=== PATIENT | male | born 1970 | race Caucasian/White ===

== ENCOUNTER 2016-09-12 20:25 | Observation (INO) | payer OTHER, SELFPAY ==
[2016-09-12] MEDS ORDERED: BABY ASPIRIN 81 MG CHEW PO ONE (20:43)
[2016-09-12] MEDS ORDERED: MORPHINE SULFATE 4 MG INJ IV ONE (20:43)
[2016-09-12] MEDS ORDERED: Zofran 4 MG/2 ML VIAL IV ONE (20:43)
[2016-09-12] MEDS ORDERED: Zofran 4 MG/2 ML VIAL ONE (20:48)
[2016-09-12] MEDS ORDERED: BABY ASPIRIN 81 MG CHEW ONE (20:49)
[2016-09-12] MEDS ORDERED: MORPHINE SULFATE 4 MG INJ ONE (20:49)
--- NOTE | 2016-09-12 20:51 | ERPHSYRPT ---
- History of Present Illness Time Seen by Provider: 09/12/16 20:39 Historian: patient Exam Limitations: no limitations Patient Subjective Stated Complaint: states that he was sitting at the elementary school show x 1 hour ago et began to have left-sided CP that radiated into the neck and upper arm - onset nausea and diaphoresis as well Triage Nursing Assessment: ambulatory to treatment area - steady gait - moves all extremities with equal strength. alert/oriented - anxious affect. skin pwd - no rash/injury. 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 He arrives with complaint of fluttering in the left anterior chest associated with throbbing pain in his left neck and upper left back symptoms since one hour the case occurred while the patient was watching a his children's school show. Patient states he had nausea she had diaphoresis states he had some shortness of breath. 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 they were 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, patient's chart shows a history of CABG as a child he states that he had open heart surgery for valve replacement, patient with a history of narcolepsy, Past surgical history includes heart valve replacement 10 years old questionable CABG, cholecystectomy, hernia repair, orthopedic surgery, right shoulder surgery Timing/Duration: today (one hour ago) Activities at Onset: other (watching a school show) Quality: throbbing Location: other (fluttering left upper chest throbbing left neck and back) Chest Pain Radiation: jaw, neck, back Severity of Pain-Max: moderate Severity of Pain-Current: moderate Modifying Factors: Improves With: nothing Aspirin Treatment Today: 81 mg x 1, provided by ED Allergies/Adverse Reactions: gabapentin [From Neurontin] Allergy (Severe, Verified 09/12/16 20:31) headaches escitalopram oxalate [From Lexapro] Allergy (Verified 09/12/16 20:31) Home Medications: Atorvastatin Calcium [Lipitor 20MG Tablet] 20 mg PO DAILY 03/06/12 [History] Metformin HCl 500 mg [Glucophage 500 MG] 500 mg PO BID 03/06/12 [History] Carvedilol 12.5 mg [Coreg 12.5 mg] 12.5 mg PO BID 10/25/12 [History] Omeprazole 20 MG [Prilosec 20 mg] 40 mg PO BID 10/25/12 [History] Testosterone Cypionate [Depo-Testosterone] 200 mg IM UD 10/25/12 [History] Albuterol 2.5 mg/3 ml Neb [Proventil 2.5 mg/3 ml Neb] 2.5 mg IH Q6H [History] Albuterol Sulfate [Proventil Hfa] 6.7 gm IH Q4H 09/10/15 [History] Armodafinil [Nuvigil] 250 mg PO DAILY 09/10/15 [History] Fluticasone/Vilanterol [Breo Ellipta 100-25 Mcg INH] 1 each IH DAILY 09/10/15 [ History] Isosorbide Mononitrate 60 mg [Imdur 60MG] 60 mg PO DAILY 09/10/15 [History] Ranolazine 500 MG [Ranexa 500 MG] 1,000 mg PO BID 09/10/15 [History] Ropinirole HCl [Requip] 0.25 mg PO BID 09/10/15 [History] Albuterol 2.5 mg/3 ml Neb [Proventil 2.5 mg/3 ml Neb] 2.5 mg IH UD [History] Albuterol Sulfate [Proventil Hfa] 6 gm IH UD 12/28/15 [History] Nitroglycerin 4.1 gm [facility] 12/28/15 [History] Apixaban [Eliquis] 10 mg PO DAILY 09/12/16 [History] Hx Tetanus, Diphtheria Vaccination/Date Given: Yes Hx Influenza Vaccination/Date Given: Yes Hx Pneumococcal Vaccination/Date Given: No Immunizations Up to Date: Yes - Review of Systems Constitutional: No Fever, No Chills Eyes: No Symptoms, No Discharge, No Eye Pain, No Eye Redness, No Itchy, No Photophobia, No Tearing, No Vision Changes, No Double Vision, No Foreign Body Sensation Ears, Nose, & Throat: No Ear Pain, No Ear Discharge, No Hearing Changes, No Tinnitus, No Nose Pain, No Nose Congestion, No Nose Discharge, No Sinus Drainage , No Epistaxis, No Mouth Pain, No Mouth Swelling, No Loose Teeth, No Throat Pain , No Throat Swelling, No Hoarse, No Painful Swallowing, No Snoring Respiratory: Dyspnea, No No Symptoms, No Cough, No Cyanosis, No Dyspnea on Exertion (MANCIA), No Wheezing Cardiac: Chest Pain (fluttering sensation in chest associated with throbbing pain in neck and left jaw and upper back), Palpitations, No Syncope, No Orthopnea Abdominal/Gastrointestinal: Nausea, No Abdominal Pain, No Vomiting, No Diarrhea , No Constipation, No Hematemesis, No Hematochezia, No Melena, No Dysphagia Genitourinary Symptoms: No Dysuria Musculoskeletal: No Back Pain, No Neck Pain Skin: No Rash Neurological: No Dizziness, No Focal Weakness, No Sensory Changes Psychological: No Symptoms Endocrine: No Symptoms All Other Systems: Reviewed and Negative - Past Medical History Pertinent Past Medical History: Yes Neurological History: TIA ENT History: No Pertinent History Cardiac History: Arrhythmia, Congenital Heart Disease, High Cholesterol, Myocardial Infarction ([place]), Other Respiratory History: No Pertinent History Endocrine Medical History: Diabetes Type II Musculoskeletal History: No Pertinent History GI Medical History: GERD History: No Pertinent History Psycho-Social History: No Pertinent History Male Reproductive Disorders: Other Other Medical History: 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, 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, history of afib, NARCOLEPSY - Past Surgical History Past Surgical History: Yes Neuro Surgical History: No Pertinent History Cardiac: CABG, Valve Replacement, Other Respiratory: Chest Surgery Gastrointestinal: Cholecystectomy, Hernia Repair Genitourinary: No Pertinent History Musculoskeletal: Orthopedic Surgery Male Surgical History: No Pertinent History Other Surgical History: CABG at age 10 for valve replacement and repair of holes in heart, right shoulder, great toenails removed 08/13/15 - Social History Smoking Status: Former smoker How long have you smoked: 15 Exposure to second hand smoke: No Drug Use: none Patient Lives Alone: No - Nursing Vital Signs Temperature: 98.3 F Temperature Source: Oral Pulse Rate: 68 Respiratory Rate: 16 Pain Intensity: 7 - Physical Exam General Appearance: mild distress Eye Exam: PERRL/EOMI, eyes nml inspection Ears, Nose, Throat Exam: normal ENT inspection, moist mucous membranes Neck Exam: normal inspection, non-tender, supple, full range of motion Respiratory Exam: normal breath sounds, lungs clear, No respiratory distress Cardiovascular Exam: regular rate/rhythm, normal heart sounds Gastrointestinal/Abdomen Exam: soft, No tenderness, No mass Back Exam: normal inspection, No CVA tenderness, No vertebral tenderness Extremity Exam: normal inspection, normal range of motion Neurologic Exam: alert, oriented x 3, cooperative, normal mood/affect, sensation nml, No motor deficits Skin Exam: normal color, warm, dry SpO2 Interpretation: normal (98%) SpO2: 98 Oxygen Delivery: Room Air - Course Nursing assessment & vital signs reviewed: Yes EKG Interpreted by Me: RATE (67 bpm), Sinus Rhythm, NORMAL AXIS, Right Bundle Branch Block, Other (EKG sinus rhythm with right bundle branch block 67 bpm normal axis QRS duration 156 ms, no acute ST or T wave changes no compared to April 21, 2016) - Radiology Exams Chest X-ray Interpretation: Interpreted by me, Reviewed by me, No Pneumonia, No Pneumothorax, Other (no acute disease process noted) Ordered Tests: Active Orders 24 hr Category Date Time Status ACCUCHECK [Accucheck] STAT Care 09/12/16 20:38 Active Instructional Technology Teacher STAT Care 09/12/16 20:43 Active EKG-ER Only STAT Care 09/12/16 20:43 Active IV Insertion STAT Care 09/12/16 20:43 Active Pulse Oximetry (ED) STAT Care 09/12/16 20:43 Active CHEST 1 VIEW (PORTABLE) Stat Exams 09/12/16 20:44 Taken CBC W DIFF Stat Lab 09/12/16 21:04 Completed CMP Stat Lab 09/12/16 21:04 Completed D-DIMER QUANTITATION Stat Lab 09/12/16 21:04 Completed PROTIME WITH INR Stat Lab 09/12/16 21:04 Completed PTT Stat Lab 09/12/16 21:04 Completed TROPONIN Q3H Lab 09/12/16 21:04 Completed TROPONIN Q3H Lab 09/12/16 23:45 Ordered TROPONIN Q3H Lab 09/13/16 02:45 Ordered TROPONIN Q3H Lab 09/13/16 05:45 Ordered TROPONIN Q3H Lab 09/13/16 08:45 Ordered Transfer Order Routine Transfer 09/12/16 22:35 Ordered Medication Summary Discontinued Medications Generic Name Dose Route Start Last Admin Trade Name Lio PRN Reason Stop Dose Admin Aspirin 81 mg 09/12/16 20:43 09/12/16 20:53 Baby Aspirin 81 Mg Chew PO 09/12/16 20:44 81 mg STAT ONE Administration Aspirin Confirm 09/12/16 20:49 Baby Aspirin 81 Mg Chew Administered 09/12/16 20:50 Dose 81 mg .ROUTE .STK-MED ONE Morphine Sulfate 4 mg 09/12/16 20:43 09/12/16 20:53 Morphine Sulfate 4 Mg Inj IV 09/12/16 20:44 4 mg STAT ONE Administration Morphine Sulfate Confirm 09/12/16 20:49 Morphine Sulfate 4 Mg Inj Administered 09/12/16 20:50 Dose 4 mg .ROUTE .STK-MED ONE Ondansetron HCl 4 mg 09/12/16 20:43 09/12/16 20:53 Zofran 4 Mg/2 Ml Vial IV 09/12/16 20:44 4 mg STAT ONE Administration Ondansetron HCl Confirm 09/12/16 20:48 Zofran 4 Mg/2 Ml Vial Administered 09/12/16 20:49 Dose 4 mg .ROUTE .STK-MED ONE Lab/Rad Data: Laboratory Result Diagrams 09/12/16 21:04 09/12/16 21:04 Laboratory Results 09/12/16 09/12/16 09/12/16 Range/Units 21:04 21:04 21:04 WBC (4.0-10.5) K/mm3 RBC (4.1-5.6) M/mm3 Hgb (12.5-18.0) gm/dl Hct (42-50) % MCV (78-100) fl MCH (26-32) pg MCHC (32-36) g/dl RDW (11.5-14.0) % Plt Count (150-450) K/mm3 MPV (6-9.5) fl Gran % (36.0-66.0) % Lymphocytes % (24.0-44.0) % Monocytes % (0.0-12.0) % Eosinophils % (0.00-5.0) % Basophils % (0.0-0.4) % Basophils # (0-0.4) INR 1.11 (0.8-3.0) PTT 30.7 (24.1-36.1) SECONDS D-Dimer < 0.200 (0.00-0.49) mg/L Sodium 142 (136-145) mEq/L Potassium 3.4 L (3.5-5.1) mEq/L Chloride 104 (98-107) mEq/L Carbon Dioxide 29.1 (21-32) mEq/L Anion Gap 12.1 (5-15) MEQ/L BUN 8 L (9-20) mg/dL Creatinine 0.79 (0.55-1.30) mg/dl Estimated GFR > 60 ML/MIN Glucose 127 H (70-110) MG/DL Calcium 9.1 (8.5-10.1) mg/dL Total Bilirubin 0.3 (0.2-1.0) mg/dL AST 16 (15-37) U/L ALT 34 (12-78) U/L Alkaline Phosphatase 71 (46-116) U/L Troponin I < 0.017 (0.000-0.056) ng/ml Serum Total Protein 6.8 (6.4-8.2) gm/dL Albumin 3.7 (3.4-5.0) g/dL 09/12/16 Range/Units 21:04 WBC 6.2 (4.0-10.5) K/mm3 RBC 4.62 (4.1-5.6) M/mm3 Hgb 13.6 (12.5-18.0) gm/dl Hct 40.4 L (42-50) % MCV 87.4 (78-100) fl MCH 29.4 (26-32) pg MCHC 33.7 (32-36) g/dl RDW 12.6 (11.5-14.0) % Plt Count 157 (150-450) K/mm3 MPV 10.6 H (6-9.5) fl Gran % 59.0 (36.0-66.0) % Lymphocytes % 30.1 (24.0-44.0) % Monocytes % 8.6 (0.0-12.0) % Eosinophils % 2.1 (0.00-5.0) % Basophils % 0.2 (0.0-0.4) % Basophils # 0.01 (0-0.4) INR (0.8-3.0) PTT (24.1-36.1) SECONDS D-Dimer (0.00-0.49) mg/L Sodium (136-145) mEq/L Potassium (3.5-5.1) mEq/L Chloride (98-107) mEq/L Carbon Dioxide (21-32) mEq/L Anion Gap (5-15) MEQ/L BUN (9-20) mg/dL Creatinine (0.55-1.30) mg/dl Estimated GFR ML/MIN Glucose (70-110) MG/DL Calcium (8.5-10.1) mg/dL Total Bilirubin (0.2-1.0) mg/dL AST (15-37) U/L ALT (12-78) U/L Alkaline Phosphatase (46-116) U/L Troponin I (0.000-0.056) ng/ml Serum Total Protein (6.4-8.2) gm/dL Albumin (3.4-5.0) g/dL - Progress Progress: improved Air Movement: fair Progress Note: 09/12/16 22:26 46-year-old white male with history of TIA, arrhythmia, congenital heart disease , hyperlipidemia, [place], diabetes, GERD, valvular replacement. Arrives with complaint of palpitations in his left upper anterior chest with pain in his neck and jaw symptoms since just prior to arrival. Patient is on Xaralto 10 mg twice a day he was given aspirin 81 mg orally. EKG is obtained no acute changes patient does have a right bundle-branch block > THIS IS CHRONIC patient states he still has somesharp pains in his left upper anterior chest and a cough now CASE IS DISCUSSED WITH dR. ADDISON GRADUATE STUDIES DEAN FOR dR. Kay will place patient on observation for serial enzymes. chest x-ray no acute changes labs are essentially normal. Will place patient on observation, telemetry with serial cardiac enzymes. - Departure Time of Disposition: 22:34 Departure Disposition: Observation (Dr. Kay) Clinical Impression: Chest pain Qualifiers: Chest pain type: unspecified Qualified Code(s): R07.9 - Chest pain, unspecified Condition: Fair Critical Care Time: No Referrals: YUMIKO KAY MD [Primary Care Provider] -
[2016-09-12 21:08] LABS: BASOPHIL % 0.2 % (0.0-0.4); Eosinophil % 2.1 % (0.00-5.0); Lymphocytes % 30.1 % (24.0-44.0); Mean Cell Volume 87.4 fl (78-100); Mean Corpuscular Hemoglobin 29.4 pg (26-32); Mean Platelet Volume 10.6 fl (6-9.5); Monocytes % 8.6 % (0.0-12.0); Platelet Count 157 K/mm3 (150-450); Red Blood Count 4.62 M/mm3 (4.1-5.6); Red Cell Distribution Width 12.6 % (11.5-14.0); White Blood Count 6.2 K/mm3 (4.0-10.5)
[2016-09-12 21:20] LABS: INR 1.11 (0.8-3.0); PROTIME 12.4 SECONDS (8.83-12.87)
[2016-09-12 21:22] LABS: PTT 30.7 SECONDS (24.1-36.1)
[2016-09-12 21:35] LABS: ALBUMIN 3.7 g/dL (3.4-5.0); ALKALINE PHOSPHATASE 71 U/L (46-116); ANION GAP 12.1 MEQ/L (5-15); BILIRUBIN,TOTAL 0.3 mg/dL (0.2-1.0); BLOOD UREA NITROGEN 8 mg/dL (9-20); CHLORIDE 104 mEq/L (98-107); Carbon Dioxide 29.1 mEq/L (21-32); Glucose 127 MG/DL (70-110); Potassium 3.4 mEq/L (3.5-5.1); SGOT/AST 16 U/L (15-37); SGPT/ALT 34 U/L (12-78); SODIUM 142 mEq/L (136-145); Total Protein 6.8 gm/dL (6.4-8.2)
[2016-09-12] MEDS ORDERED: Zofran 4 MG/2 ML VIAL IV PRN (22:55)
[2016-09-12] MEDS ORDERED: NovoLOG Insulin SQ PRN (22:55)
[2016-09-12] MEDS ORDERED: MORPHINE SULFATE 4 MG INJ IV PRN (22:55)
[2016-09-13] MEDS ORDERED: TYLENOL 325 MG PO PRN (04:15)
[2016-09-13 05:41] LABS: BASOPHIL % 0.2 % (0.0-0.4); Eosinophil % 1.9 % (0.00-5.0); Granulocytes % 60.5 % (36.0-66.0); Lymphocytes % 30.1 % (24.0-44.0); Mean Cell Volume 88.2 fl (78-100); Mean Corpuscular Hemoglobin 29.5 pg (26-32); Mean Platelet Volume 10.8 fl (6-9.5); Monocytes % 7.3 % (0.0-12.0); Platelet Count 157 K/mm3 (150-450); Red Cell Distribution Width 12.7 % (11.5-14.0); White Blood Count 6.5 K/mm3 (4.0-10.5)
[2016-09-13 06:00] LABS: ALBUMIN 3.4 g/dL (3.4-5.0); ALKALINE PHOSPHATASE 56 U/L (46-116); ANION GAP 13.3 MEQ/L (5-15); BILIRUBIN,TOTAL 0.3 mg/dL (0.2-1.0); BLOOD UREA NITROGEN 9 mg/dL (9-20); CHLORIDE 103 mEq/L (98-107); Carbon Dioxide 28.1 mEq/L (21-32); Glucose 152 MG/DL (70-110); Potassium 3.3 mEq/L (3.5-5.1); SGOT/AST 18 U/L (15-37); SGPT/ALT 33 U/L (12-78); SODIUM 141 mEq/L (136-145)
--- NOTE | 2016-09-13 08:41 | XRAY ---
Indication: Chest pain. Comparison: April 21, 2016. Portable chest remains clear again with borderline cardiomegaly and previous cardiothoracic surgery. Bony thorax intact. No new/acute findings.
--- NOTE | 2016-09-13 09:22 | PCM.SSS ---
History of Present Illness - Chief Complaint Chief Complaint: chest pain History of Present Illness: is a 46 year old male with a history of congenital heart disease who presented with chest pain last night, he also complained of palpitations. He reports symptoms began at rest, no diaphoresis, no nausea or dyspnea. He follows with Dr Hilliard and has had many admissions for chest pain, had a heart cath with no intervention 2 years ago per patient in [place]. - Review of Systems Constitutional: No Fever, No Chills Respiratory: No Cough, No Short Of Breath Cardiac: Chest Pain, Palpitations, No Edema, No Syncope Abdominal/Gastrointestinal: No Abdominal Pain, No Nausea, No Vomiting, No Diarrhea Genitourinary Symptoms: No Dysuria Skin: No Rash Neurological: No Dizziness, No Focal Weakness, No Sensory Changes All Other Systems: Reviewed and Negative Medications & Allergies Home Medications: Home Medication List Atorvastatin Calcium [Lipitor 20MG Tablet] 20 mg PO DAILY 03/06/12 [History Confirmed 09/12/16] Metformin HCl 500 mg [Glucophage 500 MG] 500 mg PO BID 03/06/12 [History Confirmed 09/12/16] Carvedilol 12.5 mg [Coreg 12.5 mg] 12.5 mg PO BID 10/25/12 [History Confirmed 09/12/16] Omeprazole 20 MG [Prilosec 20 mg] 20 mg PO BID 10/25/12 [History Confirmed 09/12] Testosterone Cypionate [Depo-Testosterone] 200 mg IM UD 10/25/12 [History Confirmed 09/12/16] Pregabalin 50 mg [Lyrica 50MG] 100 mg PO TID #90 03/24/14 [Rx Confirmed 09/12/16] Albuterol 2.5 mg/3 ml Neb [Proventil 2.5 mg/3 ml Neb] 2.5 mg IH Q6H [History Confirmed 09/12/16] Albuterol Sulfate [Proventil Hfa] 6.7 gm IH Q4H 09/10/15 [History Confirmed 06/30] Armodafinil [Nuvigil] 200 mg PO BID 09/10/15 [History Confirmed 09/12/16] Fluticasone/Vilanterol [Breo Ellipta 100-25 Mcg INH] 1 each IH DAILY 09/10/15 [ History Confirmed 09/12/16] Ropinirole HCl [Requip] 0.25 mg PO BID 09/10/15 [History Confirmed 09/12/16] Nitroglycerin 4.1 gm TL UD 12/28/15 [History Confirmed 09/12/16] Apixaban [Eliquis] 10 mg PO DAILY 09/12/16 [History Confirmed 09/12/16] Isosorbide Mononitrate 30 mg [Imdur 30 MG] 30 mg PO DAILY 09/12/16 [ History Confirmed 09/12/16] Losartan Potassium 50 mg [Cozaar 50 MG] 50 mg PO DAILY 09/12/16 [History Confirmed 09/12/16] Allergies/Adverse Reactions: Allergies Allergy/AdvReac Type Severity Reaction Status Date / Time gabapentin [From Neurontin] Allergy Severe headaches Verified 09/12/16 20:31 escitalopram oxalate Allergy Verified 09/12/16 20:31 [From Lexapro] - Past Medical History Past Medical History: Yes Neurological History: TIA ENT History: No Pertinent History Cardiac History: Arrhythmia, Congenital Heart Disease, High Cholesterol, Myocardial Infarction ([place]), Other Respiratory History: No Pertinent History Endocrine Medical History: Diabetes Type II Musculoskelatal History: No Pertinent History GI Medical History: GERD History: No Pertinent History Pyscho-Social History: No Pertinent History Male Reproductive Disorders: Other Comment: 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, 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, history of afib, NARCOLEPSY - Past Surgical History Past Surgical History: Yes Neuro Surgical History: No Pertinent History Cardiac History: CABG, Valve Replacement, Other Respiratory Surgery: Chest Surgery GI Surgical History: Cholecystectomy, Hernia Repair Genitourinary Surgical Hx: No Pertinent History Musculskeletal Surgical Hx: Orthopedic Surgery Male Surgical History: No Pertinent History Other Surgical History: CABG at age 10 for valve replacement and repair of holes in heart, right shoulder, great toenails removed 08/13/15 - Social History Smoking Status: Former smoker How long have you smoked: 15 Exposure to second hand smoke: No Alcohol: None Drug Use: none - Physical Exam Vital Signs: Vital Signs - 24 hr Temp Pulse Pulse Resp BP Pulse Ox 09/13/16 08:00 98 F 58 L 20 108/66 95 09/13/16 04:00 98.2 F 61 16 95/56 96 09/12/16 23:08 98.2 F 67 18 149/87 96 09/12/16 22:38 98.3 F 68 16 98 09/12/16 22:14 70 09/12/16 20:46 96 09/12/16 20:31 98.3 F 68 70 16 146/88 98 General Appearance: no apparent distress, alert Neurologic Exam: alert, oriented x 3, cooperative, normal mood/affect, nml cerebellar function, nml station & gait, sensation nml, No motor deficits Respiratory Exam: normal breath sounds, lungs clear, No respiratory distress Cardiovascular Exam: regular rate/rhythm, normal heart sounds, normal peripheral pulses Gastrointestinal/Abdomen Exam: soft, normal bowel sounds, No tenderness, No mass Extremity Exam: normal inspection, normal range of motion, pelvis stable Skin Exam: normal color, warm, dry, No rash Results - Labs Lab/Micro Results: Accuchecks Accucheck Value: 137 Lab Results-Last 24 Hours 09/13/16 09/13/16 09/13/16 Range/Units 02:47 05:25 05:25 WBC 6.5 (4.0-10.5) K/mm3 RBC 4.40 (4.1-5.6) M/mm3 Hgb 13.0 (12.5-18.0) gm/dl Hct 38.8 L (42-50) % MCV 88.2 (78-100) fl MCH 29.5 (26-32) pg MCHC 33.5 (32-36) g/dl RDW 12.7 (11.5-14.0) % Plt Count 157 (150-450) K/mm3 MPV 10.8 H (6-9.5) fl Gran % 60.5 (36.0-66.0) % Lymphocytes % 30.1 (24.0-44.0) % Monocytes % 7.3 (0.0-12.0) % Eosinophils % 1.9 (0.00-5.0) % Basophils % 0.2 (0.0-0.4) % Basophils # 0.01 (0-0.4) Sodium (136-145) mEq/L Potassium (3.5-5.1) mEq/L Chloride (98-107) mEq/L Carbon Dioxide (21-32) mEq/L Anion Gap (5-15) MEQ/L BUN (9-20) mg/dL Creatinine (0.55-1.30) mg/dl Estimated GFR ML/MIN Glucose (70-110) MG/DL Calcium (8.5-10.1) mg/dL Total Bilirubin (0.2-1.0) mg/dL AST (15-37) U/L ALT (12-78) U/L Alkaline Phosphatase (46-116) U/L Troponin I < 0.017 < 0.017 (0.000-0.056) ng/ml Serum Total Protein (6.4-8.2) gm/dL Albumin (3.4-5.0) g/dL 09/13/16 Range/Units 05:25 WBC (4.0-10.5) K/mm3 RBC (4.1-5.6) M/mm3 Hgb (12.5-18.0) gm/dl Hct (42-50) % MCV (78-100) fl MCH (26-32) pg MCHC (32-36) g/dl RDW (11.5-14.0) % Plt Count (150-450) K/mm3 MPV (6-9.5) fl Gran % (36.0-66.0) % Lymphocytes % (24.0-44.0) % Monocytes % (0.0-12.0) % Eosinophils % (0.00-5.0) % Basophils % (0.0-0.4) % Basophils # (0-0.4) Sodium 141 (136-145) mEq/L Potassium 3.3 L (3.5-5.1) mEq/L Chloride 103 (98-107) mEq/L Carbon Dioxide 28.1 (21-32) mEq/L Anion Gap 13.3 (5-15) MEQ/L BUN 9 (9-20) mg/dL Creatinine 1.08 (0.55-1.30) mg/dl Estimated GFR > 60 ML/MIN Glucose 152 H (70-110) MG/DL Calcium 8.8 (8.5-10.1) mg/dL Total Bilirubin 0.3 (0.2-1.0) mg/dL AST 18 (15-37) U/L ALT 33 (12-78) U/L Alkaline Phosphatase 56 (46-116) U/L Troponin I (0.000-0.056) ng/ml Serum Total Protein 6.0 L (6.4-8.2) gm/dL Albumin 3.4 (3.4-5.0) g/dL Accuchecks Accucheck Value: 137 Assessment/Plan (1) Chest pain Current Visit: Yes Status: Acute Qualifiers: Chest pain type: unspecified Qualified Code(s): R07.9 - Chest pain, unspecified Assessment & Plan: GA ruled out, will refer back to cardiology. has had extensive workup with no obvious etiology. continue current medications. patient would like a second opinion with Dr Leslie in [place] Code(s): R07.9 - CHEST PAIN, UNSPECIFIED (2) Palpitations Current Visit: Yes Status: Acute Code(s): R00.2 - PALPITATIONS Hospital Summary - Vitals & Intake/Output Vital Signs: Vital Signs Temperature 98 F 09/13/16 08:00 Pulse Rate 58 L 09/13/16 08:00 Respiratory Rate 20 09/13/16 08:00 Blood Pressure 108/66 09/13/16 08:00 O2 Sat by Pulse Oximetry 95 09/13/16 08:00 Intake & Output: Intake & Output 09/10/16 09/11/16 09/12/16 09/13/16 11:59 11:59 11:59 11:59 Intake Total 820 Balance 820 Weight 74.208 kg - Lab Result Diagrams: 09/13/16 05:25 09/13/16 05:25 Lab Results-Last 24 Hrs: Accuchecks Accucheck Value: 137 Lab Results-Last 24 Hours 09/13/16 09/13/16 09/13/16 Range/Units 02:47 05:25 05:25 WBC 6.5 (4.0-10.5) K/mm3 RBC 4.40 (4.1-5.6) M/mm3 Hgb 13.0 (12.5-18.0) gm/dl Hct 38.8 L (42-50) % MCV 88.2 (78-100) fl MCH 29.5 (26-32) pg MCHC 33.5 (32-36) g/dl RDW 12.7 (11.5-14.0) % Plt Count 157 (150-450) K/mm3 MPV 10.8 H (6-9.5) fl Gran % 60.5 (36.0-66.0) % Lymphocytes % 30.1 (24.0-44.0) % Monocytes % 7.3 (0.0-12.0) % Eosinophils % 1.9 (0.00-5.0) % Basophils % 0.2 (0.0-0.4) % Basophils # 0.01 (0-0.4) Sodium (136-145) mEq/L Potassium (3.5-5.1) mEq/L Chloride (98-107) mEq/L Carbon Dioxide (21-32) mEq/L Anion Gap (5-15) MEQ/L BUN (9-20) mg/dL Creatinine (0.55-1.30) mg/dl Estimated GFR ML/MIN Glucose (70-110) MG/DL Calcium (8.5-10.1) mg/dL Total Bilirubin (0.2-1.0) mg/dL AST (15-37) U/L ALT (12-78) U/L Alkaline Phosphatase (46-116) U/L Troponin I < 0.017 < 0.017 (0.000-0.056) ng/ml Serum Total Protein (6.4-8.2) gm/dL Albumin (3.4-5.0) g/dL 09/13/16 Range/Units 05:25 WBC (4.0-10.5) K/mm3 RBC (4.1-5.6) M/mm3 Hgb (12.5-18.0) gm/dl Hct (42-50) % MCV (78-100) fl MCH (26-32) pg MCHC (32-36) g/dl RDW (11.5-14.0) % Plt Count (150-450) K/mm3 MPV (6-9.5) fl Gran % (36.0-66.0) % Lymphocytes % (24.0-44.0) % Monocytes % (0.0-12.0) % Eosinophils % (0.00-5.0) % Basophils % (0.0-0.4) % Basophils # (0-0.4) Sodium 141 (136-145) mEq/L Potassium 3.3 L (3.5-5.1) mEq/L Chloride 103 (98-107) mEq/L Carbon Dioxide 28.1 (21-32) mEq/L Anion Gap 13.3 (5-15) MEQ/L BUN 9 (9-20) mg/dL Creatinine 1.08 (0.55-1.30) mg/dl Estimated GFR > 60 ML/MIN Glucose 152 H (70-110) MG/DL Calcium 8.8 (8.5-10.1) mg/dL Total Bilirubin 0.3 (0.2-1.0) mg/dL AST 18 (15-37) U/L ALT 33 (12-78) U/L Alkaline Phosphatase 56 (46-116) U/L Troponin I (0.000-0.056) ng/ml Serum Total Protein 6.0 L (6.4-8.2) gm/dL Albumin 3.4 (3.4-5.0) g/dL Micro Results-Entire Visit: Accuchecks Accucheck Value: 137 - Discharge Disposition: Home, Self-Care Condition: Good Prescriptions: Continue Atorvastatin Calcium [Lipitor 20MG Tablet] 20 mg PO DAILY Metformin HCl 500 mg [Glucophage 500 MG] 500 mg PO BID Carvedilol 12.5 mg [Coreg 12.5 mg] 12.5 mg PO BID Testosterone Cypionate [Depo-Testosterone] 200 mg IM UD Omeprazole 20 MG [Prilosec 20 mg] 20 mg PO BID Pregabalin 50 mg [Lyrica 50MG] 100 mg PO TID #90 Fluticasone/Vilanterol [Breo Ellipta 100-25 Mcg INH] 1 each IH DAILY Albuterol Sulfate [Proventil Hfa] 6.7 gm IH Q4H Armodafinil [Nuvigil] 200 mg PO BID Ropinirole HCl [Requip] 0.25 mg PO BID Albuterol 2.5 mg/3 ml Neb [Proventil 2.5 mg/3 ml Neb] 2.5 mg IH Q6H Nitroglycerin 4.1 gm TL UD Apixaban [Eliquis] 10 mg PO DAILY Losartan Potassium 50 mg [Cozaar 50 MG] 50 mg PO DAILY Isosorbide Mononitrate 30 mg [Imdur 30 MG] 30 mg PO DAILY Follow up with: ZAK HILLIARD [COURTESY STAFF] - 1 Week
[2016-09-13] MEDS ORDERED: NITROGLYCERIN 4.1 GM TL SCH (09:45)
[2016-09-13] MEDS ORDERED: Nitrostat 0.4 MG Tablet SL PRN (09:57)
[2016-09-13] MEDS ORDERED: ARMODAFINIL 200 MG PO SCH (10:00)
[2016-09-13] MEDS ORDERED: LYRICA 100MG PO SCH (10:00)
[2016-09-13] MEDS ORDERED: Requip 0.5 MG PO SCH (10:00)
[2016-09-13] MEDS ORDERED: Lyrica 50MG PO SCH (10:00)
[2016-09-13] MEDS ORDERED: ELIQUIS PO SCH (10:00)
[2016-09-13] MEDS ORDERED: Protonix 40MG Tablet PO SCH (10:00)
[2016-09-13] MEDS ORDERED: Glucophage 500 MG PO SCH (10:00)
[2016-09-13] MEDS ORDERED: Imdur 30 MG PO SCH (10:00)
[2016-09-13] MEDS ORDERED: NON-FORMULARY ITEM (Omeprazole 20 Mg [Prilosec 20 Mg] 20 MG) PO SCH (10:00)
[2016-09-13] MEDS ORDERED: NON-FORMULARY ITEM (Atorvastatin Calcium 20 MG) PO SCH (10:00)
[2016-09-13] MEDS ORDERED: Cozaar 50 MG PO SCH (10:00)
[2016-09-13] MEDS ORDERED: COREG 12.5 MG PO SCH (10:00)
[2016-09-13] MEDS ORDERED: NON-FORMULARY ITEM (Ropinirole Hcl [Requip] 0.25 MG) PO SCH (10:00)
[2016-09-13] MEDS ORDERED: PROVENTIL COMMON CANISTER IH SCH (10:15)
[2016-09-13] MEDS ORDERED: Advair Hfa 115/21 Common canister IH SCH (10:15)
[2016-09-13] MEDS ORDERED: Ventolin Hfa MDI IH SCH (10:15)
[2016-09-13] MEDS ORDERED: PROVENTIL 2.5 MG/3 ML NEB IH SCH (10:30)
[2016-09-13 11:27] VITALS: BP 130/65; PULSE 69; O2SAT 96
[2016-09-13] MEDS ORDERED: ZOCOR 20MG PO SCH (22:00)
[2016-09-14] MEDS ORDERED: NON-FORMULARY ITEM (Fluticasone/Vilanterol [Breo Ellipta 100-25 Mcg Inh] 1 EACH) IH SCH (10:00)
[2016-09-18] MEDS ORDERED: DEPO-TESTOSTERONE IM SCH (09:45)
== END 2016-09-13 11:00 | disposition home or self-care (01) ==
LOC: ED 20:25 → MED SURG 22:51
PROVIDERS: ADMIT Family Medicine; ATTEND Family Medicine
DX: R07.9 Chest pain, unspecified (principal); R00.2 Palpitations; E11.9 Type 2 diabetes mellitus without complications; Z79.4 Long term (current) use of insulin; E78.5 Hyperlipidemia, unspecified; K21.9 Gastro-esophageal reflux disease without esophagitis; I48.91 Unspecified atrial fibrillation
CPT/HCPCS: 36000; 36415; 71010; 80053; 82962; 84484; 85025; 85379; 85610; 85730; 93005; 93041; 93268; 96374; 96375; 99285; G0378; J2270; J2405; A9270-GY

== ENCOUNTER 2016-09-21 15:54 | Emergency (ER) | payer OTHER, SELFPAY ==
[2012-03-07 14:17] VITALS: BP 118/65
== END 2016-09-21 17:03 | disposition left against medical advice (07) ==
LOC: ED 15:54
DX: Z53.9 Procedure and treatment not carried out, unspecified reason (principal)

== ENCOUNTER 2016-12-07 21:19 | Emergency (ER) | payer OTHER, SELFPAY ==
[2016-12-07] MEDS ORDERED: ROCEPHIN 1 Gm-D5w 50 ml Bag** 1 G/50 ML IVPB IV STA (22:05)
[2016-12-07] MEDS ORDERED: Sodium Chloride 0.9% 1000 ML 1,000 ML ONE (22:12)
[2016-12-07] MEDS ORDERED: ROCEPHIN 1 Gm-D5w 50 ml Bag** 1 G/50 ML IVPB IV ONE (22:12)
--- NOTE | 2016-12-07 22:13 | ERPHSYRPT ---
- History of Present Illness Time Seen by Provider: 12/07/16 21:55 Source: patient Exam Limitations: clinical condition Patient Subjective Stated Complaint: right sided jaw pain and swelling started this morning when he woke up. Triage Nursing Assessment: Pt stated that he woke up a 0600 today with his right jaw hurting. Pt stated that he took his false teeth out because he thought that was why it was hurting. Pt stated as the day went on his right side of his jaw started swelling and getting hard and hurting worse. Pt stated that it hurt to chew anything. Pt denied any shortness of breath. Pt stated that this has never happened before. Pt stated that he has no teeth left. Pt stated that they are all false teeth. Physician History: PATIENT WITH HISTORY OF TIA, CONGENITAL HEART DISEASE, ATRIAL FIBRILLATION, AND TYPE 2 DIABETES, COMPLAINS OF RIGHT LOWER JAW PAIN ASSOCIATED WITH SWELLING. DENIES FEVER, DIFFICULTY BREATHING OR SWALLOWINGT. ADMITS TO WEARING DENTURES. ALSO COMPLAINS OF RASH OVER BOTH THIGHS. Timing/Duration: gradual onset Severity: mild Prearrival Treatment: no prearrival treatment, prescription meds Associated Symptoms: facial pain/swelling, jaw pain Allergies/Adverse Reactions: gabapentin [From Neurontin] Allergy (Severe, Verified 09/12/16 20:31) headaches escitalopram oxalate [From Lexapro] Allergy (Verified 09/12/16 20:31) Home Medications: Atorvastatin Calcium [Lipitor 20MG Tablet] 20 mg PO DAILY 03/06/12 [History] Metformin HCl 500 mg [Glucophage 500 MG] 500 mg PO BID 03/06/12 [History] Carvedilol 12.5 mg [Coreg 12.5 mg] 12.5 mg PO BID 10/25/12 [History] Omeprazole 20 MG [Prilosec 20 mg] 20 mg PO BID 10/25/12 [History] Testosterone Cypionate [Depo-Testosterone] 200 mg IM UD 10/25/12 [History] Albuterol 2.5 mg/3 ml Neb [Proventil 2.5 mg/3 ml Neb] 2.5 mg IH Q6H [History] Albuterol Sulfate [Proventil Hfa] 6.7 gm IH Q4H 09/10/15 [History] Armodafinil [Nuvigil] 200 mg PO BID 09/10/15 [History] Fluticasone/Vilanterol [Breo Ellipta 100-25 Mcg INH] 1 each IH DAILY 09/10/15 [ History] Ropinirole HCl [Requip] 0.25 mg PO BID 09/10/15 [History] Nitroglycerin 4.1 gm TL UD 12/28/15 [History] Apixaban [Eliquis] 10 mg PO DAILY 09/12/16 [History] Isosorbide Mononitrate 30 mg [Imdur 30 MG] 30 mg PO DAILY 09/12/16 [History ] Losartan Potassium 50 mg [Cozaar 50 MG] 50 mg PO DAILY 09/12/16 [History] Hx Tetanus, Diphtheria Vaccination/Date Given: No ([facility]) Hx Influenza Vaccination/Date Given: Yes Hx Pneumococcal Vaccination/Date Given: Yes (2 years ago) Immunizations Up to Date: Yes - Review of Systems Constitutional: No Fever, No Chills Eyes: No Symptoms Ears, Nose, & Throat: Mouth Swelling Respiratory: No Symptoms, No Cough, No Dyspnea Cardiac: No Chest Pain, No Edema, No Syncope Abdominal/Gastrointestinal: No Symptoms, No Abdominal Pain, No Nausea, No Vomiting, No Diarrhea Genitourinary Symptoms: No Dysuria Musculoskeletal: No Symptoms, No Back Pain, No Neck Pain Skin: No Symptoms, No Rash Neurological: No Symptoms, No Dizziness, No Focal Weakness, No Sensory Changes Psychological: No Symptoms Endocrine: No Symptoms All Other Systems: Reviewed and Negative - Past Medical History Pertinent Past Medical History: Yes Neurological History: No Pertinent History ENT History: No Pertinent History Cardiac History: Congenital Heart Disease Respiratory History: COPD Endocrine Medical History: Diabetes Type I Musculoskeletal History: No Pertinent History GI Medical History: No Pertinent History History: No Pertinent History Psycho-Social History: Depression Male Reproductive Disorders: No Pertinent History Other Medical History: 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, 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, history of afib, NARCOLEPSY - Past Surgical History Past Surgical History: Yes (heart surgery) Neuro Surgical History: No Pertinent History Cardiac: Cardiac Catheterization Respiratory: No Pertinent History Gastrointestinal: Cholecystectomy, Hernia Repair Genitourinary: No Pertinent History Musculoskeletal: No Pertinent History Male Surgical History: No Pertinent History Other Surgical History: CABG at age 10 for valve replacement and repair of holes in heart, right shoulder, great toenails removed 08/13/15 - Social History Smoking Status: Never smoker How long have you smoked: 15 Exposure to second hand smoke: Yes Drug Use: none Patient Lives Alone: No - Nursing Vital Signs Nursing Vital Signs: Initial Vital Signs Temperature 98.6 F 12/07/16 21:41 Pulse Rate 64 12/07/16 21:41 Respiratory Rate 16 12/07/16 21:41 Blood Pressure 165/92 12/07/16 21:41 O2 Sat by Pulse Oximetry 96 12/07/16 21:41 Pain Scale Pain Intensity 6 - Physical Exam General Appearance: no apparent distress, alert Nasal Exam: normal inspection Throat Exam: dental tenderness (EDENTULOUS, THERE IS A 8MM LACERATION OVER GINGIVA ADJACENT TO RIGHT LOWER BICUSPID AND LATERAL INCISOR WITH SURROUNDING SWELLING AND TENDERNESS) Neck Exam: normal inspection Cardiovascular/Respiratory Exam: chest non-tender Neurologic Exam: alert, oriented x 3 Skin Exam: other (THERE IS BILAT PROXIMAL THIGH SCALY ERTHEMATOUS LESIONS 4CM X 5CM AND 3CM X 2CM LESIONS WITH RAISED BORDERS AND CLEAR CENTER) SpO2 Interpretation: normal SpO2: 96 Oxygen Delivery: Room Air Ordered Tests: Active Orders 24 hr Category Date Time Status IV Insertion STAT Care 12/07/16 22:04 Ordered Medication Summary Generic Name Dose Route Start Last Admin Trade Name Freq PRN Reason Stop Dose Admin Ceftriaxone Sodium/Dextrose 1 g in 50 mls @ 100 mls/hr 12/07/16 22:05 Rocephin 1 Gm-D5w 50 Ml Bag IV 12/07/16 22:34 STAT STA Sodium Chloride 1,000 mls @ 100 mls/hr 12/07/16 22:15 Sodium Chloride 0.9% 1000 Ml IV 01/06/17 22:14 .Q10H ERNESTINA - Progress Progress Note: 12/07/16 22:22 PATIENT GIVEN IV ROCEPHIN 1GM IVPB Counseled pt/family regarding: diagnosis, need for follow-up - Departure Time of Disposition: 22:50 Departure Disposition: Home Clinical Impression: GINGIVAL CELLULITIS, TINEA CORPORIS Condition: Stable Critical Care Time: No Additional Instructions: AUGMENTIN 875MG TWICE DAILY FOR 10 DAYS. AVOID WEARING LOWER DENTURES UNTIL EVALUATED BY DENTIST. APPLY LOTRIMIN CREAM OVER RASH TWICE DAILY FOR 2 WEEKS. CLEANSE RASH WITH SOAP AND WATER PRIOR TO CREAM APPLICATION. CONSULT YOUR FAMILY PHYSICIAN FOR EVALUATION IN 1 WEEK. Prescriptions: Amox Tr/Potass Clav. 875 mg [Augmentin 875-125 Tablet] 875 mg PO BID #20 tablet Clotrimazole Cream 30 gm [Lotrimin Cream 30 gm] 30 gm TP BID #1 cream
[2016-12-07] MEDS ORDERED: Sodium Chloride 0.9% 1000 ML 1,000 ML IV SCH (22:15)
[2016-12-07 22:29] VITALS: PULSE 60
[2016-12-07 22:58] VITALS: BP 148/70; O2SAT 98
== END 2016-12-07 22:58 | disposition home or self-care (01) ==
LOC: ED 21:19
DX: L03.818 Cellulitis of other sites (principal); B35.4 Tinea corporis; R68.84 Jaw pain; M25.48 Effusion, other site
CPT/HCPCS: 36000; 96360; 96365; 99284; J0696

== ENCOUNTER 2017-02-19 23:02 | Emergency (ER) | payer OTHER, SELFPAY ==
[2017-02-19] MEDS ORDERED: BABY ASPIRIN 81 MG CHEW PO ONE (23:10)
[2017-02-19] MEDS ORDERED: Nitrostat 0.4 MG (ED) SL ONE (23:10)
[2017-02-19] MEDS ORDERED: Sodium Chloride 0.9% 1000 ML 1,000 ML IV SCH (23:15)
[2017-02-19] MEDS ORDERED: Phenergan 25 MG INJ IV ONE (23:24)
--- NOTE | 2017-02-19 23:24 | ERPHSYRPT ---
- History of Present Illness Time Seen by Provider: 02/19/17 23:02 Historian: patient Exam Limitations: no limitations Patient Subjective Stated Complaint: Chest pain x 45-60 min left side of chest radiating into back and left neck. Describes as ache, constant. Used NTG x 6 RADIATOR CLEANER without relief. Pain 8/10. States nausea. States pain is somewhat worse with cough. Dry cough noted during triage. Reports recently on antibiotics for bronchitis Triage Nursing Assessment: Pt alert, oriented, answers all questions appropriately. Skin pink, warm, dry. Resps non-labored. Ambulatory to tx room, steady gait noted. EKG performed during triage. Sinus rhythm noted on monitor. Physician History: FOR THE PAST HOUR PT HAS HAD INTERMITTENT ACHY LEFT ANTERIOR CHEST PAIN RADIATING TO THE BACK, LEFT SHOULDER AND LEFT JAW LASTING UP TO 20 MINUTES PER EPISODE WITH NAUSEA AND TINGLING/BURNING OF THE SOLES OF HIS FEET. PT ALSO C/O A COUGH FOR THE PAST WEEK INITIALLY PRODUCTIVE OF GREEN PHLEGM FOR WHICH PT HAS BEEN TAKING AN ANTIBIOTIC TWICE DAILY FOR THE PAST WEEK. PT DENIES VOMITING, SHORTNESS OF AIR ,ABDOMINAL PAIN, FEVER. Aspirin Treatment Today: 81 mg x 4, provided by ED Allergies/Adverse Reactions: gabapentin [From Neurontin] Allergy (Severe, Verified 02/19/17 23:19) headaches escitalopram oxalate [From Lexapro] Allergy (Verified 02/19/17 23:19) Home Medications: Atorvastatin Calcium [Lipitor 20MG Tablet] 40 mg PO DAILY 03/06/12 [History] Metformin HCl 500 mg [Glucophage 500 MG] 500 mg PO BID 03/06/12 [History] Carvedilol 12.5 mg [Coreg 12.5 mg] 12.5 mg PO BID 10/25/12 [History] Omeprazole 20 MG [Prilosec 20 mg] 20 mg PO BID 10/25/12 [History] Testosterone Cypionate [Depo-Testosterone] 200 mg IM UD 10/25/12 [History] Albuterol 2.5 mg/3 ml Neb [Proventil 2.5 mg/3 ml Neb] 2.5 mg IH Q6H [History] Albuterol Sulfate [Proventil Hfa] 6.7 gm IH Q4H 09/10/15 [History] Armodafinil [Nuvigil] 200 mg PO BID 09/10/15 [History] Fluticasone/Vilanterol [Breo Ellipta 100-25 Mcg INH] 1 each IH DAILY 09/10/15 [ History] Ropinirole HCl [Requip] 0.25 mg PO BID 09/10/15 [History] Nitroglycerin 4.1 gm TL UD 12/28/15 [History] Apixaban [Eliquis] 10 mg PO DAILY 09/12/16 [History] Isosorbide Mononitrate 30 mg [Imdur 30 MG] 30 mg PO DAILY 09/12/16 [History ] Losartan Potassium 50 mg [Cozaar 50 MG] 50 mg PO DAILY 09/12/16 [History] Hx Tetanus, Diphtheria Vaccination/Date Given: No ([facility]) Hx Influenza Vaccination/Date Given: Yes Hx Pneumococcal Vaccination/Date Given: Yes (2 years ago) Immunizations Up to Date: Yes - Review of Systems Constitutional: No Fever Ears, Nose, & Throat: Other (LEFT JAW PAIN) Respiratory: No Dyspnea Cardiac: Chest Pain Abdominal/Gastrointestinal: Nausea, No Abdominal Pain, No Vomiting Musculoskeletal: Back Pain, Joint Pain (LEFT SHOULDER PAIN) Skin: No Rash Endocrine: No Excessive Sweating All Other Systems: Reviewed and Negative - Past Medical History Pertinent Past Medical History: Yes Neurological History: No Pertinent History ENT History: No Pertinent History Cardiac History: Congenital Heart Disease Respiratory History: COPD Endocrine Medical History: Diabetes Type I Musculoskeletal History: No Pertinent History GI Medical History: No Pertinent History History: No Pertinent History Psycho-Social History: Depression Male Reproductive Disorders: No Pertinent History Other Medical History: 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, 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, history of afib, NARCOLEPSY - Past Surgical History Past Surgical History: Yes (heart surgery) Neuro Surgical History: No Pertinent History Cardiac: Cardiac Catheterization Respiratory: No Pertinent History Gastrointestinal: Cholecystectomy, Hernia Repair Genitourinary: No Pertinent History Musculoskeletal: No Pertinent History Male Surgical History: No Pertinent History Other Surgical History: CABG at age 10 for valve replacement and repair of holes in heart, right shoulder, great toenails removed 08/13/15 - Social History Smoking Status: Former smoker How long have you smoked: 15 Exposure to second hand smoke: No Drug Use: none Patient Lives Alone: No - Nursing Vital Signs Nursing Vital Signs: Initial Vital Signs Temperature 99.0 F 02/19/17 23:04 Pulse Rate 70 02/19/17 23:04 Respiratory Rate 20 02/19/17 23:04 Blood Pressure 156/93 02/19/17 23:04 O2 Sat by Pulse Oximetry 97 02/19/17 23:04 Pain Scale Pain Intensity 8 - Physical Exam General Appearance: alert Eye Exam: PERRL/EOMI Ears, Nose, Throat Exam: pharynx normal, moist mucous membranes Neck Exam: normal inspection Respiratory Exam: lungs clear Cardiovascular Exam: normal heart sounds Gastrointestinal/Abdomen Exam: soft, normal bowel sounds Back Exam: normal range of motion Extremity Exam: normal inspection, No pedal edema Neurologic Exam: alert, cooperative Skin Exam: warm, dry SpO2 Interpretation: normal SpO2: 97 Oxygen Delivery: Room Air - Course Nursing assessment & vital signs reviewed: Yes EKG Interpreted by Me: RATE (64), Sinus Rhythm, NORMAL AXIS, LAFB, NORMAL INTERVALS, Right Bundle Branch Block - Radiology Exams Chest X-ray Interpretation: Interpreted by me (CM) Ordered Tests: Active Orders 24 hr Category Date Time Status Audio Visual Engineer STAT Care 02/19/17 23:22 Active EKG-ER Only STAT Care 02/19/17 23:10 Active EKG-ER Only STAT Care 02/20/17 01:39 Active IV Insertion STAT Care 02/19/17 23:10 Active Oxygen-ED Only NASAL CANNULA 2 lpm Care 02/19/17 23:10 Active Pulse Oximetry (ED) STAT Care 02/19/17 23:10 Active CHEST 1 VIEW (PORTABLE) Stat Exams 02/19/17 23:11 Taken AMYLASE Stat Lab 02/19/17 23:15 Completed CBC W DIFF Stat Lab 02/19/17 23:15 Completed CMP Stat Lab 02/19/17 23:15 Completed LIPASE Stat Lab 02/19/17 23:15 Completed MAGNESIUM Stat Lab 02/19/17 23:15 Completed NT PRO BNP Stat Lab 02/19/17 23:15 Completed PROTIME WITH INR Stat Lab 02/19/17 23:15 Completed PTT Stat Lab 02/19/17 23:15 Completed TROPONIN Q3H Lab 02/19/17 23:15 Completed TROPONIN Q3H Lab 02/20/17 02:11 Completed UA W/RFX UR CULTURE Stat Lab 02/19/17 23:10 Ordered Urine Triage Profile Stat Lab 02/19/17 23:10 Ordered Medication Summary Generic Name Dose Route Start Last Admin Trade Name Lio PRN Reason Stop Dose Admin Sodium Chloride 1,000 mls @ 100 mls/hr 02/19/17 23:15 02/19/17 23:49 Sodium Chloride 0.9% 1000 Ml IV 03/21/17 23:14 100 mls/hr .Q10H ERNESTINA Administration Magnesium Oxide 400 mg 02/20/17 10:00 Mag-Ox 400 PO 03/22/17 09:59 BID ERNESTINA Discontinued Medications Generic Name Dose Route Start Last Admin Trade Name Lio PRN Reason Stop Dose Admin Aspirin 324 mg 02/19/17 23:10 02/19/17 23:48 Baby Aspirin 81 Mg Chew PO 02/19/17 23:11 324 mg STAT ONE Administration Aspirin Confirm 02/19/17 23:47 Baby Aspirin 81 Mg Chew Administered 02/19/17 23:48 Dose 324 mg .ROUTE .STK-MED ONE Hydromorphone HCl 1 mg 02/20/17 00:01 02/20/17 00:11 Hydromorphone 1 Mg/Ml Ampule IV 02/20/17 00:02 1 mg STAT ONE Administration Hydromorphone HCl Confirm 02/20/17 00:08 Hydromorphone 1 Mg/Ml Ampule Administered 02/20/17 00:09 Dose 1 mg .ROUTE .STK-MED ONE Nitroglycerin 0.4 mg 02/19/17 23:10 02/19/17 23:49 Nitrostat 0.4 Mg (Ed) SL 02/19/17 23:11 0.4 mg STAT ONE Administration Promethazine HCl 12.5 mg 02/19/17 23:24 02/19/17 23:48 Phenergan 25 Mg Inj IV 02/19/17 23:25 12.5 mg STAT ONE Administration Promethazine HCl Confirm 02/19/17 23:42 Phenergan 25 Mg Inj Administered 02/19/17 23:43 Dose 25 mg .ROUTE .STK-MED ONE Lab/Rad Data: Laboratory Result Diagrams 02/19/17 23:15 02/19/17 23:15 Laboratory Results 02/20/17 02/19/17 02/19/17 Range/Units 02:11 23:15 23:15 WBC (4.0-10.5) K/mm3 RBC (4.1-5.6) M/mm3 Hgb (12.5-18.0) gm/dl Hct (42-50) % MCV (78-100) fl MCH (26-32) pg MCHC (32-36) g/dl RDW (11.5-14.0) % Plt Count (150-450) K/mm3 MPV (6-9.5) fl Gran % (36.0-66.0) % Lymphocytes % (24.0-44.0) % Monocytes % (0.0-12.0) % Eosinophils % (0.00-5.0) % Basophils % (0.0-0.4) % Basophils # (0-0.4) INR 1.26 (0.8-3.0) APTT 33.1 (24.1-36.1) SECONDS Sodium (136-145) mEq/L Potassium (3.5-5.1) mEq/L Chloride (98-107) mEq/L Carbon Dioxide (21-32) mEq/L Anion Gap (5-15) MEQ/L BUN (9-20) mg/dL Creatinine (0.55-1.30) mg/dl Estimated GFR ML/MIN Glucose (70-110) MG/DL Calcium (8.5-10.1) mg/dL Magnesium (1.8-2.4) mg/dL Total Bilirubin (0.2-1.0) mg/dL AST (15-37) U/L ALT (12-78) U/L Alkaline Phosphatase (46-116) U/L Troponin I < 0.017 < 0.017 (0.000-0.056) ng/ml NT-Pro-B Natriuret Pep (0-125) pg/ml Serum Total Protein (6.4-8.2) gm/dL Albumin (3.4-5.0) g/dL Amylase (25-115) U/L Lipase (73-393) U/L 02/19/17 02/19/17 Range/Units 23:15 23:15 WBC 7.1 (4.0-10.5) K/mm3 RBC 4.78 (4.1-5.6) M/mm3 Hgb 13.9 (12.5-18.0) gm/dl Hct 40.9 L (42-50) % MCV 85.6 (78-100) fl MCH 29.1 (26-32) pg MCHC 34.0 (32-36) g/dl RDW 13.4 (11.5-14.0) % Plt Count 180 (150-450) K/mm3 MPV 10.7 H (6-9.5) fl Gran % 57.1 (36.0-66.0) % Lymphocytes % 33.9 (24.0-44.0) % Monocytes % 6.4 (0.0-12.0) % Eosinophils % 2.3 (0.00-5.0) % Basophils % 0.3 (0.0-0.4) % Basophils # 0.02 (0-0.4) INR (0.8-3.0) APTT (24.1-36.1) SECONDS Sodium 141 (136-145) mEq/L Potassium 3.6 (3.5-5.1) mEq/L Chloride 103 (98-107) mEq/L Carbon Dioxide 27.7 (21-32) mEq/L Anion Gap 13.9 (5-15) MEQ/L BUN 15 (9-20) mg/dL Creatinine 1.18 (0.55-1.30) mg/dl Estimated GFR > 60 ML/MIN Glucose 139 H (70-110) MG/DL Calcium 8.9 (8.5-10.1) mg/dL Magnesium 1.7 L (1.8-2.4) mg/dL Total Bilirubin 0.40 (0.2-1.0) mg/dL AST 12 L (15-37) U/L ALT 34 (12-78) U/L Alkaline Phosphatase 101 (46-116) U/L Troponin I (0.000-0.056) ng/ml NT-Pro-B Natriuret Pep 157 H (0-125) pg/ml Serum Total Protein 7.1 (6.4-8.2) gm/dL Albumin 4.1 (3.4-5.0) g/dL Amylase 26 (25-115) U/L Lipase 260 (73-393) U/L - Departure Time of Disposition: 02:58 Departure Disposition: Home Clinical Impression: CHEST PAIN, MILD HYPOMAGNESEMIA, COPD, DM, DEPRESSION Condition: Stable Critical Care Time: No Referrals: YUMIKO KAY MD [Primary Care Provider] - Instructions: Chest Pain Additional Instructions: FOLLOW UP WITH PRIVATE DOCTOR TOMORROW.
[2017-02-19 23:35] LABS: BASOPHIL % 0.3 % (0.0-0.4); Eosinophil % 2.3 % (0.00-5.0); Granulocytes % 57.1 % (36.0-66.0); Lymphocytes % 33.9 % (24.0-44.0); Mean Cell Volume 85.6 fl (78-100); Mean Corpuscular Hemoglobin 29.1 pg (26-32); Mean Platelet Volume 10.7 fl (6-9.5); Monocytes % 6.4 % (0.0-12.0); Platelet Count 180 K/mm3 (150-450); Red Blood Count 4.78 M/mm3 (4.1-5.6); Red Cell Distribution Width 13.4 % (11.5-14.0); White Blood Count 7.1 K/mm3 (4.0-10.5)
[2017-02-19] MEDS ORDERED: Phenergan 25 MG INJ ONE (23:42)
[2017-02-19] MEDS ORDERED: Sodium Chloride 0.9% 1000 ML 1,000 ML ONE (23:43)
[2017-02-19 23:45] LABS: INR 1.26 (0.8-3.0)
[2017-02-19] MEDS ORDERED: BABY ASPIRIN 81 MG CHEW ONE (23:47)
[2017-02-19 23:48] LABS: PTT 33.1 SECONDS (24.1-36.1)
[2017-02-20] LABS: ALBUMIN 4.1 g/dL (3.4-5.0); ALKALINE PHOSPHATASE 101 U/L (46-116); ANION GAP 13.9 MEQ/L (5-15); BLOOD UREA NITROGEN 15 mg/dL (9-20); CHLORIDE 103 mEq/L (98-107); Carbon Dioxide 27.7 mEq/L (21-32); Glucose 139 MG/DL (70-110); LIPASE 260 U/L (73-393); MAGNESIUM 1.7 mg/dL (1.8-2.4); Potassium 3.6 mEq/L (3.5-5.1); SGOT/AST 12 U/L (15-37); SGPT/ALT 34 U/L (12-78); SODIUM 141 mEq/L (136-145); Total Protein 7.1 gm/dL (6.4-8.2)
[2017-02-20] MEDS ORDERED: Hydromorphone 1 mg/ml Ampule IV ONE (00:01)
[2017-02-20] MEDS ORDERED: Hydromorphone 1 mg/ml Ampule ONE (00:08)
[2017-02-20] MEDS ORDERED: MAG-OX 400 ONE (02:57)
[2017-02-20 03:06] VITALS: BP 109/62; PULSE 82; O2SAT 96
[2017-02-20] MEDS ORDERED: Nitrostat 0.4 MG (ED) SL ONE (04:54)
--- NOTE | 2017-02-20 09:04 | XRAY ---
Indication: Chest pain. Comparison: September 12, 2016. Portable chest unchanged again demonstrating borderline cardiomegaly without focal infiltrate, consolidation, or large effusion. Bony thorax intact again with sternotomy wires. No new/acute findings.
[2017-02-20] MEDS ORDERED: MAG-OX 400 PO SCH (10:00)
== END 2017-02-20 03:08 | disposition home or self-care (01) ==
LOC: ED 23:02
DX: R07.89 Other chest pain (principal); E83.42 Hypomagnesemia; J44.9 Chronic obstructive pulmonary disease, unspecified; E11.9 Type 2 diabetes mellitus without complications; F32.9 Major depressive disorder, single episode, unspecified; R05 Cough; R11.0 Nausea
CPT/HCPCS: 36000; 36415; 71010; 80053; 82150; 83690; 83735; 83880; 84484; 85025; 85610; 85730; 93005; 93041; 96360; 96361; 96374; 96375; 99285; J1170; J2550; A9270-GY

== ENCOUNTER 2017-03-02 16:41 | Observation (INO) | payer OTHER, SELFPAY ==
[2017-03-02] MEDS ORDERED: PROVENTIL 2.5 MG/3 ML NEB IH ONE ×2 (17:02→17:15)
[2017-03-02 17:28] LABS: BASOPHIL % 0.1 % (0.0-0.4); Granulocytes % 79.3 % (36.0-66.0); Lymphocytes % 15.4 % (24.0-44.0); Mean Cell Volume 85.9 fl (78-100); Mean Corpuscular Hemoglobin 29.2 pg (26-32); Mean Platelet Volume 10.4 fl (6-9.5); Monocytes % 5.2 % (0.0-12.0); Platelet Count 191 K/mm3 (150-450); Red Blood Count 4.96 M/mm3 (4.1-5.6); Red Cell Distribution Width 13.5 % (11.5-14.0); White Blood Count 8.1 K/mm3 (4.0-10.5)
[2017-03-02 17:32] LABS: VBG CARBOXYHEMOGLOBIN 2.1 % T HGB (0.0-6.9); VBG HCO3- 25.2 meq/L (22-28); VBG HEMOGLOBIN 15.2; VBG O2 SATURATION 96.6 (95-100); VBG POTASSIUM 3.8 (3.5-5.1); VBG pH 7.43 (7.32-7.42)
--- NOTE | 2017-03-02 17:37 | ERPHSYRPT ---
- History of Present Illness Time Seen by Provider: 03/02/17 16:59 Source: patient Patient Subjective Stated Complaint: bronchitis for three weeks. also dx with pleurisy. is now getting iv antibiotics at the infusion center for bronchitis. Triage Nursing Assessment: walked to room per self. skin w/d, color normal. frequent dry cough. diminished breath sounds on left posterior. Physician History: CC: cough hx: 46 y/o patient of Dr Hughes and Angela Hernandez. He has hx of COPD. He has hx of heart disease. He has 3 weeks of cough. He is on eliquis. He is on home nebs. He is getting rocephin infusions thru infusion center. He thinks he is on steroids but unsure. He has aching in chest with coughing. Maybe some fever last night. HE feels cough is worse so came to ER. Timing/Duration: week(s) (3) Severity of Dyspnea-Max: moderate Severity of Dyspnea-Current: moderate Allergies/Adverse Reactions: gabapentin [From Neurontin] Allergy (Severe, Verified 03/02/17 16:58) headaches escitalopram oxalate [From Lexapro] Allergy (Verified 03/02/17 16:58) Home Medications: Atorvastatin Calcium [Lipitor 20MG Tablet] 40 mg PO DAILY 03/06/12 [History] Metformin HCl 500 mg [Glucophage 500 MG] 500 mg PO BID 03/06/12 [History] Carvedilol 12.5 mg [Coreg 12.5 mg] 12.5 mg PO BID 10/25/12 [History] Omeprazole 20 MG [Prilosec 20 mg] 20 mg PO BID 10/25/12 [History] Testosterone Cypionate [Depo-Testosterone] 200 mg IM UD 10/25/12 [History] Albuterol 2.5 mg/3 ml Neb [Proventil 2.5 mg/3 ml Neb] 2.5 mg IH Q6H [History] Albuterol Sulfate [Proventil Hfa] 6.7 gm IH Q4H 09/10/15 [History] Armodafinil [Nuvigil] 200 mg PO BID 09/10/15 [History] Fluticasone/Vilanterol [Breo Ellipta 100-25 Mcg INH] 1 each IH DAILY 09/10/15 [ History] Ropinirole HCl [Requip] 0.25 mg PO BID 09/10/15 [History] Nitroglycerin 4.1 gm TL UD 12/28/15 [History] Apixaban [Eliquis] 10 mg PO DAILY 09/12/16 [History] Isosorbide Mononitrate 30 mg [Imdur 30 MG] 30 mg PO DAILY 09/12/16 [History ] Losartan Potassium 50 mg [Cozaar 50 MG] 50 mg PO DAILY 09/12/16 [History] Hx Tetanus, Diphtheria Vaccination/Date Given: No ([place]) Hx Influenza Vaccination/Date Given: Yes Hx Pneumococcal Vaccination/Date Given: Yes (2 years ago) - Review of Systems Constitutional: Fever, Chills, Fatigue, Malaise Eyes: No Symptoms Ears, Nose, & Throat: No Symptoms Respiratory: Cough, Dyspnea Cardiac: Chest Pain (aching with cough) Abdominal/Gastrointestinal: No Abdominal Pain, No Nausea, No Vomiting Skin: No Rash All Other Systems: Reviewed and Negative - Past Medical History Pertinent Past Medical History: Yes Neurological History: No Pertinent History ENT History: No Pertinent History Cardiac History: Congenital Heart Disease Respiratory History: COPD, Pneumonia Endocrine Medical History: Diabetes Type I Musculoskeletal History: No Pertinent History GI Medical History: No Pertinent History History: No Pertinent History Psycho-Social History: Depression Male Reproductive Disorders: No Pertinent History Other Medical History: 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, 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, history of afib, NARCOLEPSY - Past Surgical History Past Surgical History: Yes (heart surgery) Neuro Surgical History: No Pertinent History Cardiac: Cardiac Catheterization Respiratory: No Pertinent History Gastrointestinal: Cholecystectomy, Hernia Repair Genitourinary: No Pertinent History Musculoskeletal: No Pertinent History Male Surgical History: No Pertinent History Other Surgical History: CABG at age 10 for valve replacement and repair of holes in heart, right shoulder, great toenails removed 08/13/15 - Social History Smoking Status: Former smoker How long have you smoked: 15 Exposure to second hand smoke: No Drug Use: none Patient Lives Alone: No - Nursing Vital Signs Nursing Vital Signs: Initial Vital Signs Temperature 98.6 F 03/02/17 16:49 Pulse Rate 75 03/02/17 16:49 Respiratory Rate 20 03/02/17 16:49 Blood Pressure 129/74 03/02/17 16:49 O2 Sat by Pulse Oximetry 98 03/02/17 16:49 Pain Scale Pain Intensity 10 - Physical Exam General Appearance: alert, other (lots of coughing) Eye Exam: PERRL/EOMI Neck Exam: normal inspection, non-tender, supple Respiratory Exam: wheezing (with coughing) Cardiovascular/Chest Exam: regular rate/rhythm Abdominal/Gastrointestinal Exam: soft, No tenderness, No distention Extremity Exam: non-tender, normal range of motion, no calf tenderness, No pedal edema Neurologic Exam: alert, oriented x 3, cooperative, sensation nml, No motor deficits Skin Exam: warm, dry, No rash SpO2 Interpretation: normal SpO2: 98 Oxygen Delivery: Room Air - Course Nursing assessment & vital signs reviewed: Yes EKG Interpreted by Me: RATE (65), Sinus Rhythm, NORMAL AXIS, Right Bundle Branch Block - Radiology Exams cxr X-ray Interpretation: Reviewed by me, Negative, No Pneumonia Ordered Tests: Active Orders 24 hr Category Date Time Status EKG-ER Only STAT Care 03/02/17 17:02 Active Pulse Oximetry (ED) STAT Care 03/02/17 17:02 Active CHEST 2 VIEWS (PA AND LAT) Stat Exams 03/02/17 17:03 Taken BLOOD CULTURE Stat Lab 03/02/17 17:24 Ordered CBC W DIFF Stat Lab 03/02/17 14:20 Completed CMP Stat Lab 03/02/17 14:20 Completed Lactic Acid Stat Lab 03/02/17 14:20 Results VENOUS BLOOD GAS Stat Lab 03/02/17 14:20 Completed Respiratory Nebulizer STAT RT 03/02/17 17:03 Completed Respiratory Nebulizer STAT RT 03/02/17 17:52 Completed Medication Summary Discontinued Medications Generic Name Dose Route Start Last Admin Trade Name Freq PRN Reason Stop Dose Admin Albuterol Sulfate 2.5 mg 03/02/17 17:02 03/02/17 17:19 Proventil 2.5 Mg/3 Ml Neb IH 03/02/17 17:03 2.5 mg STAT ONE Administration Albuterol Sulfate Confirm 03/02/17 17:15 Proventil 2.5 Mg/3 Ml Neb Administered 03/02/17 17:16 Dose 2.5 mg IH .STK-MED ONE Albuterol/Ipratropium 3 ml 03/02/17 17:51 03/02/17 18:06 Duoneb 0.5-3 Mg/3 Ml Neb IH 03/02/17 17:52 3 ml STAT ONE Administration Albuterol/Ipratropium Confirm 03/02/17 17:55 Duoneb 0.5-3 Mg/3 Ml Neb Administered 03/02/17 17:56 Dose 3 ml IH .STK-MED ONE Doxycycline Hyclate 100 mg 03/02/17 18:08 Vibramycin 100 Mg PO 03/02/17 18:09 STAT ONE Methylprednisolone Sodium Succinate 80 mg 03/02/17 18:08 Solu-Medrol 125 Mg IV 03/02/17 18:09 STAT ONE Lab/Rad Data: Laboratory Result Diagrams 03/02/17 14:20 03/02/17 14:20 Laboratory Results 03/02/17 03/02/17 03/02/17 Range/Units 14:20 14:20 14:20 WBC (4.0-10.5) K/mm3 RBC (4.1-5.6) M/mm3 Hgb (12.5-18.0) gm/dl Hct (42-50) % MCV (78-100) fl MCH (26-32) pg MCHC (32-36) g/dl RDW (11.5-14.0) % Plt Count (150-450) K/mm3 MPV (6-9.5) fl Gran % (36.0-66.0) % Lymphocytes % (24.0-44.0) % Monocytes % (0.0-12.0) % Eosinophils % (0.00-5.0) % Basophils % (0.0-0.4) % Basophils # (0-0.4) VBG pH 7.43 H (7.32-7.42) VBG pCO2 at Pat Temp 38 L (42-55) mm/Hg VBG pO2 at Pat Temp 69 H (25-40) mm/Hg VBG HCO3 25.2 (22-28) meq/L VBG O2 Sat (Dick) 96.6 (95-100) VBG Base Excess 1.0 (-2.0-2.0) VBG Hemoglobin 15.2 VBG Carboxyhemoglobin 2.1 (0.0-6.9) % T HGB POC Potassium 3.8 (3.5-5.1) Sodium 138 (136-145) mEq/L Potassium 3.7 (3.5-5.1) mEq/L Chloride 101 (98-107) mEq/L Carbon Dioxide 24.7 (21-32) mEq/L Anion Gap 15.8 H (5-15) MEQ/L BUN 17 (9-20) mg/dL Creatinine 0.91 (0.55-1.30) mg/dl Estimated GFR > 60 ML/MIN Glucose 200 H (70-110) MG/DL Lactic Acid 3.0 H (0.4-2.0) Calcium 9.0 (8.5-10.1) mg/dL Total Bilirubin 0.60 (0.2-1.0) mg/dL AST 12 L (15-37) U/L ALT 38 (12-78) U/L Alkaline Phosphatase 80 (46-116) U/L Serum Total Protein 7.1 (6.4-8.2) gm/dL Albumin 4.2 (3.4-5.0) g/dL 03/02/17 Range/Units 14:20 WBC 8.1 (4.0-10.5) K/mm3 RBC 4.96 (4.1-5.6) M/mm3 Hgb 14.5 (12.5-18.0) gm/dl Hct 42.6 (42-50) % MCV 85.9 (78-100) fl MCH 29.2 (26-32) pg MCHC 34.0 (32-36) g/dl RDW 13.5 (11.5-14.0) % Plt Count 191 (150-450) K/mm3 MPV 10.4 H (6-9.5) fl Gran % 79.3 H (36.0-66.0) % Lymphocytes % 15.4 L (24.0-44.0) % Monocytes % 5.2 (0.0-12.0) % Eosinophils % 0.0 (0.00-5.0) % Basophils % 0.1 (0.0-0.4) % Basophils # 0.01 (0-0.4) VBG pH (7.32-7.42) VBG pCO2 at Pat Temp (42-55) mm/Hg VBG pO2 at Pat Temp (25-40) mm/Hg VBG HCO3 (22-28) meq/L VBG O2 Sat (Dick) (95-100) VBG Base Excess (-2.0-2.0) VBG Hemoglobin VBG Carboxyhemoglobin (0.0-6.9) % T HGB POC Potassium (3.5-5.1) Sodium (136-145) mEq/L Potassium (3.5-5.1) mEq/L Chloride (98-107) mEq/L Carbon Dioxide (21-32) mEq/L Anion Gap (5-15) MEQ/L BUN (9-20) mg/dL Creatinine (0.55-1.30) mg/dl Estimated GFR ML/MIN Glucose (70-110) MG/DL Lactic Acid (0.4-2.0) Calcium (8.5-10.1) mg/dL Total Bilirubin (0.2-1.0) mg/dL AST (15-37) U/L ALT (12-78) U/L Alkaline Phosphatase (46-116) U/L Serum Total Protein (6.4-8.2) gm/dL Albumin (3.4-5.0) g/dL - Progress Progress Note: 03/02/17 18:09 Pt still coughing. Wheezing better with nebs. Family feels he has worsened despite home OP therapy. Called Dr Jos Montague and will place in obs. Will see patient in: hospital (observation) Counseled pt/family regarding: lab results, diagnosis, need for follow-up, rad results - Departure Time of Disposition: 18:10 Departure Disposition: Observation Clinical Impression: COPD exacerbation Condition: Fair Critical Care Time: No Referrals: YUMIKO HUGHES MD [Primary Care Provider] - Instructions: Chronic Obstructive Pulmonary Disease
[2017-03-02 17:48] LABS: ALBUMIN 4.2 g/dL (3.4-5.0); ALKALINE PHOSPHATASE 80 U/L (46-116); ANION GAP 15.8 MEQ/L (5-15); BLOOD UREA NITROGEN 17 mg/dL (9-20); CHLORIDE 101 mEq/L (98-107); Carbon Dioxide 24.7 mEq/L (21-32); Glucose 200 MG/DL (70-110); Potassium 3.7 mEq/L (3.5-5.1); SGOT/AST 12 U/L (15-37); SGPT/ALT 38 U/L (12-78); SODIUM 138 mEq/L (136-145); Total Protein 7.1 gm/dL (6.4-8.2)
[2017-03-02] MEDS ORDERED: DUONEB 0.5-3 MG/3 ml Neb IH ONE ×2 (17:51→17:55)
[2017-03-02] MEDS ORDERED: solu-MEDROL 125 MG IV ONE (18:08)
[2017-03-02] MEDS ORDERED: Vibramycin 100 MG PO ONE (18:08)
[2017-03-02] MEDS ORDERED: TYLENOL 325 MG PO PRN (18:47)
[2017-03-02] MEDS ORDERED: NovoLOG Insulin SQ PRN (18:47)
[2017-03-02] MEDS: Vibramycin 100 MG PO SCH (19:03)
[2017-03-02] MEDS: solu-MEDROL 125 MG IV SCH (19:04)
[2017-03-02] MEDS: DUONEB 0.5-3 MG/3 ml Neb IH SCH ×2 (19:22→23:09)
[2017-03-02 20:34] LABS: Lactic Acid 3.2 (0.4-2.0)
[2017-03-02] MEDS: Requip 0.5 MG PO SCH (22:33)
[2017-03-02] MEDS: Protonix 40MG Tablet PO SCH (22:34)
[2017-03-02] MEDS: Glucophage 500 MG PO SCH (22:34)
[2017-03-02] MEDS: LYRICA 100MG PO SCH (22:34)
[2017-03-02] MEDS: COREG 12.5 MG PO SCH (22:34)
[2017-03-03] MEDS: solu-MEDROL 125 MG IV SCH ×2 (00:44→06:42)
[2017-03-03] MEDS: DUONEB 0.5-3 MG/3 ml Neb IH SCH ×3 (05:44→10:55)
[2017-03-03 07:51] VITALS: BP 119/65
[2017-03-03] MEDS: Glucophage 500 MG PO SCH (07:55)
--- NOTE | 2017-03-03 08:08 | XRAY ---
Indication: Persistent cough 3 weeks. COPD. Comparison: February 19, 2017. PA/lateral chest remains clear. Heart is not enlarged. Vascularity normal. No new/acute findings.
[2017-03-03] MEDS: LYRICA 100MG PO SCH (09:14)
[2017-03-03] MEDS: Protonix 40MG Tablet PO SCH (09:14)
[2017-03-03] MEDS: COREG 12.5 MG PO SCH (09:14)
[2017-03-03] MEDS: Vibramycin 100 MG PO SCH (09:15)
[2017-03-03] MEDS: Requip 0.5 MG PO SCH (09:15)
[2017-03-03] MEDS ORDERED: ROCEPHIN 1 Gm-D5w 50 ml Bag** 1 G/50 ML IVPB IV SCH (10:00)
--- NOTE | 2017-03-03 10:42 | PCM.HP ---
History of Present Illness - Chief Complaint Chief Complaint: Shortness of Breath Date: 03/03/17 History of Present Illness: is a 46 year old male. Who has been having difficulty with cough and congestion and shortness of breath throughout February. He was seen in [facility] then with Dr. Hughes and then with pulmonology Dr. Hernandez who has seen him most recently and has him on daily solumedrol and Rocephin injections. Yesterday he was coughing so much he could not catch his breath and was unable to talk between coughing spells and feeling more short of breath and was brought to ED. He had unremarkable work up but with the failed outpatient treatments was given a dose of doxycycline steroids and nebs and admitted. OVernight he states his cough has significantly improved and is only mild currently and no significant shortness of breath. No chest pain. Eating well. He is able to ambulate without sob. He is asking if he can go home because he is feeling much better now. - Review of Systems Constitutional: No Fever, No Chills Eyes: No Symptoms Ears, Nose, & Throat: No Symptoms Respiratory: Cough, Short Of Breath Cardiac: No Chest Pain, No Edema, No Syncope Abdominal/Gastrointestinal: No Abdominal Pain, No Nausea, No Vomiting, No Diarrhea Genitourinary Symptoms: No Dysuria Musculoskeletal: No Back Pain, No Neck Pain Skin: No Rash Neurological: No Dizziness, No Focal Weakness, No Sensory Changes Psychological: No Symptoms Endocrine: No Symptoms Hematologic/Lymphatic: No Symptoms Immunological/Allergic: No Symptoms Medications & Allergies Home Medications: Home Medication List Atorvastatin Calcium [Lipitor 20MG Tablet] 40 mg PO DAILY 03/06/12 [History Confirmed 03/02/17] Metformin HCl 500 mg [Glucophage 500 MG] 500 mg PO BID 03/06/12 [History Confirmed 03/02/17] Carvedilol 12.5 mg [Coreg 12.5 mg] 12.5 mg PO BID 10/25/12 [History Confirmed 03/02/17] Omeprazole 20 MG [Prilosec 20 mg] 20 mg PO BID 10/25/12 [History Confirmed 03/02] Testosterone Cypionate [Depo-Testosterone] 200 mg IM UD 10/25/12 [History Confirmed 03/02/17] Pregabalin 50 mg [Lyrica 50MG] 100 mg PO TID #90 03/24/14 [Rx Confirmed ] Albuterol 2.5 mg/3 ml Neb [Proventil 2.5 mg/3 ml Neb] 2.5 mg IH Q6H [History Confirmed 03/02/17] Albuterol Sulfate [Proventil Hfa] 6.7 gm IH Q4H 09/10/15 [History Confirmed ] Armodafinil [Nuvigil] 200 mg PO BID 09/10/15 [History Confirmed 03/02/17] Fluticasone/Vilanterol [Breo Ellipta 100-25 Mcg INH] 1 each IH DAILY 09/10/15 [ History Confirmed 03/02/17] Ropinirole HCl [Requip] 0.25 mg PO BID 09/10/15 [History Confirmed 03/02/17] Nitroglycerin 4.1 gm TL UD 12/28/15 [History Confirmed 03/02/17] Isosorbide Mononitrate 30 mg [Imdur 30 MG] 30 mg PO DAILY 09/12/16 [ History Confirmed 03/02/17] Losartan Potassium 50 mg [Cozaar 50 MG] 50 mg PO DAILY 09/12/16 [History Confirmed 03/02/17] Clotrimazole Cream 30 gm [Lotrimin Cream 30 gm] 30 gm TP BID #1 cream [Rx Confirmed 03/02/17] Apixaban [Eliquis] 5 mg PO BID #0 03/03/17 [Rx Confirmed 03/02/17] Ceftriaxone 1 GM/50 ML PREMIX* [ROCEPHIN 1 Gm-D5w 50 ml Bag] 1 g IV Q24H10 ivpb 03/03/17 [Rx] Allergies/Adverse Reactions: Allergies Allergy/AdvReac Type Severity Reaction Status Date / Time gabapentin [From Neurontin] Allergy Severe headaches Verified 03/02/17 16:58 escitalopram oxalate Allergy Verified 03/02/17 16:58 [From Lexapro] - Past Medical History Past Medical History: Yes Neurological History: No Pertinent History ENT History: No Pertinent History Cardiac History: Congenital Heart Disease Respiratory History: COPD, Pneumonia Endocrine Medical History: Diabetes Type II Musculoskelatal History: No Pertinent History GI Medical History: No Pertinent History History: No Pertinent History Pyscho-Social History: Depression Male Reproductive Disorders: No Pertinent History Comment: 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, 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, history of afib, NARCOLEPSY - Past Surgical History Past Surgical History: Yes (heart surgery) Neuro Surgical History: No Pertinent History Cardiac History: Cardiac Catheterization Respiratory Surgery: No Pertinent History GI Surgical History: Cholecystectomy, Hernia Repair Genitourinary Surgical Hx: No Pertinent History Musculskeletal Surgical Hx: No Pertinent History Male Surgical History: No Pertinent History Other Surgical History: open heart at age 10 for valve replacement and repair of holes in heart, right shoulder, great toenails removed 08/13/15 - Social History Smoking Status: Former smoker How long have you smoked: 15 Exposure to second hand smoke: No Alcohol: None Drug Use: none - Physical Exam Vital Signs: Vital Signs - 24 hr Temp Pulse Resp BP Pulse Ox 03/03/17 08:00 16 03/03/17 07:50 97.6 F 68 16 119/65 96 03/03/17 07:25 74 18 98 03/03/17 04:00 97.8 F 74 18 125/70 92 L 03/03/17 00:00 18 03/02/17 23:33 97.4 F 63 17 120/67 98 03/02/17 20:46 98.4 F 69 19 135/79 94 L 03/02/17 20:00 19 03/02/17 18:47 66 18 97 03/02/17 18:10 98 03/02/17 18:06 78 18 98 03/02/17 17:20 69 18 98 03/02/17 17:06 98 03/02/17 16:49 98.6 F 75 20 129/74 98 General Appearance: no apparent distress, alert Neurologic Exam: alert, oriented x 3, cooperative, normal mood/affect, nml cerebellar function, nml station & gait, sensation nml, No motor deficits Eye Exam: PERRL/EOMI, eyes nml inspection Ears, Nose, Throat Exam: normal ENT inspection, TMs normal, pharynx normal, moist mucous membranes Neck Exam: normal inspection, non-tender, supple, full range of motion Respiratory Exam: normal breath sounds, lungs clear, No respiratory distress Cardiovascular Exam: normal peripheral pulses, murmur Gastrointestinal/Abdomen Exam: soft, normal bowel sounds, No tenderness, No mass Back Exam: normal inspection, normal range of motion, No CVA tenderness, No vertebral tenderness Extremity Exam: normal inspection, normal range of motion, pelvis stable Skin Exam: normal color, warm, dry, No rash Lymphatic Exam: No adenopathy Results - Labs Lab/Micro Results: Accuchecks Date 03/03/17 Date 03/02/17 Time 07:30 Time 21:00 Accucheck Value: 217 Accucheck Value: 133 Lab Results-Last 24 Hours 03/02/17 Range/Units 20:25 Lactic Acid 3.2 H (0.4-2.0) Accuchecks Date 03/03/17 Date 03/02/17 Time 07:30 Time 21:00 Accucheck Value: 217 Accucheck Value: 133 - Other Procedures and Tests Respiratory Therapy 03/02/17 23:00 Respiratory Nebulizer Q4H Assessment/Plan (1) COPD exacerbation Status: Acute Assessment & Plan: much improved today lungs sound great today will continue with 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 Code(s): J44.1 - CHRONIC OBSTRUCTIVE PULMONARY DISEASE W (ACUTE) EXACERBATION (2) Congenital heart anomaly Status: Chronic (3) Paroxysmal atrial fibrillation Status: Acute Code(s): I48.0 - PAROXYSMAL ATRIAL FIBRILLATION
--- NOTE | 2017-03-03 10:45 | PCM.DCORD ---
- Discharge Discharge Date: 03/03/17 Disposition: Home, Self-Care Condition: Fair Prescriptions: New Ceftriaxone 1 GM/50 ML PREMIX* [ROCEPHIN 1 Gm-D5w 50 ml Bag] 1 g IV Q24H10 ivpb Continue Atorvastatin Calcium [Lipitor 20MG Tablet] 40 mg PO DAILY Metformin HCl 500 mg [Glucophage 500 MG] 500 mg PO BID Carvedilol 12.5 mg [Coreg 12.5 mg] 12.5 mg PO BID Testosterone Cypionate [Depo-Testosterone] 200 mg IM UD Omeprazole 20 MG [Prilosec 20 mg] 20 mg PO BID Pregabalin 50 mg [Lyrica 50MG] 100 mg PO TID #90 Fluticasone/Vilanterol [Breo Ellipta 100-25 Mcg INH] 1 each IH DAILY Albuterol Sulfate [Proventil Hfa] 6.7 gm IH Q4H Armodafinil [Nuvigil] 200 mg PO BID Ropinirole HCl [Requip] 0.25 mg PO BID Albuterol 2.5 mg/3 ml Neb [Proventil 2.5 mg/3 ml Neb] 2.5 mg IH Q6H Nitroglycerin 4.1 gm TL UD Losartan Potassium 50 mg [Cozaar 50 MG] 50 mg PO DAILY Isosorbide Mononitrate 30 mg [Imdur 30 MG] 30 mg PO DAILY Clotrimazole Cream 30 gm [Lotrimin Cream 30 gm] 30 gm TP BID #1 cream Changed Apixaban [Eliquis] 5 mg PO BID #0 Instructions: Chronic Obstructive Pulmonary Disease Additional Instructions: continue outpatient infusions per Dr. Hernandez orders Follow up with: YUMIKO KAY MD [Primary Care Provider] - 03/14/17 11:15 am
[2017-03-03 11:22] VITALS: PULSE 78; O2SAT 98
[2017-03-03] MEDS ORDERED: Ventolin Hfa MDI IH SCH (11:45)
[2017-03-03] MEDS ORDERED: NITROGLYCERIN 4.1 GM TL SCH (11:45)
[2017-03-03] MEDS ORDERED: Imdur 30 MG PO SCH (12:00)
[2017-03-03] MEDS ORDERED: Cozaar 50 MG PO SCH (12:00)
[2017-03-03] MEDS ORDERED: PROVENTIL 2.5 MG/3 ML NEB IH SCH (12:00)
[2017-03-03] MEDS ORDERED: ZOCOR 20MG PO SCH (12:00)
[2017-03-03] MEDS ORDERED: LOTRIMIN CREAM 30 GM TP SCH (22:00)
[2017-03-03] MEDS ORDERED: ARMODAFINIL 200 MG PO SCH (22:00)
[2017-03-04] MEDS ORDERED: NON-FORMULARY ITEM (Fluticasone/Vilanterol [Breo Ellipta 100-25 Mcg Inh] 1 EACH) IH SCH (10:00)
[2017-03-04] MEDS ORDERED: NON-FORMULARY ITEM (Atorvastatin Calcium 40 MG) PO SCH (10:00)
== END 2017-03-03 11:27 | disposition home or self-care (01) ==
LOC: ED 16:41 → MED SURG 18:44
PROVIDERS: ADMIT Family Medicine; ATTEND Family Medicine
DX: J44.1 Chronic obstructive pulmonary disease with (acute) exacerbation (principal); Q24.9 Congenital malformation of heart, unspecified; I48.0 Paroxysmal atrial fibrillation
CPT/HCPCS: 36415; 71020; 80053; 82805; 82962; 83605; 85025; 87040; 94640; 94760; 99285; G0378; J0696; J2930; A9270-GY

== ENCOUNTER 2017-12-24 14:35 | Emergency (ER) | payer OTHER ==
--- NOTE | 2017-12-24 14:45 | ERPHSYRPT ---
- History of Present Illness Time Seen by Provider: 12/24/17 14:44 Source: patient Physician History: 47 Y/O N[place] WHITE MALE WITH H/O THROAT CANCER AND ATRIAL FIBRILLATION ON ELIQUIS PRESENTS WITH SOA AND PALPITATION THAT BEGAN TODAY. PTS PCP IS DR. KAY. PT TOLD TO GO TO ER FOR EVALUATION. PT DENIES CP. PT ALSO STATES HE HAS BURNING IN HIS FEET. Timing/Duration: today Activities at Onset: none Severity of Dyspnea-Max: moderate Severity of Dyspnea-Current: mild Possible Cause: occasional episodes Modifying Factors: Improves With: exertion Associated Symptoms: No cough, No chest pain/discomfort, No wheezing, No weakness, No ankle swelling, No hemoptysis, No heaviness, No painful breathing, No productive cough, No tightness International travel in last 2 weeks: No Allergies/Adverse Reactions: gabapentin [From Neurontin] Allergy (Severe, Verified 03/02/17 16:58) headaches escitalopram oxalate [From Lexapro] Allergy (Verified 03/02/17 16:58) Home Medications: Atorvastatin Calcium [Lipitor 20MG Tablet] 40 mg PO DAILY 03/06/12 [History] Metformin HCl 500 mg [Glucophage 500 MG] 500 mg PO BID 03/06/12 [History] Carvedilol 12.5 mg [Coreg 12.5 mg] 12.5 mg PO BID 10/25/12 [History] Omeprazole 20 MG [Prilosec 20 mg] 20 mg PO BID 10/25/12 [History] Testosterone Cypionate [Depo-Testosterone] 200 mg IM UD 10/25/12 [History] Albuterol 2.5 mg/3 ml Neb [Proventil 2.5 mg/3 ml Neb] 2.5 mg IH Q6H [History] Albuterol Sulfate [Proventil Hfa] 6.7 gm IH Q4H 09/10/15 [History] Armodafinil [Nuvigil] 200 mg PO BID 09/10/15 [History] Fluticasone/Vilanterol [Breo Ellipta 100-25 Mcg INH] 1 each IH DAILY 09/10/15 [ History] Ropinirole HCl [Requip] 0.25 mg PO BID 09/10/15 [History] Nitroglycerin 4.1 gm TL UD 12/28/15 [History] Isosorbide Mononitrate 30 mg [Imdur 30 MG] 30 mg PO DAILY 09/12/16 [History ] Losartan Potassium 50 mg [Cozaar 50 MG] 50 mg PO DAILY 09/12/16 [History] Hx Tetanus, Diphtheria Vaccination/Date Given: No ([facility]) Hx Influenza Vaccination/Date Given: Yes Hx Pneumococcal Vaccination/Date Given: Yes (2 years ago) - Review of Systems Constitutional: No Symptoms, No Fever, No Chills, No Weakness Eyes: No Symptoms Ears, Nose, & Throat: No Symptoms, No Epistaxis Respiratory: No Symptoms, No Cough, No Stridor, No Wheezing Cardiac: Palpitations, No Chest Pain Abdominal/Gastrointestinal: No Symptoms, No Abdominal Pain, No Nausea, No Vomiting, No Diarrhea Genitourinary Symptoms: No Symptoms Musculoskeletal: No Symptoms Skin: No Symptoms Neurological: No Symptoms Psychological: No Symptoms Endocrine: No Symptoms Hematologic/Lymphatic: No Symptoms Immunological/Allergic: No Symptoms All Other Systems: Reviewed and Negative - Past Medical History Pertinent Past Medical History: Yes Neurological History: No Pertinent History ENT History: No Pertinent History Cardiac History: Congenital Heart Disease Respiratory History: COPD, Pneumonia Endocrine Medical History: Diabetes Type II Musculoskeletal History: No Pertinent History GI Medical History: No Pertinent History History: No Pertinent History Psycho-Social History: Depression Male Reproductive Disorders: No Pertinent History Other Medical History: 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, 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, history of afib, NARCOLEPSY - Past Surgical History Past Surgical History: Yes (heart surgery) Neuro Surgical History: No Pertinent History Cardiac: Cardiac Catheterization Respiratory: No Pertinent History Gastrointestinal: Cholecystectomy, Hernia Repair Genitourinary: No Pertinent History Musculoskeletal: No Pertinent History Male Surgical History: No Pertinent History Other Surgical History: open heart at age 10 for valve replacement and repair of holes in heart, right shoulder, great toenails removed 08/13/15 - Social History Smoking Status: Former smoker How long have you smoked: 15 Exposure to second hand smoke: No Drug Use: none Patient Lives Alone: No - Nursing Vital Signs Nursing Vital Signs: Initial Vital Signs Temperature 99.3 F 12/24/17 14:40 Pulse Rate 67 12/24/17 14:40 Respiratory Rate 18 12/24/17 14:40 Blood Pressure 115/69 08/13/18 14:40 O2 Sat by Pulse Oximetry 97 12/24/17 14:40 Pain Scale Pain Intensity 0 - Physical Exam General Appearance: no apparent distress, alert, anxiety Eye Exam: PERRL/EOMI, eyes nml inspection Ears, Nose, Throat Exam: hearing grossly normal Neck Exam: normal inspection, non-tender, supple, full range of motion Respiratory Exam: normal breath sounds, lungs clear, airway intact, No chest tenderness, No respiratory distress, No diminished breath sounds, No accessory muscle use, No rhonchi, No wheezing, No stridor Cardiovascular/Chest Exam: normal heart sounds, regular rate/rhythm Abdominal/Gastrointestinal Exam: soft, normal bowel sounds, No tenderness, No distention, No guarding, No rebound Rectal Exam: not done Extremity Exam: non-tender, normal range of motion, normal inspection, normal capillary refill Neurologic Exam: alert, oriented x 3, cooperative, injection operator II-XII nml as tested, normal mood/affect, nml cerebellar function, nml station & gait, sensation nml Skin Exam: normal color, warm, dry Lymphatic Exam: No adenopathy SpO2 Interpretation: normal Oxygen Delivery: Room Air - Course Nursing assessment & vital signs reviewed: Yes EKG Interpreted by Me: RATE (66), NORMAL AXIS, Right Bundle Branch Block, Non- specific ST Changes (NO CHANGE FROM EKG DATED 03/02/17), Other (PROLONGED QRS) Ordered Tests: Active Orders 24 hr Category Date Time Status Slitter Scorer Cut Off Operator STAT Care 12/24/17 14:47 Active EKG-ER Only STAT Care 12/24/17 14:45 Active IV Insertion STAT Care 12/24/17 14:45 Active CHEST 1 VIEW (PORTABLE) Stat Exams 12/24/17 14:47 Completed CBC W DIFF Stat Lab 12/24/17 15:35 Completed CMP Stat Lab 12/24/17 15:35 Completed D-DIMER QUANTITATION Stat Lab 12/24/17 12:53 Completed NT PRO BNP Stat Lab 12/24/17 15:35 Completed PROTIME WITH INR Stat Lab 12/24/17 12:53 Completed TROPONIN Q3H Lab 12/24/17 12:53 Completed TROPONIN Q3H Lab 12/24/17 18:00 Ordered TROPONIN Q3H Lab 12/24/17 21:00 Ordered TROPONIN Q3H Lab 12/25/17 00:00 Ordered TROPONIN Q3H Lab 12/25/17 03:00 Ordered Lab/Rad Data: Laboratory Result Diagrams 12/24/17 15:35 12/24/17 15:35 Laboratory Results 12/24/17 12/24/17 12/24/17 Range/Units 15:35 15:35 12:53 WBC 5.9 (4.0-10.5) K/mm3 RBC 4.75 (4.1-5.6) M/mm3 Hgb 14.3 (12.5-18.0) gm/dl Hct 41.3 L (42-50) % MCV 86.9 (78-100) fl MCH 30.1 (26-32) pg MCHC 34.6 (32-36) g/dl RDW 13.7 (11.5-14.0) % Plt Count 168 (150-450) K/mm3 MPV 10.7 H (6-9.5) fl Gran % 63.0 (36.0-66.0) % Eos # (Auto) 0.11 (0-0.5) Absolute Lymphs (auto) 1.60 (1.0-4.6) Absolute Monos (auto) 0.47 (0.0-1.3) Lymphocytes % 27.0 (24.0-44.0) % Monocytes % 7.9 (0.0-12.0) % Eosinophils % 1.9 (0.00-5.0) % Basophils % 0.2 (0.0-0.4) % Absolute Granulocytes 3.74 (1.4-6.9) Basophils # 0.01 (0-0.4) PT (8.83-12.87) SECONDS INR (0.8-3.0) D-Dimer (215-500) ng/mL Sodium 141 (137-145) mmol/L Potassium 4.0 (3.5-5.1) mmol/L Chloride 104 (98-107) mmol/L Carbon Dioxide 25 (22-30) mmol/L Anion Gap 16.7 H (5-15) MEQ/L BUN 17 (9-20) mg/dL Creatinine 0.74 (0.66-1.25) mg/dL Estimated GFR > 60.0 ML/MIN Glucose 171 H (74-106) mg/dL Calcium 10.1 (8.4-10.2) mg/dL Total Bilirubin 0.60 (0.2-1.3) mg/dL AST 24 (17-59) U/L ALT 37 (0-50) U/L Alkaline Phosphatase 64 (38-126) U/L Troponin I < 0.012 (0.000-0.034) ng/mL NT-Pro-B Natriuret Pep 96.7 (0-450) pg/mL Serum Total Protein 7.6 (6.3-8.2) g/dL Albumin 4.9 (3.5-5.0) g/dL 12/24/17 Range/Units 12:53 WBC (4.0-10.5) K/mm3 RBC (4.1-5.6) M/mm3 Hgb (12.5-18.0) gm/dl Hct (42-50) % MCV (78-100) fl MCH (26-32) pg MCHC (32-36) g/dl RDW (11.5-14.0) % Plt Count (150-450) K/mm3 MPV (6-9.5) fl Gran % (36.0-66.0) % Eos # (Auto) (0-0.5) Absolute Lymphs (auto) (1.0-4.6) Absolute Monos (auto) (0.0-1.3) Lymphocytes % (24.0-44.0) % Monocytes % (0.0-12.0) % Eosinophils % (0.00-5.0) % Basophils % (0.0-0.4) % Absolute Granulocytes (1.4-6.9) Basophils # (0-0.4) PT 15.1 H (8.83-12.87) SECONDS INR 1.29 (0.8-3.0) D-Dimer < 215 L (215-500) ng/mL Sodium (137-145) mmol/L Potassium (3.5-5.1) mmol/L Chloride (98-107) mmol/L Carbon Dioxide (22-30) mmol/L Anion Gap (5-15) MEQ/L BUN (9-20) mg/dL Creatinine (0.66-1.25) mg/dL Estimated GFR ML/MIN Glucose (74-106) mg/dL Calcium (8.4-10.2) mg/dL Total Bilirubin (0.2-1.3) mg/dL AST (17-59) U/L ALT (0-50) U/L Alkaline Phosphatase (38-126) U/L Troponin I (0.000-0.034) ng/mL NT-Pro-B Natriuret Pep (0-450) pg/mL Serum Total Protein (6.3-8.2) g/dL Albumin (3.5-5.0) g/dL - Progress Progress: improved, re-examined Air Movement: good Progress Note: 12/24/17 17:10 PT STATES HE IS FEELING WELL. HE DOES NOT WANT ME TO CONTACT HIS PCP OR CELLULOSE INSULATION HELPER. HE JUST WANTED TO BE SURE HE WAS NOT IN AFIB WITH RVR. Blood Culture(s) Obtained: No Antibiotics given: No Counseled pt/family regarding: lab results, diagnosis, need for follow-up, rad results - Departure Time of Disposition: 17:04 Departure Disposition: Home Clinical Impression: Dyspnea, Palpitation Condition: Stable Critical Care Time: No Referrals: YUMIKO KAY MD [Primary Care Provider] - Additional Instructions: TAKE YOUR MEDICATIONS PRESCRIBED. FOLLOW UP WITH YOUR CELLULOSE INSULATION HELPER TOMORROW FOR FURTHER MANAGEMENT
--- NOTE | 2017-12-24 15:06 | XRAY ---
Indication: Short of breath. Palpitations. Comparison: March 19, 2017. Portable chest again demonstrates normal heart and lungs. Bony thorax intact again with sternotomy wires. No new/acute findings.
[2017-12-24 16:01] LABS: ALBUMIN 4.9 g/dL (3.5-5.0); ALKALINE PHOSPHATASE 64 U/L (38-126); ANION GAP 16.7 MEQ/L (5-15); BASOPHIL % 0.2 % (0.0-0.4); BLOOD UREA NITROGEN 17 mg/dL (9-20); Basophil (Absolute #) 0.01 (0-0.4); CHLORIDE 104 mmol/L (98-107); Calcium 10.1 mg/dL (8.4-10.2); Carbon Dioxide 25 mmol/L (22-30); Creatinine 1 0.74 mg/dL (0.66-1.25); Eosinophil % 1.9 % (0.00-5.0); Eosinophil (Absolute #) 0.11 (0-0.5); Glucose 171 mg/dL (74-106); Granulocyte Absolute (ANC) 3.74 (1.4-6.9); Hematocrit 41.3 % (42-50); Hemoglobin 14.3 gm/dl (12.5-18.0); Mean Cell Volume 86.9 fl (78-100); Mean Corpuscular Hemoglobin 30.1 pg (26-32); Mean Corpuscular Hgb Concent. 34.6 g/dl (32-36); Mean Platelet Volume 10.7 fl (6-9.5); Monocyte (Absolute #) 0.47 (0.0-1.3); Monocytes % 7.9 % (0.0-12.0); NT PRO BNP 96.7 pg/mL (0-450); Platelet Count 168 K/mm3 (150-450); Red Blood Count 4.75 M/mm3 (4.1-5.6); Red Cell Distribution Width 13.7 % (11.5-14.0); SGOT/AST 24 U/L (17-59); SGPT/ALT 37 U/L (0-50); SODIUM 141 mmol/L (137-145); Total Protein 7.6 g/dL (6.3-8.2); White Blood Count 5.9 K/mm3 (4.0-10.5)
[2017-12-24 16:03] LABS: INR 1.29 (0.8-3.0)
[2017-12-24 16:16] LABS: D-DIMER QUANTITATION < 215 ng/mL (215-500)
[2017-12-24 16:49] VITALS: O2SAT 97
[2017-12-24 17:05] VITALS: BP 130/82
[2017-12-24 17:40] VITALS: PULSE 78
== END 2017-12-24 17:38 | disposition home or self-care (01) ==
LOC: ED 14:35
DX: R06.00 Dyspnea, unspecified (principal); R00.2 Palpitations; I48.91 Unspecified atrial fibrillation; E11.9 Type 2 diabetes mellitus without complications; Z79.01 Long term (current) use of anticoagulants; Z79.84 Long term (current) use of oral hypoglycemic drugs; Z79.899 Other long term (current) drug therapy
CPT/HCPCS: 36000; 36415; 71045; 80053; 83880; 84484; 85025; 85379; 85610; 93005; 93041; 99284

== ENCOUNTER 2019-09-20 18:02 | Emergency (ER) | payer MEDICAID, OTHER ==
[2019-09-20] MEDS ORDERED: Sodium Chloride 0.9% 1000 ML 1,000 ML IV SCH (18:15)
[2019-09-20] MEDS ORDERED: Sodium Chloride 0.9% 1000 ML 1,000 ML ONE (18:26)
--- NOTE | 2019-09-20 18:33 | ERPHSYRPT ---
<TALISHA,YUMIKO - Last Filed: 09/20/19 18:51> - History of Present Illness Time Seen by Provider: 09/20/19 18:30 Historian: patient Exam Limitations: no limitations Patient Subjective Stated Complaint: None Triage Nursing Assessment: Pt presents alert et oriented reporing right scapular pain onset 09/19/19. Reports pain radiates to right elbow with new onset parasthesias prior to arrival. Denies headache/dizziness, visual/auditory disturbances, chest pain/shortness of breath. Pupils 3mm reactive. Neck supple without JVD. Symmetrical chest expansion. Lungs clear with adequate airflow. Abdomen soft non-tender without palpable organomegaly. Bowel sound presents throughout all quadrants. Oral mucosa pink/moist with equal radial pulses bilateral No noted dependent edema. Denies trauma to the extremity in question. Physician History: 49-year-old male with significant past medical history of hypertension diabetes coronary artery disease came to the emergency room with substernal and right- sided shoulder pain with tingling and numbness in the right upper arm. Patient denies any nausea vomiting diaphoresis. Patient has this pain going on for last 2 to 3 days off and on. Patient denies any loss of consciousness. Timing/Duration: day(s) (2-3 days) Activities at Onset: none Location: substernal, shoulder (right side) Severity of Pain-Max: mild Severity of Pain-Current: mild Modifying Factors: Improves With: nothing Associated Symptoms: denies symptoms Prior Chest Pain/Cardiac Workup: no prior chest pain Nitro Today/Relief: no nitro taken today Aspirin Treatment Today: 81 mg x 1 Allergies/Adverse Reactions: gabapentin [From Neurontin] Allergy (Severe, Verified 09/20/19 18:05) headaches escitalopram oxalate [From Lexapro] Allergy (Verified 09/20/19 18:05) Home Medications: Atorvastatin Calcium [Lipitor 20MG Tablet] 40 mg PO DAILY 03/06/12 [History] Metformin HCl 500 mg [Glucophage 500 MG] 500 mg PO BID 03/06/12 [History] Carvedilol 12.5 mg [Coreg 12.5 mg] 12.5 mg PO BID 10/25/12 [History] Omeprazole 20 MG [Prilosec 20 mg] 20 mg PO BID 10/25/12 [History] Testosterone Cypionate [Depo-Testosterone] 200 mg IM UD 10/25/12 [History] Albuterol 2.5 mg/3 ml Neb [Proventil 2.5 mg/3 ml Neb] 2.5 mg IH Q6H [History] Albuterol Sulfate [Proventil Hfa] 6.7 gm IH Q4H 09/10/15 [History] Armodafinil [Nuvigil] 200 mg PO BID 09/10/15 [History] Fluticasone/Vilanterol [Breo Ellipta 100-25 Mcg INH] 1 each IH DAILY 09/10/15 [ History] Ropinirole HCl [Requip] 0.25 mg PO BID 09/10/15 [History] Nitroglycerin 4.1 gm TL UD 12/28/15 [History] Isosorbide Mononitrate 30 mg [Imdur 30 MG] 30 mg PO DAILY 09/12/16 [History ] Losartan Potassium 50 mg [Cozaar 50 MG] 50 mg PO DAILY 09/12/16 [History] Hx Tetanus, Diphtheria Vaccination/Date Given: Yes Hx Influenza Vaccination/Date Given: Yes Hx Pneumococcal Vaccination/Date Given: Yes (2 years ago) Immunizations Up to Date: Yes Travel Risk - International Travel Have you traveled outside of the country in past 3 weeks: No Have you or anyone close to you been diagnosed with or: No Do your reside in a community with a known COVID-19 case?: Yes If Yes where:: [facility] - Coronavirus Screening Has patient experienced Coronavirus symptoms: No - Review of Systems Constitutional: No Fever, No Chills Eyes: No Symptoms Ears, Nose, & Throat: No Symptoms Respiratory: No Cough, No Dyspnea Cardiac: No Chest Pain, No Edema, No Syncope Abdominal/Gastrointestinal: No Abdominal Pain, No Nausea, No Vomiting, No Diarrhea Genitourinary Symptoms: No Dysuria Musculoskeletal: No Back Pain, No Neck Pain Skin: No Rash Neurological: No Dizziness, No Focal Weakness, No Sensory Changes Psychological: No Symptoms Endocrine: No Symptoms All Other Systems: Reviewed and Negative - Past Medical History Pertinent Past Medical History: Yes Neurological History: Peripheral Neuropathy, TIA ENT History: No Pertinent History Cardiac History: High Cholesterol, Hypertension, Myocardial Infarction (VT) Respiratory History: COPD Endocrine Medical History: Diabetes Type II Musculoskeletal History: Arthritis GI Medical History: No Pertinent History History: No Pertinent History Psycho-Social History: Depression Male Reproductive Disorders: No Pertinent History Other Medical History: 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, 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, history of afib, NARCOLEPSY - Past Surgical History Past Surgical History: Yes (heart surgery) Neuro Surgical History: No Pertinent History Cardiac: Cardiac Catheterization Respiratory: No Pertinent History Gastrointestinal: Cholecystectomy, Hernia Repair Genitourinary: No Pertinent History Musculoskeletal: No Pertinent History Male Surgical History: No Pertinent History Other Surgical History: open heart at age 10 for valve replacement and repair of holes in heart, right shoulder, great toenails removed 08/13/15 - Social History Smoking Status: Former smoker How long have you smoked: 15 Exposure to second hand smoke: No Drug Use: none Patient Lives Alone: No - Nursing Vital Signs Nursing Vital Signs: Initial Vital Signs Temperature 97.8 F 09/20/19 18:02 Pulse Rate 84 09/20/19 18:02 Respiratory Rate 18 09/20/19 18:02 Blood Pressure 186/115 09/20/19 18:02 O2 Sat by Pulse Oximetry 99 09/20/19 18:02 Pain Scale Pain Intensity 8 - Physical Exam General Appearance: no apparent distress, alert Eye Exam: PERRL/EOMI, eyes nml inspection Ears, Nose, Throat Exam: normal ENT inspection, moist mucous membranes Neck Exam: normal inspection, non-tender, supple, full range of motion Respiratory Exam: normal breath sounds, lungs clear, No respiratory distress Cardiovascular Exam: regular rate/rhythm, normal heart sounds Gastrointestinal/Abdomen Exam: soft, No tenderness, No mass Back Exam: normal inspection, No CVA tenderness, No vertebral tenderness Extremity Exam: normal inspection, normal range of motion Neurologic Exam: alert, oriented x 3, cooperative, normal mood/affect, sensation nml, No motor deficits Skin Exam: normal color, warm, dry SpO2: 99 - Radiology Exams Chest X-ray Interpretation: Reviewed by me Ordered Tests: Active Orders 24 hr Category Date Time Status Electronic System Engineer STAT Care 09/20/19 18:16 Completed EKG-ER Only STAT Care 09/20/19 18:14 Completed IV Insertion STAT Care 09/20/19 18:29 Active Pulse Oximetry (ED) STAT Care 09/20/19 18:30 Active CHEST 1 VIEW (PORTABLE) Stat Exams 09/20/19 18:16 Taken CBC W DIFF Stat Lab 09/20/19 18:30 Completed CMP Stat Lab 09/20/19 18:30 Completed NT PRO BNP Stat Lab 09/20/19 18:30 Completed TROPONIN Q3H Lab 09/20/19 18:30 Completed Medication Summary Discontinued Medications Generic Name Dose Route Start Last Admin Trade Name Lio PRN Reason Stop Dose Admin Acetaminophen 975 mg 09/20/19 19:12 09/20/19 19:16 Tylenol 325 Mg PO 09/20/19 19:13 975 mg STAT ONE Administration Acetaminophen Confirm 09/20/19 19:15 Tylenol 325 Mg Administered 09/20/19 19:16 Dose 975 mg .ROUTE .STK-MED ONE Sodium Chloride 1,000 mls @ 50 mls/hr 09/20/19 18:15 09/20/19 19:42 Sodium Chloride 0.9% 1000 Ml IV 10/20/19 18:14 50 mls/hr .Q20H ERNESTINA Infusion Sodium Chloride Confirm 09/20/19 18:26 Sodium Chloride 0.9% 1000 Ml Administered 09/20/19 18:27 Dose 1,000 mls @ ud .ROUTE .STK-MED ONE Lab/Rad Data: Laboratory Result Diagrams 09/20/19 18:30 09/20/19 18:30 Laboratory Results 09/20/19 09/20/19 09/20/19 Range/Units 18:30 18:30 18:30 WBC 7.4 (4.0-10.5) K/mm3 RBC 5.85 H (4.1-5.6) M/mm3 Hgb 17.4 (12.5-18.0) gm/dl Hct 50.7 H (42-50) % MCV 86.7 (78-100) fl MCH 29.7 (26-32) pg MCHC 34.3 (32-36) g/dl RDW 13.9 (11.5-14.0) % Plt Count 213 (150-450) K/mm3 MPV 10.3 (7.5-11.0) fl Gran % 69.3 H (36.0-66.0) % Eos # (Auto) 0.08 (0-0.5) Absolute Lymphs (auto) 1.89 (1.0-4.6) Absolute Monos (auto) 0.28 (0.0-1.3) Lymphocytes % 25.5 (24.0-44.0) % Monocytes % 3.8 (0.0-12.0) % Eosinophils % 1.1 (0.00-5.0) % Basophils % 0.3 (0.0-0.4) % Absolute Granulocytes 5.15 (1.4-6.9) Basophils # 0.02 (0-0.4) Sodium 136 L (137-145) mmol/L Potassium 4.0 (3.5-5.1) mmol/L Chloride 97 L (98-107) mmol/L Carbon Dioxide 26 (22-30) mmol/L Anion Gap 17.7 H (5-15) MEQ/L BUN 16 (9-20) mg/dL Creatinine 1.24 (0.66-1.25) mg/dL Estimated GFR > 60.0 ML/MIN Glucose 166 H (74-106) mg/dL Calcium 9.9 (8.4-10.2) mg/dL Total Bilirubin 0.90 (0.2-1.3) mg/dL AST 61 H (17-59) U/L ALT 70 H (0-50) U/L Alkaline Phosphatase 46 (38-126) U/L Troponin I < 0.012 (0.000-0.034) ng/mL NT-Pro-B Natriuret Pep 24.6 (0-900) pg/mL Serum Total Protein 8.8 H (6.3-8.2) g/dL Albumin 5.1 H (3.5-5.0) g/dL - Departure Clinical Impression: Right cervical radiculopathy Condition: Good Referrals: YUMIKO KAY MD [Primary Care Provider] - Instructions: Radiculopathy (DC) <ALEXIA ALLEN - Last Filed: 09/20/19 19:53> - Course Nursing assessment & vital signs reviewed: Yes EKG Interpreted by Me: RATE, Right [place] Deviation, Right Bundle Branch Block, Other (No evidence of ST changes consistent with acute myocardial ischemia or injury pattern) - Radiology Exams Chest X-ray Interpretation: Interpreted by nj, Reviewed by me, Negative - Progress Progress: unchanged Air Movement: good Progress Note: 09/20/19 19:41 Patient care was transitioned to nj at 1900 hrs. The patient was billed as a chief complaint of chest pain but actually has right shoulder and arm pain. He states that his pain started yesterday upon awakening and he normally sleeps on his right side. His main complaint was a "burning" pain located in the medial aspect of his right forearm and and hand involving the pinky and ring finger. He states he feels as if the pain originated in his right scapula. He also endorsed having a history of having bone spurs in his right shoulder and had surgery in his right shoulder at [facility] to have these bone spurs removed some years ago. He cannot remember the name of his surgeon. He follows with Dr. Kay for primary care. [place] any recent neck, shoulder or arm trauma. On my exam he had no midline cervical spine tenderness crepitus or step-offs. He had relatively normal range of motion of the right shoulder joint and it appeared to be equal in comparison to the left. His bicep reflex and triceps reflex was 2+ bilaterally. Sensation in the median, ulnar, and radial nerve distributions of the hands were grossly intact to touch and equal. Electric Motor Winder strength was 4+ bilaterally, biceps flexion and triceps extension was 4+ bilaterally and the patient was able to abduct his shoulders without difficulty. He did have a positive Sp[place] test on the right. Reviewed the patient's labs and his EKG. His EKG shows a baseline right bundle branch block that appears similar compared to prior EKGs in our system. He does not have any evidence of a leukocytosis and lacks a fever and my suspicion for an infectious etiology is low at this time. His troponin was within normal limits. I suspect the patient is likely suffering from a right cervical radiculopathy at this time. Given that he is on apixaban, he cannot have NSAIDs and I will prescribe a short course for [place] and told to follow-up with his primary care provider to inquire about the need for physical therapy and ongoing pain management. Counseled pt/family regarding: lab results, diagnosis, need for follow-up, rad results - Departure Departure Disposition: Home, In-patient Admission Critical Care Time: No
[2019-09-20 18:49] LABS: Absolute Neutrophil Ct (ANC) 5.15 (1.4-6.9); BASOPHIL % 0.3 % (0.0-0.4); Basophil (Absolute #) 0.02 (0-0.4); Eosinophil % 1.1 % (0.00-5.0); Eosinophil (Absolute #) 0.08 (0-0.5); Hematocrit 50.7 % (42-50); Hemoglobin 17.4 gm/dl (12.5-18.0); Lymphocyte (Absolute #) 1.89 (1.0-4.6); Lymphocytes % 25.5 % (24.0-44.0); Mean Cell Volume 86.7 fl (78-100); Mean Corpuscular Hemoglobin 29.7 pg (26-32); Mean Corpuscular Hgb Concent. 34.3 g/dl (32-36); Mean Platelet Volume 10.3 fl (7.5-11.0); Monocyte (Absolute #) 0.28 (0.0-1.3); Monocytes % 3.8 % (0.0-12.0); Neutrophil % 69.3 % (36.0-66.0); Platelet Count 213 K/mm3 (150-450); Red Blood Count 5.85 M/mm3 (4.1-5.6); Red Cell Distribution Width 13.9 % (11.5-14.0); White Blood Count 7.4 K/mm3 (4.0-10.5)
[2019-09-20 19:09] LABS: ALBUMIN 5.1 g/dL (3.5-5.0); ALKALINE PHOSPHATASE 46 U/L (38-126); ANION GAP 17.7 MEQ/L (5-15); BLOOD UREA NITROGEN 16 mg/dL (9-20); CHLORIDE 97 mmol/L (98-107); Calcium 9.9 mg/dL (8.4-10.2); Carbon Dioxide 26 mmol/L (22-30); Creatinine 1 1.24 mg/dL (0.66-1.25); Glucose 166 mg/dL (74-106); NT PRO BNP 24.6 pg/mL (0-900); SGOT/AST 61 U/L (17-59); SGPT/ALT 70 U/L (0-50); SODIUM 136 mmol/L (137-145); Total Protein 8.8 g/dL (6.3-8.2)
[2019-09-20] MEDS ORDERED: TYLENOL 325 MG PO ONE (19:12)
[2019-09-20] MEDS ORDERED: TYLENOL 325 MG ONE (19:15)
[2019-09-20 20:00] VITALS: BP 155/100; PULSE 67; O2SAT 100
--- NOTE | 2019-09-20 20:36 | XRAY ---
Indication: Chest pain. Comparison: December 24, 2017. Portable chest again demonstrates normal heart and lungs. Bony thorax intact again with sternotomy wires and midline surgical clips base of neck. Impression: Continued nonacute chest.
== END 2019-09-20 20:03 | disposition home or self-care (01) ==
LOC: ED 18:02
DX: M54.12 Radiculopathy, cervical region (principal); M25.511 Pain in right shoulder; I10 Essential (primary) hypertension; E11.9 Type 2 diabetes mellitus without complications; I25.10 Atherosclerotic heart disease of native coronary artery without angina pectoris; Z79.4 Long term (current) use of insulin; Z79.899 Other long term (current) drug therapy; G62.9 Polyneuropathy, unspecified; I25.2 Old myocardial infarction; J44.9 Chronic obstructive pulmonary disease, unspecified; M19.90 Unspecified osteoarthritis, unspecified site; F32.9 Major depressive disorder, single episode, unspecified; Z86.79 Personal history of other diseases of the circulatory system; G47.419 Narcolepsy without cataplexy
CPT/HCPCS: 36000; 36415; 71045; 80053; 83880; 84484; 85025; 93005; 93041; 94760; 96360; 99284; A9270-GY

== ENCOUNTER 2021-11-01 11:32 | Emergency (ER) | payer MEDICAID, OTHER ==
--- NOTE | 2021-11-01 12:13 | ERPHSYRPT ---
- History of Present Illness Time Seen by Provider: 11/01/21 11:40 Source: patient Exam Limitations: no limitations Patient Subjective Stated Complaint: Pt states "I cannot breath and my left shoulder hurts." Triage Nursing Assessment: Pt presented alert and oriented X 3, skin pwd Pt ambulates with a slow gait. PT speaking in three to four word grunting sentences pt has +4 pitting edema noted bilat lower extremities. and non pitting edema noted bilat hands Physician History: Patient is a 51-year-old male presents to emergency department for evaluation of shortness of breath. Patient states over the past 3 days he has gotten progressively short of breath. Concomitantly patient has noticed progressive swelling of his body. Patient has a history of thyroid cancer. Patient has not been compliant with his cancer regimen per report. Patient has not taken his medication because he feels depressed. Patient states he is depressed because his family has not visited with him. Patient symptoms are progressive. Symptoms are moderate in intensity. Activity worsens symptomology. Rest improves the shortness of breath. No chest pain no nausea vomiting or diaphoresis. No diarrhea. No rash. No fever. Patient voices no other complaints or concerns at this time. Timing/Duration: day(s) (Progressive over 3 days) Severity: moderate Modifying Factors: Improves With: other (Activity worsening shortness of breath.) Associated Symptoms: other (Shortness of breath associated with progressive swelling of entire body) Allergies/Adverse Reactions: gabapentin [From Neurontin] Allergy (Severe, Verified 09/20/19 18:05) headaches escitalopram oxalate [From Lexapro] Allergy (Verified 09/20/19 18:05) Home Medications: Atorvastatin Calcium [Lipitor 20MG Tablet] 40 mg PO DAILY 03/06/12 [History] Metformin HCl 500 mg [Glucophage 500 MG] 500 mg PO BID 03/06/12 [History] Carvedilol 12.5 mg [Coreg 12.5 mg] 12.5 mg PO BID 10/25/12 [History] Omeprazole 20 MG [Prilosec 20 mg] 20 mg PO BID 10/25/12 [History] Albuterol 2.5 mg/3 ml Neb [Proventil 2.5 mg/3 ml Neb] 2.5 mg IH Q6H 09/10/15 [History] Albuterol Sulfate [Proventil Hfa] 6.7 gm IH Q4H 09/10/15 [History] Fluticasone/Vilanterol [Breo Ellipta 100-25 Mcg INH] 1 each IH DAILY 09/10/15 [History] Ropinirole HCl [Requip] 0.25 mg PO BID 09/10/15 [History] armodafiniL [Nuvigil] 200 mg PO BID 09/10/15 [History] Nitroglycerin 4.1 gm TL UD 12/28/15 [History] Isosorbide Mononitrate 30 mg [Imdur 30 MG] 30 mg PO DAILY 09/12/16 [History] Losartan Potassium 50 mg [Cozaar 50 MG] 50 mg PO DAILY 09/12/16 [History] Hx Tetanus, Diphtheria Vaccination/Date Given: Yes Hx Influenza Vaccination/Date Given: Yes Hx Pneumococcal Vaccination/Date Given: Yes (2 years ago) Immunizations Up to Date: Yes Travel Risk - International Travel Have you traveled outside of the country in past 3 weeks: No - Coronavirus Screening Are you exhibiting any of the following symptoms?: No Close contact with a COVID-19 positive Pt in past 14-21 Days: No - Vaccine Status Have you recieved a Covid-19 vaccination: No - Review of Systems Constitutional: No Symptoms, No Fever, No Chills Eyes: No Symptoms Ears, Nose, & Throat: No Symptoms Respiratory: No Symptoms, No Cough, No Dyspnea Cardiac: No Symptoms, No Chest Pain, No Edema, No Syncope Abdominal/Gastrointestinal: No Symptoms, No Abdominal Pain, No Nausea, No Vomiting, No Diarrhea Genitourinary Symptoms: No Symptoms, No Dysuria Musculoskeletal: No Symptoms, No Back Pain, No Neck Pain Skin: No Symptoms, No Rash Neurological: No Symptoms, No Dizziness, No Focal Weakness, No Sensory Changes Psychological: No Symptoms Endocrine: No Symptoms Hematologic/Lymphatic: No Symptoms Immunological/Allergic: No Symptoms All Other Systems: Reviewed and Negative - Past Medical History Pertinent Past Medical History: Yes Neurological History: Peripheral Neuropathy, TIA ENT History: No Pertinent History Cardiac History: High Cholesterol, Hypertension, Myocardial Infarction ([place]) Respiratory History: COPD Endocrine Medical History: Diabetes Type II Musculoskeletal History: Arthritis GI Medical History: No Pertinent History History: No Pertinent History Psycho-Social History: Depression Male Reproductive Disorders: No Pertinent History Other Medical History: 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, 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, history of afib, NARCOLEPSY - Past Surgical History Past Surgical History: Yes (heart surgery) Neuro Surgical History: No Pertinent History Cardiac: Cardiac Catheterization Respiratory: No Pertinent History Gastrointestinal: Cholecystectomy, Hernia Repair Genitourinary: No Pertinent History Musculoskeletal: No Pertinent History Male Surgical History: No Pertinent History Other Surgical History: open heart at age 10 for valve replacement and repair of holes in heart, right shoulder, great toenails removed 08/13/15 - Social History Smoking Status: Former smoker How long have you smoked: 15 Exposure to second hand smoke: No Drug Use: none Patient Lives Alone: No - Nursing Vital Signs Nursing Vital Signs: Initial Vital Signs Temperature 98.0 F 11/01/21 11:33 Pulse Rate 122 H 11/01/21 11:33 Respiratory Rate 26 H 11/01/21 11:33 Blood Pressure 126/95 11/01/21 11:33 O2 Sat by Pulse Oximetry 98 11/01/21 11:33 Pain Scale Pain Intensity 0 - Physical Exam General Appearance: no apparent distress, alert, other (Diffusely edematous/anasarca) Eye Exam: PERRL/EOMI, eyes nml inspection Ears, Nose, Throat Exam: normal ENT inspection, TMs normal, pharynx normal, moist mucous membranes Neck Exam: normal inspection, non-tender, supple, full range of motion Respiratory Exam: normal breath sounds, lungs clear, airway intact, No chest tenderness, No respiratory distress Cardiovascular Exam: regular rate/rhythm, normal heart sounds, normal peripheral pulses Gastrointestinal/Abdomen Exam: soft, normal bowel sounds, No tenderness, No mass Back Exam: normal inspection, normal range of motion, No CVA tenderness, No vertebral tenderness Extremity Exam: normal inspection, normal range of motion, pelvis stable Neurologic Exam: alert, oriented x 3, cooperative, normal mood/affect, nml cer ebellar function, nml station & gait, sensation nml, No motor deficits Skin Exam: normal color, warm, dry, No rash Lymphatic Exam: No adenopathy SpO2 Interpretation: normal SpO2: 98 O2 Delivery: Room Air - Course Nursing assessment & vital signs reviewed: Yes EKG Interpreted by Me: RATE (134), A-fib, NORMAL AXIS, Right Bundle Branch Block - Radiology Exams Chest X-ray Interpretation: Teleradiologist Report (Mild diffuse pulmonary edema. Cardiac decompensation suspected. Bony thorax intact. Trace pleural effusion) - CT Exams Head CT Interpretation: Tele-radiologist Report (Monoclonal infarct of left basal ganglia. Opacification of the left middle ear. Otherwise no acute intracranial pathology.) Ordered Tests: Medication Summary Discontinued Medications Generic Name Dose Route Start Last Admin Trade Name Freq PRN Reason Stop Dose Admin Furosemide 40 mg 11/01/21 14:55 11/01/21 15:23 Furosemide 40 Mg/4 Ml Vial IV 11/01/21 14:56 40 mg STAT ONE Administration Furosemide Confirm 11/01/21 14:59 Furosemide 40 Mg/4 Ml Vial Administered 11/01/21 15:00 Dose 40 mg .ROUTE .STK-MED ONE Hydrocortisone Sodium Succinate 100 mg 11/01/21 14:41 11/01/21 14:44 Hydrocortisone Sod Succinate 100 Mg/Vial Vial IV 11/01/21 14:42 100 mg STAT ONE Administration Levothyroxine Sodium 200 mcg 11/02/21 15:15 11/01/21 15:23 Levothyroxine Sodium 200 Mcg/Vial Vial IV 11/02/21 15:16 200 mcg STAT ONE Administration Levothyroxine Sodium 100 mcg 11/02/21 15:15 11/01/21 15:23 Levothyroxine Sodium 100 Mcg Tablet PO 11/02/21 15:16 100 mcg STAT ONE Administration Levothyroxine Sodium Confirm 11/01/21 15:18 Levothyroxine Sodium 100 Mcg Tablet Administered 11/01/21 15:19 Dose 100 mcg .ROUTE .ConcernTrak-MED ONE Lab/Rad Data: Laboratory Result Diagrams 11/01/21 12:25 11/01/21 12:25 Laboratory Results 11/01/21 11/01/21 11/01/21 Range/Units 16:05 16:05 14:10 WBC (4.0-10.5) x10^3/uL RBC (4.1-5.6) x10^6/uL Hgb (12.5-18.0) g/dL Hct (42-50) % MCV (78-100) fL MCH (26-32) pg MCHC (32-36) g/dL RDW (11.5-14.0) % Plt Count (150-450) x10^3/uL MPV (7.5-11.0) fL Gran % (36.0-66.0) % Immature Gran % (Auto) (0.00-0.4) % Nucleat RBC Rel Count (0.00-0.1) % Eos # (Auto) (0-0.5) x10^3/uL Immature Gran # (Auto) (0.00-0.03) x10^3u/L Absolute Lymphs (auto) (1.0-4.6) x10^3/uL Absolute Monos (auto) (0.0-1.3) x10^3/uL Absolute Nucleated RBC (0.00-0.01) x10^3u/L Lymphocytes % (24.0-44.0) % Monocytes % (0.0-12.0) % Eosinophils % (0.00-5.0) % Basophils % (0.0-0.4) % Absolute Granulocytes (1.4-6.9) x10^3/uL Basophils # (0-0.4) x10^3/uL Sodium (137-145) mmol/L Potassium (3.5-5.1) mmol/L Chloride (98-107) mmol/L Carbon Dioxide (22-30) mmol/L Anion Gap (5-15) MEQ/L BUN (9-20) mg/dL Creatinine (0.66-1.25) mg/dL Estimated GFR ML/MIN Glucose (74-106) mg/dL Calcium (8.4-10.2) mg/dL Total Bilirubin (0.2-1.3) mg/dL AST (17-59) U/L ALT (0-50) U/L Alkaline Phosphatase (38-126) U/L NT-Pro-B Natriuret Pep (0-900) pg/mL Serum Total Protein (6.3-8.2) g/dL Albumin (3.5-5.0) g/dL Free T4 < 0.07 L (0.76-1.46) ng/dL Free T3 pg/mL 0.65 L (2.77-5.27) pg/mL TSH 3rd Generation (0.47-4.68) mIU/L Urine Opiates Level NEGATIVE (NEGATIVE) Ur Methadone NEGATIVE (NEGATIVE) Urine Barbiturates NEGATIVE (NEGATIVE) Ur Phencyclidine (PCP) NEGATIVE (NEGATIVE) Urine Amphetamine POSITIVE (NEGATIVE) U Benzodiazepine Level NEGATIVE (NEGATIVE) Urine Cocaine NEGATIVE (NEGATIVE) Urine Marijuana (THC) NEGATIVE (NEGATIVE) Slides for Path Review 11/01/21 11/01/21 Range/Units 12:25 12:25 WBC 7.6 (4.0-10.5) x10^3/uL RBC 4.01 L (4.1-5.6) x10^6/uL Hgb 12.3 L (12.5-18.0) g/dL Hct 38.7 L (42-50) % MCV 96.5 (78-100) fL MCH 30.7 (26-32) pg MCHC 31.8 L (32-36) g/dL RDW 15.9 H (11.5-14.0) % Plt Count 111 L (150-450) x10^3/uL MPV 12.2 H (7.5-11.0) fL Gran % 73.9 H (36.0-66.0) % Immature Gran % (Auto) 0.3 (0.00-0.4) % Nucleat RBC Rel Count 0.3 H (0.00-0.1) % Eos # (Auto) 0.12 (0-0.5) x10^3/uL Immature Gran # (Auto) 0.02 (0.00-0.03) x10^3u/L Absolute Lymphs (auto) 1.46 (1.0-4.6) x10^3/uL Absolute Monos (auto) 0.33 (0.0-1.3) x10^3/uL Absolute Nucleated RBC 0.02 H (0.00-0.01) x10^3u/L Lymphocytes % 19.2 L (24.0-44.0) % Monocytes % 4.3 (0.0-12.0) % Eosinophils % 1.6 (0.00-5.0) % Basophils % 0.7 (0.0-0.4) % Absolute Granulocytes 5.61 (1.4-6.9) x10^3/uL Basophils # 0.05 (0-0.4) x10^3/uL Sodium 137 (137-145) mmol/L Potassium 4.3 (3.5-5.1) mmol/L Chloride 101 (98-107) mmol/L Carbon Dioxide 19 L (22-30) mmol/L Anion Gap 21.6 H (5-15) MEQ/L BUN 18 (9-20) mg/dL Creatinine 1.39 H (0.66-1.25) mg/dL Estimated GFR 57.0 ML/MIN Glucose 135 H (74-106) mg/dL Calcium 9.4 (8.4-10.2) mg/dL Total Bilirubin 1.80 H (0.2-1.3) mg/dL AST 583 H (17-59) U/L ALT 605 H (0-50) U/L Alkaline Phosphatase 162 H (38-126) U/L NT-Pro-B Natriuret Pep 3190 H (0-900) pg/mL Serum Total Protein 8.0 (6.3-8.2) g/dL Albumin 4.8 (3.5-5.0) g/dL Free T4 (0.76-1.46) ng/dL Free T3 pg/mL (2.77-5.27) pg/mL TSH 3rd Generation 57.800 H (0.47-4.68) mIU/L Urine Opiates Level (NEGATIVE) Ur Methadone (NEGATIVE) Urine Barbiturates (NEGATIVE) Ur Phencyclidine (PCP) (NEGATIVE) Urine Amphetamine (NEGATIVE) U Benzodiazepine Level (NEGATIVE) Urine Cocaine (NEGATIVE) Urine Marijuana (THC) (NEGATIVE) Slides for Path Review YES - Progress Progress: improved Progress Note: Case discussed with Dr. Austin at [facility] who accepts transfer. However [facility] is no beds available currently 11/01/21 16:13 [facility] currently does not have beds available and do not know when they will have a bed available. We contacted [facility]. Case discussed with Dr. Luu and Dr. Iqbal. Dr. Iqbal hospitalist requested a CT head however he did accept transfer. Plan of care discussed with patient. He agrees to transfer to [facility] for further evaluation and treatment. Portions of this note were created with voice recognition technology. There may be grammatical, spelling, punctuation or sound alike errors 11/01/21 16:55 Discussed with DrMalika: Pedro (Case discussed with Dr. Baron who advises transfer to facility with endocrine and oncology) Counseled pt/family regarding: lab results, diagnosis, rad results - Departure Departure Disposition: Transfer Clinical Impression: Shortness of breath, Anasarca, Transaminitis, Total bilirubin, elevated, Hypothyroidism, Elevated brain natriuretic peptide (BNP) level, Congestive heart failure, Pulmonary edema, Sinus tachycardia Condition: Stable Critical Care Time: No Referrals: YUMIKO KAY MD [Primary Care Provider] - Follow up/PCP as directed Instructions: Heart Failure
[2021-11-01 12:52] LABS: Absolute Neutrophil Ct (ANC) 5.61 x10^3/uL (1.4-6.9); Basophil (Absolute #) 0.05 x10^3/uL (0-0.4); Eosinophil % 1.6 % (0.00-5.0); Eosinophil (Absolute #) 0.12 x10^3/uL (0-0.5); Hematocrit 38.7 % (42-50); Hemoglobin 12.3 g/dL (12.5-18.0); Lymphocyte (Absolute #) 1.46 x10^3/uL (1.0-4.6); Lymphocytes % 19.2 % (24.0-44.0); Mean Cell Volume 96.5 fL (78-100); Mean Corpuscular Hemoglobin 30.7 pg (26-32); Mean Corpuscular Hgb Concent. 31.8 g/dL (32-36); Mean Platelet Volume 12.2 fL (7.5-11.0); Monocyte (Absolute #) 0.33 x10^3/uL (0.0-1.3); Monocytes % 4.3 % (0.0-12.0); Neutrophil % 73.9 % (36.0-66.0); Platelet Count 111 x10^3/uL (150-450); Red Blood Count 4.01 x10^6/uL (4.1-5.6); Red Cell Distribution Width 15.9 % (11.5-14.0); White Blood Count 7.6 x10^3/uL (4.0-10.5)
--- NOTE | 2021-11-01 12:59 | XRAY ---
Indication: Short of breath 2 days. Comparison: September 20, 2019. Portable chest demonstrates new cardiomegaly, mild diffuse pulmonary edema, and small bibasilar effusions favoring cardiac decompensation/CHF. Superimposed pneumonia not completely excluded. Bony thorax intact again with sternotomy wires and surgical clips space of neck.
[2021-11-01 13:30] LABS: ALBUMIN 4.8 g/dL (3.5-5.0); ANION GAP 21.6 MEQ/L (5-15); BILIRUBIN,TOTAL 1.8 mg/dL (0.2-1.3); Calcium 9.4 mg/dL (8.4-10.2); Creatinine 1 1.39 mg/dL (0.66-1.25); Potassium 4.3 mmol/L (3.5-5.1); TSH, 3RD Generation 57.8 mIU/L (0.47-4.68)
[2021-11-01 14:35] LABS: Slide Review 1 YES
[2021-11-01] MEDS ORDERED: solu-CORTEF 100MG IV ONE (14:41)
[2021-11-01] MEDS ORDERED: Synthroid 200 MCG INJECTION IV STA (14:48)
[2021-11-01] MEDS ORDERED: Lasix 40 MG/4 ML IV ONE (14:55)
[2021-11-01] MEDS ORDERED: Lasix 40 MG/4 ML ONE (14:59)
[2021-11-01] MEDS ORDERED: SYNTHROID 100 MCG ONE (15:18)
[2021-11-01 16:35] LABS: Amphetamine,Urine POSITIVE (NEGATIVE); Barbiturate,Urine NEGATIVE (NEGATIVE); Benzodiazepine,Urine NEGATIVE (NEGATIVE); Cocaine,Urine NEGATIVE (NEGATIVE); Methadone,Urine NEGATIVE (NEGATIVE); Opiate,Urine NEGATIVE (NEGATIVE); PCP,Urine NEGATIVE (NEGATIVE); THC,Urine NEGATIVE (NEGATIVE)
[2021-11-01 17:17] VITALS: BP 123/81; PULSE 128
--- NOTE | 2021-11-02 08:33 | XRAY ---
Indication: Confusion. Mass. Multiple contiguous axial images obtained through the head without contrast. Comparison: October 24, 2015. There remains age-appropriate global atrophy, minimal periventricular degenerative micro-ischemia, and remote lacunar infarct left basal ganglia. No acute intracranial hemorrhage, abnormal extra-axial fluid collection, or mass effect. Fourth ventricle is midline without hydrocephalus. [place]-white matter differentiation preserved. Bony calvarium intact. New partial opacification left middle ear and left mastoid air cells presumed inflammatory. Visualized paranasal sinuses are clear. Impression: 1. Again atrophy, degenerative micro-ischemia, and remote lacunar infarct left basal ganglia. 2. New partial opacification left middle ear/mastoid air cells presumed inflammatory. 3. Remaining CT head without contrast exam is negative.
[2021-11-02] MEDS ORDERED: SYNTHROID 100 MCG PO ONE (15:15)
[2021-11-02] MEDS ORDERED: Synthroid 200 MCG INJECTION IV ONE (15:15)
[2021-11-03 05:15] VITALS: O2SAT 98
== END 2021-11-01 16:15 | disposition short-term general hospital (02) ==
LOC: ED 11:32
DX: I11.0 Hypertensive heart disease with heart failure (principal); I50.1 Left ventricular failure, unspecified; R06.02 Shortness of breath; R60.1 Generalized edema; R74.01 Elevation of levels of liver transaminase levels; R17 Unspecified jaundice; E03.9 Hypothyroidism, unspecified; R79.89 Other specified abnormal findings of blood chemistry; R00.0 Tachycardia, unspecified; Z91.14 Patient's other noncompliance with medication regimen; Z63.8 Other specified problems related to primary support group; E78.5 Hyperlipidemia, unspecified; J44.9 Chronic obstructive pulmonary disease, unspecified; E11.42 Type 2 diabetes mellitus with diabetic polyneuropathy; Z79.84 Long term (current) use of oral hypoglycemic drugs; Z79.899 Other long term (current) drug therapy
CPT/HCPCS: 36000; 36415; 70450; 71045; 80053; 80307; 83880; 84439; 84443; 84481; 85025; 93005; 93041; 94760; 96374; 96375; 99285; J1720; J1940; A9270-GY

== ENCOUNTER 2021-11-07 02:59 | Observation (INO) | payer OTHER ==
[2021-11-07] MEDS ORDERED: PROVENTIL 2.5 MG/3 ML NEB IH ONE (03:03)
[2021-11-07] MEDS ORDERED: Lasix 40 MG/4 ML IV ONE (03:03)
[2021-11-07] MEDS ORDERED: solu-MEDROL 125 MG, Sterile H2O 10 ml 2 ML IV ONE ×2 (03:03)
[2021-11-07] MEDS ORDERED: Sterile H2O 10 ml IJ ONE ×2 (03:21→03:26)
[2021-11-07] MEDS ORDERED: solu-MEDROL ONE (03:21)
[2021-11-07] MEDS ORDERED: DUONEB 0.5-3 MG/3 ml Neb IH ONE ×3 (03:24→03:41)
[2021-11-07] MEDS ORDERED: Lasix 40 MG/4 ML ONE (03:26)
--- NOTE | 2021-11-07 03:33 | ERPHSYRPT ---
- History of Present Illness Source: patient Exam Limitations: no limitations Timing/Duration: yesterday, gradual onset, worse Severity of Dyspnea-Max: severe Severity of Dyspnea-Current: severe Possible Cause: unknown cause Modifying Factors: Worsens With: coughing, exertion Associated Symptoms: cough, chest pain/discomfort, edema, heaviness, productive cough, tightness Hx Tetanus, Diphtheria Vaccination/Date Given: Yes Hx Influenza Vaccination/Date Given: Yes Hx Pneumococcal Vaccination/Date Given: Yes (2 years ago) - History of Present Illness Time Seen by Provider: 11/07/21 03:03 Physician History: 51 years old male with history of thyroid cancer, COPD, congestive heart failure, diabetes mellitus, tobacco abuse, atrial fibrillation on Eliquis was recently admitted at [facility] for myxedema/respiratory failure, discharged couple of days ago presented to the ER with increasing shortness of breath since yesterday with minimal productive cough and increasing bilateral lower extremity swelling. Patient is in moderate to severe distress with wheezing and decreased air movement on presentation and oxygen saturation in 70s. Does not use oxygen at home. Denies any chest pain but tightness and pressure. No fever or chills reported. (ERICK SANABRIA) Allergies/Adverse Reactions: gabapentin [From Neurontin] Allergy (Severe, Verified 11/07/21 03:01) headaches escitalopram oxalate [From Lexapro] Allergy (Verified 11/07/21 03:01) Home Medications: Atorvastatin Calcium [Lipitor 20MG Tablet] 40 mg PO DAILY 03/06/12 [History] Metformin HCl 500 mg [Glucophage 500 MG] 500 mg PO BID 03/06/12 [History] Carvedilol 12.5 mg [Coreg 12.5 mg] 12.5 mg PO BID 10/25/12 [History] Omeprazole 20 MG [Prilosec 20 mg] 20 mg PO BID 10/25/12 [History] Albuterol 2.5 mg/3 ml Neb [Proventil 2.5 mg/3 ml Neb] 2.5 mg IH Q6H 09/10/15 [History] Albuterol Sulfate [Proventil Hfa] 6.7 gm IH Q4H 09/10/15 [History] Fluticasone/Vilanterol [Breo Ellipta 100-25 Mcg INH] 1 each IH DAILY 09/10/15 [History] Ropinirole HCl [Requip] 0.25 mg PO BID 09/10/15 [History] armodafiniL [Nuvigil] 200 mg PO BID 09/10/15 [History] Nitroglycerin 4.1 gm TL UD 12/28/15 [History] Isosorbide Mononitrate 30 mg [Imdur 30 MG] 30 mg PO DAILY 09/12/16 [History] Losartan Potassium 50 mg [Cozaar 50 MG] 50 mg PO DAILY 09/12/16 [History] Travel Risk - Vaccine Status Have you recieved a Covid-19 vaccination: No - Review of Systems Constitutional: No Symptoms Eyes: No Symptoms Respiratory: Cough, Dyspnea, Dyspnea on Exertion (MANCIA), Wheezing Cardiac: Edema Abdominal/Gastrointestinal: No Symptoms Genitourinary Symptoms: No Symptoms Musculoskeletal: Arthralgias Skin: No Symptoms Neurological: No Symptoms Psychological: Depression Hematologic/Lymphatic: No Symptoms Immunological/Allergic: No Symptoms - Past Medical History Pertinent Past Medical History: Yes Neurological History: Peripheral Neuropathy, TIA ENT History: No Pertinent History Cardiac History: High Cholesterol, Hypertension, Myocardial Infarction ([place]) Respiratory History: COPD Endocrine Medical History: Diabetes Type II Musculoskeletal History: Arthritis GI Medical History: No Pertinent History History: No Pertinent History Psycho-Social History: Depression Male Reproductive Disorders: No Pertinent History Other Medical History: 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, 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, history of afib, NARCOLEPSY - Past Surgical History Past Surgical History: Yes (heart surgery) Neuro Surgical History: No Pertinent History Cardiac: Cardiac Catheterization Respiratory: No Pertinent History Gastrointestinal: Cholecystectomy, Hernia Repair Genitourinary: No Pertinent History Musculoskeletal: No Pertinent History Male Surgical History: No Pertinent History Other Surgical History: open heart at age 10 for valve replacement and repair of holes in heart, right shoulder, great toenails removed 08/13/15 - Social History Smoking Status: Former smoker How long have you smoked: 15 Exposure to second hand smoke: No Drug Use: none Patient Lives Alone: No - Physical Exam General Appearance: moderate distress, alert Eye Exam: PERRL/EOMI Ears, Nose, Throat Exam: hearing grossly normal, pharyngeal erythema Neck Exam: normal inspection, non-tender, full range of motion Respiratory Exam: respiratory distress, diminished breath sounds, accessory muscle use, rhonchi, wheezing Cardiovascular/Chest Exam: normal heart sounds, regular rate/rhythm, edema Abdominal/Gastrointestinal Exam: soft, normal bowel sounds, No tenderness Extremity Exam: non-tender, pedal edema Neurologic Exam: alert, oriented x 3, cooperative Skin Exam: normal color SpO2 Interpretation: hypoxic, O2 applied SpO2: 93 O2 Delivery: Nasal Cannula (6 L) - Nursing Vital Signs Nursing Vital Signs: Initial Vital Signs Temperature 97.2 F 11/07/21 02:59 Pulse Rate 64 11/07/21 02:59 Respiratory Rate 24 11/07/21 02:59 Blood Pressure 121/72 11/07/21 02:59 O2 Sat by Pulse Oximetry 88 L 11/07/21 02:59 Pain Scale Pain Intensity 4 Ordered Tests: Active Orders 24 hr Category Date Time Status [employer] STAT Care 11/07/21 03:04 Completed EKG-ER Only STAT Care 11/07/21 03:03 Completed IV Insertion STAT Care 11/07/21 03:03 Completed NPO (ED) STAT Care 11/07/21 03:03 Completed CHEST 1 VIEW (PORTABLE) Stat Exams 11/07/21 03:04 Taken ARTERIAL BLOOD GASES Stat Lab 11/07/21 03:03 Completed BLOOD CULTURE Stat Lab 11/07/21 03:25 Received CBC W DIFF Stat Lab 11/07/21 03:15 Completed CMP Stat Lab 11/07/21 03:15 Completed Lactic Acid Stat Lab 11/07/21 03:03 Completed MAGNESIUM Stat Lab 11/07/21 03:15 Completed NT PRO BNP Stat Lab 11/07/21 03:15 Completed PROCALCITONIN Stat Lab 11/07/21 03:15 Completed TROPONIN Q3H Lab 11/07/21 03:15 Completed TROPONIN Q3H Lab 11/07/21 05:22 Completed TROPONIN Q3H Lab 11/07/21 09:15 Ordered TROPONIN Q3H Lab 11/07/21 12:15 Ordered TROPONIN Q3H Lab 11/07/21 15:15 Ordered TSH, 3RD Generation Stat Lab 11/07/21 03:15 Completed UA W/RFX CULTURE Stat Lab 11/07/21 03:53 Completed BiPap/CPAP STAT RT 11/07/21 03:03 Completed Respiratory Therapy Assessment DAILY RT 11/07/21 03:44 Completed Transfer Order Routine Transfer 11/07/21 Ordered Medication Summary Discontinued Medications Generic Name Dose Route Start Last Admin Trade Name Lio PRN Reason Stop Dose Admin Albuterol/Ipratropium Confirm 11/07/21 03:24 Ipratropium/Albuterol Sulfate 3 Ml Ampul.Neb Administered 11/07/21 03:25 Dose 6 ml IH .STK-MED ONE Albuterol/Ipratropium 3 ml 11/07/21 03:41 11/07/21 03:00 Ipratropium/Albuterol Sulfate 3 Ml Ampul.Neb 11/07/21 03:42 3 ml STAT ONE Administration Albuterol/Ipratropium 3 ml 11/07/21 03:41 11/07/21 03:27 Ipratropium/Albuterol Sulfate 3 Ml Ampul.[facility] 11/07/21 03:42 3 ml STAT ONE Administration Methylprednisolone Sodium 0 mg 11/07/21 03:03 11/07/21 03:37 Succinate 125 mg/ Sterile IV 11/07/21 03:04 125 mg Water 2 ml STAT ONE Administration Furosemide 60 mg 11/07/21 03:03 11/07/21 03:37 Furosemide 40 Mg/4 Ml Vial IV 11/07/21 03:04 Not Given STAT ONE Furosemide Confirm 11/07/21 03:26 Furosemide 40 Mg/4 Ml Vial Administered 11/07/21 03:27 Dose 80 mg .ROUTE .STK-MED ONE Ceftriaxone Sodium/Dextrose 2 g in 50 mls @ 100 mls/hr 11/07/21 03:51 11/07/21 05:03 Rocephin 2 Gm-D5w 50ml Bag IV 11/07/21 04:20 Infused STAT STA Infusion Azithromycin 500 mg in 250 mls @ 250 mls/hr 11/07/21 03:51 11/07/21 05:12 Zithromax 500 Mg/ 250 Ml Nacl Premix IV 11/07/21 04:50 Infused STAT STA Infusion Azithromycin Confirm 11/07/21 04:10 Zithromax 500 Mg/ 250 Ml Nacl Premix Administered 11/07/21 04:11 Dose 500 mg in 250 mls @ ud IV .STK-MED ONE Ceftriaxone Sodium/Dextrose Confirm 11/07/21 04:10 Rocephin 2 Gm-D5w 50ml Bag Administered 11/07/21 04:11 Dose 2 g in 50 mls @ ud IV .STK-MED ONE Methylprednisolone Sodium Succinate Confirm 11/07/21 03:21 Methylprednis Sod Succ 125 Mg/2 Ml Vial Administered 11/07/21 03:22 Dose 125 mg .ROUTE .STK-MED ONE Sterile Water Confirm 11/07/21 03:21 Water For Injection,Sterile 10 Ml Vial Administered 11/07/21 03:22 Dose 10 ml IJ .STK-MED ONE Sterile Water Confirm 11/07/21 03:26 Water For Injection,Sterile 10 Ml Vial Administered 11/07/21 03:27 Dose 10 ml IJ .STK-MED ONE Lab/Rad Data: Laboratory Result Diagrams 11/07/21 03:15 11/07/21 03:15 Laboratory Results 11/07/21 11/07/21 11/07/21 Range/Units 05:22 04:03 03:53 WBC (4.0-10.5) x10^3/uL RBC (4.1-5.6) x10^6/uL Hgb (12.5-18.0) g/dL Hct (42-50) % MCV (78-100) fL MCH (26-32) pg MCHC (32-36) g/dL RDW (11.5-14.0) % Plt Count (150-450) x10^3/uL MPV (7.5-11.0) fL Gran % (36.0-66.0) % Immature Gran % (Auto) (0.00-0.4) % Nucleat RBC Rel Count (0.00-0.1) % Eos # (Auto) (0-0.5) x10^3/uL Immature Gran # (Auto) (0.00-0.03) x10^3u/L Absolute Lymphs (auto) (1.0-4.6) x10^3/uL Absolute Monos (auto) (0.0-1.3) x10^3/uL Absolute Nucleated RBC (0.00-0.01) x10^3u/L Lymphocytes % (24.0-44.0) % Monocytes % (0.0-12.0) % Eosinophils % (0.00-5.0) % Basophils % (0.0-0.4) % Absolute Granulocytes (1.4-6.9) x10^3/uL Basophils # (0-0.4) x10^3/uL Puncture Site pCO2 (35-45) mmHg pO2 (75-100) mmHg Base Excess (-2.0-2.0) ABG pH (7.35-7.45) ABG HCO3 (22-28) ABG O2 Sat (Measured) (95-100) % Martell Test A-a Gradient a/A Ratio Hemoglobin Carboxyhemoglobin (0.0-6.9) % THgb Methemoglobin (1.4-1.5) % Potassium (3.5-5.1) POC O2 Flow Rate % Sodium (137-145) mmol/L Chloride (98-107) mmol/L Carbon Dioxide (23-27) mEq/L Anion Gap (5-15) MEQ/L BUN (9-20) mg/dL Creatinine (0.66-1.25) mg/dL Estimated GFR ML/MIN Glucose (74-106) mg/dL Lactic Acid (0.4-2.0) Calcium (8.4-10.2) mg/dL Magnesium (1.6-2.3) mg/dL Total Bilirubin (0.2-1.3) mg/dL AST (17-59) U/L ALT (0-50) U/L Alkaline Phosphatase (38-126) U/L Troponin I 0.014 (0.000-0.034) ng/mL NT-Pro-B Natriuret Pep (0-900) pg/mL Serum Total Protein (6.3-8.2) g/dL Albumin (3.5-5.0) g/dL Procalcitonin (0.030-0.080) ng/mL TSH 3rd Generation (0.47-4.68) mIU/L Urinalys Dipstick Clnc MAIN LAB Urine Color YELLOW (YELLOW) Urine Appearance CLEAR (CLEAR) Urine pH 6.0 (5-6) Ur Specific [place] 1.015 (1.005-1.025) POC Urine Protein Conf TRACE (Negative) Urine Ketones NEGATIVE (NEGATIVE) Urine Nitrite NEGATIVE (NEGATIVE) Urine Bilirubin NEGATIVE (NEGATIVE) Urine Urobilinogen 1 (0-1) mg/dL Urine Leukocytes NEGATIVE (NEGATIVE) Urine WBC (Auto) 0-2 (0-5) /HPF Urine RBC (Auto) NONE (0-2) /HPF U Epithel Cells (Auto) NONE (FEW) /HPF Urine Bacteria (Auto) NONE SEEN (NEGATIVE) /HPF Urine RBC NEGATIVE (0-5) Olvin/ul Ur Culture Indicated? NO Urine Glucose 100 (NEGATIVE) mg/dL Influenza Type A Ag NEGATIVE (NEGATIVE) Influenza Type B Ag NEGATIVE (NEGATIVE) RSV (PCR) NEGATIVE (Negative) SARS-CoV-2 (PCR) POSITIVE A (NEGATIVE) 11/07/21 11/07/21 11/07/21 Range/Units 03:15 03:15 03:15 WBC (4.0-10.5) x10^3/uL RBC (4.1-5.6) x10^6/uL Hgb (12.5-18.0) g/dL Hct (42-50) % MCV (78-100) fL MCH (26-32) pg MCHC (32-36) g/dL RDW (11.5-14.0) % Plt Count (150-450) x10^3/uL MPV (7.5-11.0) fL Gran % (36.0-66.0) % Immature Gran % (Auto) (0.00-0.4) % Nucleat RBC Rel Count (0.00-0.1) % Eos # (Auto) (0-0.5) x10^3/uL Immature Gran # (Auto) (0.00-0.03) x10^3u/L Absolute Lymphs (auto) (1.0-4.6) x10^3/uL Absolute Monos (auto) (0.0-1.3) x10^3/uL Absolute Nucleated RBC (0.00-0.01) x10^3u/L Lymphocytes % (24.0-44.0) % Monocytes % (0.0-12.0) % Eosinophils % (0.00-5.0) % Basophils % (0.0-0.4) % Absolute Granulocytes (1.4-6.9) x10^3/uL Basophils # (0-0.4) x10^3/uL Puncture Site pCO2 (35-45) mmHg pO2 (75-100) mmHg Base Excess (-2.0-2.0) ABG pH (7.35-7.45) ABG HCO3 (22-28) ABG O2 Sat (Measured) (95-100) % Martell Test A-a Gradient a/A Ratio Hemoglobin Carboxyhemoglobin (0.0-6.9) % THgb Methemoglobin (1.4-1.5) % Potassium 4.1 (3.5-5.1) POC O2 Flow Rate % Sodium 138 (137-145) mmol/L Chloride 99 (98-107) mmol/L Carbon Dioxide 31 H (23-27) mEq/L Anion Gap 13.0 (5-15) MEQ/L BUN 34 H (9-20) mg/dL Creatinine 1.15 (0.66-1.25) mg/dL Estimated GFR > 60.0 ML/MIN Glucose 221 H (74-106) mg/dL Lactic Acid (0.4-2.0) Calcium 9.0 (8.4-10.2) mg/dL Magnesium 1.8 (1.6-2.3) mg/dL Total Bilirubin 0.80 (0.2-1.3) mg/dL AST 106 H (17-59) U/L ALT 423 H (0-50) U/L Alkaline Phosphatase 231 H (38-126) U/L Troponin I 0.017 (0.000-0.034) ng/mL NT-Pro-B Natriuret Pep 1410 H (0-900) pg/mL Serum Total Protein 6.9 (6.3-8.2) g/dL Albumin 3.9 (3.5-5.0) g/dL Procalcitonin 0.085 H (0.030-0.080) ng/mL TSH 3rd Generation 36.000 H (0.47-4.68) mIU/L Urinalys Dipstick Clnc Urine Color (YELLOW) Urine Appearance (CLEAR) Urine pH (5-6) Ur Specific [place] (1.005-1.025) POC Urine Protein Conf (Negative) Urine Ketones (NEGATIVE) Urine Nitrite (NEGATIVE) Urine Bilirubin (NEGATIVE) Urine Urobilinogen (0-1) mg/dL Urine Leukocytes (NEGATIVE) Urine WBC (Auto) (0-5) /HPF Urine RBC (Auto) (0-2) /HPF U Epithel Cells (Auto) (FEW) /HPF Urine Bacteria (Auto) (NEGATIVE) /HPF Urine RBC (0-5) Olvin/ul Ur Culture Indicated? Urine Glucose (NEGATIVE) mg/dL Influenza Type A Ag (NEGATIVE) Influenza Type B Ag (NEGATIVE) RSV (PCR) (Negative) SARS-CoV-2 (PCR) (NEGATIVE) 11/07/21 11/07/21 Range/Units 03:15 03:03 WBC 7.2 (4.0-10.5) x10^3/uL RBC 3.50 L (4.1-5.6) x10^6/uL Hgb 10.8 L (12.5-18.0) g/dL Hct 34.0 L (42-50) % MCV 97.1 (78-100) fL MCH 30.9 (26-32) pg MCHC 31.8 L (32-36) g/dL RDW 17.0 H (11.5-14.0) % Plt Count 186 (150-450) x10^3/uL MPV 11.5 H (7.5-11.0) fL Gran % 74.6 H (36.0-66.0) % Immature Gran % (Auto) 1.5 H (0.00-0.4) % Nucleat RBC Rel Count 0.4 H (0.00-0.1) % Eos # (Auto) 0.11 (0-0.5) x10^3/uL Immature Gran # (Auto) 0.11 H (0.00-0.03) x10^3u/L Absolute Lymphs (auto) 1.23 (1.0-4.6) x10^3/uL Absolute Monos (auto) 0.38 (0.0-1.3) x10^3/uL Absolute Nucleated RBC 0.03 H (0.00-0.01) x10^3u/L Lymphocytes % 17.0 L (24.0-44.0) % Monocytes % 5.3 (0.0-12.0) % Eosinophils % 1.5 (0.00-5.0) % Basophils % 0.1 (0.0-0.4) % Absolute Granulocytes 5.39 (1.4-6.9) x10^3/uL Basophils # 0.01 (0-0.4) x10^3/uL Puncture Site R Radial pCO2 42 (35-45) mmHg pO2 213 H* (75-100) mmHg Base Excess 5.4 H (-2.0-2.0) ABG pH 7.46 H (7.35-7.45) ABG HCO3 29.9 H* (22-28) ABG O2 Sat (Measured) 99.5 (95-100) % Martell Test Yes A-a Gradient 48 a/A Ratio 0.82 Hemoglobin 10.8 Carboxyhemoglobin 1.1 (0.0-6.9) % THgb Methemoglobin 0.9 L (1.4-1.5) % Potassium 4.2 (3.5-5.1) POC O2 Flow Rate 44 % Sodium (137-145) mmol/L Chloride (98-107) mmol/L Carbon Dioxide 31 H (23-27) mEq/L Anion Gap (5-15) MEQ/L BUN (9-20) mg/dL Creatinine (0.66-1.25) mg/dL Estimated GFR ML/MIN Glucose (74-106) mg/dL Lactic Acid 1.7 (0.4-2.0) Calcium (8.4-10.2) mg/dL Magnesium (1.6-2.3) mg/dL Total Bilirubin (0.2-1.3) mg/dL AST (17-59) U/L ALT (0-50) U/L Alkaline Phosphatase (38-126) U/L Troponin I (0.000-0.034) ng/mL NT-Pro-B Natriuret Pep (0-900) pg/mL Serum Total Protein (6.3-8.2) g/dL Albumin (3.5-5.0) g/dL Procalcitonin (0.030-0.080) ng/mL TSH 3rd Generation (0.47-4.68) mIU/L Urinalys Dipstick Clnc Urine Color (YELLOW) Urine Appearance (CLEAR) Urine pH (5-6) Ur Specific [place] (1.005-1.025) POC Urine Protein Conf (Negative) Urine Ketones (NEGATIVE) Urine Nitrite (NEGATIVE) Urine Bilirubin (NEGATIVE) Urine Urobilinogen (0-1) mg/dL Urine Leukocytes (NEGATIVE) Urine WBC (Auto) (0-5) /HPF Urine RBC (Auto) (0-2) /HPF U Epithel Cells (Auto) (FEW) /HPF Urine Bacteria (Auto) (NEGATIVE) /HPF Urine RBC (0-5) Olvin/ul Ur Culture Indicated? Urine Glucose (NEGATIVE) mg/dL Influenza Type A Ag (NEGATIVE) Influenza Type B Ag (NEGATIVE) RSV (PCR) (Negative) SARS-CoV-2 (PCR) (NEGATIVE) - Progress Progress: improved Air Movement: fair Blood Culture(s) Obtained: Yes Antibiotics given: Yes Discussed with DrMalika: John Will see patient in: hospital (observation) Counseled pt/family regarding: lab results, diagnosis, rad results, smoking cessation - Progress Progress Note: 11/07/21 04:21 [facility] 11/07/21 08:15 I just received a phone call from our nurse who spoke with the medical floor nursing staff regarding this patient. Dr. Gray was notified that the patient was on the floor. However, initially he stated that no one called him and discussed this patient with him. I contacted Dr. Sanabria who stated emphatically that he did speak with Dr. Gray who accepted the patient to the medical floor at 4:21 AM on 11/07/2021. This is documented in the chart. Within a few minutes after I spoke with Dr. Sanabria, Dr. Gray did acknowledge that a phone call was made to him but he still was not going to accept the patient to the medical floor. I put a call into Dr. Hughes, the patient's primary care physician. I am awaiting a callback. It is now 8:15 in the morning. Patient is on the medical floor at this time and out of the emergency department. This note was left by Dr. Samm Artis. Dr. Sanabria has left for the day 11/07/21 08:28 I just got off the phone with Dr. Hughes. I reviewed the patient history and laboratory results with him. The patient will be transferred to his care and service. The orders will remain the same. I spoke with our nurse Fredo who is contacting the for to advise them of the change in attending physician. This second addendum was made by Dr. Samm Artis. 11/07/21 08:29 (SAMM ARTIS) - Departure Departure Disposition: Observation Critical Care Time: Yes Critical Care Time(excluding separately billable procedures): Critical 30-74 mins - Departure Clinical Impression: Hypothyroidism, Pneumonia, Respiratory failure, COPD exacerbation Condition: Fair
[2021-11-07 03:41] LABS: Absolute Neutrophil Ct (ANC) 5.39 x10^3/uL (1.4-6.9); Basophil (Absolute #) 0.01 x10^3/uL (0-0.4); Eosinophil % 1.5 % (0.00-5.0); Eosinophil (Absolute #) 0.11 x10^3/uL (0-0.5); Hemoglobin 10.8 g/dL (12.5-18.0); Lymphocyte (Absolute #) 1.23 x10^3/uL (1.0-4.6); Mean Cell Volume 97.1 fL (78-100); Mean Corpuscular Hemoglobin 30.9 pg (26-32); Mean Corpuscular Hgb Concent. 31.8 g/dL (32-36); Mean Platelet Volume 11.5 fL (7.5-11.0); Monocyte (Absolute #) 0.38 x10^3/uL (0.0-1.3); Monocytes % 5.3 % (0.0-12.0); Neutrophil % 74.6 % (36.0-66.0); Platelet Count 186 x10^3/uL (150-450); White Blood Count 7.2 x10^3/uL (4.0-10.5)
[2021-11-07 03:49] LABS: ALBUMIN 3.9 g/dL (3.5-5.0); ALKALINE PHOSPHATASE 231 U/L (38-126); BLOOD UREA NITROGEN 34 mg/dL (9-20); CHLORIDE 99 mmol/L (98-107); Carbon Dioxide 31 mmol/L (22-30); Creatinine 1 1.15 mg/dL (0.66-1.25); EST GLOMERULAR FILTRATION RATE > 60.0 ML/MIN; Glucose 221 mg/dL (74-106); MAGNESIUM 1.8 mg/dL (1.6-2.3); NT PRO BNP 1410 pg/mL (0-900); Potassium 4.1 mmol/L (3.5-5.1); SGOT/AST 106 U/L (17-59); SGPT/ALT 423 U/L (0-50); SODIUM 138 mmol/L (137-145); Total Protein 6.9 g/dL (6.3-8.2)
[2021-11-07 03:50] LABS: ARTERIAL BLOOD GAS PCO2 42 mmHg (35-45); ARTERIAL BLOOD GAS PO2 213 mmHg (75-100); ARTERIAL BLOOD GAS pH 7.46 (7.35-7.45)
[2021-11-07 03:51] LABS: A-aADO2 48; ABG POTASSIUM 4.2 (3.5-5.1); ARTERIAL BLD GAS O2 SATURATION 99.5 % (95-100); ARTERIAL BLOOD GAS BASE EXCESS 5.4 (-2.0-2.0); CARBON DIOXIDE 31 mEq/L (23-27); HCO3- 29.9 (22-28); Methhemoglobin 0.9 % (1.4-1.5)
[2021-11-07] MEDS ORDERED: ROCEPHIN 2 Gm-D5w 50ML BAG** 2 G/50 ML IVPB IV STA (03:51)
[2021-11-07] MEDS ORDERED: Zithromax 500 MG/ 250 ML NaCl Premix 500 MG/250 ML IVPB IV STA (03:51)
[2021-11-07 03:52] LABS: ABG HEMOGLOBIN 10.8; ARTERIAL BLOOD GAS FIO2 44 %; CARBOXYHEMOGLOBIN 1.1 % THgb (0.0-6.9)
[2021-11-07 03:53] LABS: ABG SITE R Radial; ALLEN TEST OK? Yes; Lactic Acid 1.7 (0.4-2.0)
[2021-11-07] MEDS ORDERED: Zithromax 500 MG/ 250 ML NaCl Premix 500 MG/250 ML IVPB IV ONE (04:10)
[2021-11-07] MEDS ORDERED: ROCEPHIN 2 Gm-D5w 50ML BAG** 2 G/50 ML IVPB IV ONE (04:10)
[2021-11-07 04:11] LABS: WBC 0-2 /HPF (0-5)
[2021-11-07 04:12] LABS: PROCALCITONIN 0.085 ng/mL (0.030-0.080)
[2021-11-07 04:12] LABS: Appearance CLEAR (CLEAR)
[2021-11-07 04:13] LABS: Bacteria NONE SEEN /HPF (NEGATIVE); Bilirubin NEGATIVE (NEGATIVE); Dipstick done @ ? MAIN LAB; Glucose 100 mg/dL (NEGATIVE); Ketones NEGATIVE (NEGATIVE); Nitrite NEGATIVE (NEGATIVE); Protein,Urine Dip TRACE (Negative); RBC NEGATIVE Ery/ul (0-5); Specific Gravity 1.015 (1.005-1.025); Urobilinogen 1 mg/dL (0-1)
[2021-11-07 04:14] LABS: Urine Cultured Indicated? NO
[2021-11-07 04:41] LABS: INFLUENZA A NEGATIVE (NEGATIVE); INFLUENZA B NEGATIVE (NEGATIVE); RESPIRATORY SYNCTIAL VIRUS NEGATIVE (Negative)
[2021-11-07 05:17] LABS: SARS-CoV-2 Xpert Express POSITIVE (NEGATIVE)
[2021-11-07] MEDS ORDERED: TYLENOL 325 MG PO PRN (08:27)
[2021-11-07] MEDS ORDERED: Zofran 4 MG/2 ML VIAL IV PRN (08:27)
[2021-11-07] MEDS ORDERED: DUONEB 0.5-3 MG/3 ml Neb IH SCH (08:27)
[2021-11-07] MEDS ORDERED: solu-MEDROL 60 MG, Sterile H2O 10 ml 2 ML IV SCH ×2 (08:27)
--- NOTE | 2021-11-07 08:54 | XRAY ---
Indication: Chest pain and short of breath. Comparison: November 01, 2021. Portable chest demonstrates new subtle right mid to lower lung infiltrate versus atelectasis without consolidation/large effusion. Remaining heart and left lung unremarkable. Bony thorax intact again with sternotomy wires and surgical clips base of neck. Comment: Preliminary interpretation made by [facility]. No critical discrepancy.
[2021-11-07] MEDS ORDERED: REMDESIVIR 200 MG in Sodium Chloride 0.9% 250 ML 250 ML IV ONE (09:00)
--- NOTE | 2021-11-07 09:01 | PCM.HP ---
History of Present Illness - Chief Complaint Chief Complaint: acute hypoxic respiratory failure History of Present Illness: is a 51 year old male who presented to the ER last night, he was released from [facility] earlier in the day, he reports worsening cough and shortness of breath, positive for covid in ER. he is currently on room air but c/o shortness of breath, cough and feeling weak. high tsh, hx thyroidectomy, not taking synthroid for the last 2-3 months, having insurance issues and trying to get on disability. no chest pain. - Review of Systems Constitutional: No Fever, No Chills Respiratory: Cough, Short Of Breath, Wheezing Cardiac: No Chest Pain, No Edema, No Syncope Abdominal/Gastrointestinal: No Abdominal Pain, No Nausea, No Vomiting, No Diarrhea Genitourinary Symptoms: No Dysuria All Other Systems: Reviewed and Negative Medications & Allergies Home Medications: Home Medication List Atorvastatin Calcium [Lipitor 20MG Tablet] 40 mg PO DAILY 03/06/12 [History Confirmed 11/01/21] Metformin HCl 500 mg [Glucophage 500 MG] 500 mg PO BID 03/06/12 [History Confirmed 11/01/21] Carvedilol 12.5 mg [Coreg 12.5 mg] 12.5 mg PO BID 10/25/12 [History Confirmed 11/01/21] Omeprazole 20 MG [Prilosec 20 mg] 20 mg PO BID 10/25/12 [History Confirmed 11/01/21] Pregabalin 50 mg [Lyrica 50MG] 100 mg PO TID #90 03/24/14 [Rx Confirmed 11/01/21] Albuterol 2.5 mg/3 ml Neb [Proventil 2.5 mg/3 ml Neb] 2.5 mg IH Q6H 09/10/15 [History Confirmed 11/01/21] Albuterol Sulfate [Proventil Hfa] 6.7 gm IH Q4H 09/10/15 [History Confirmed 11/01/21] Fluticasone/Vilanterol [Breo Ellipta 100-25 Mcg INH] 1 each IH DAILY 09/10/15 [History Confirmed 11/01/21] Ropinirole HCl [Requip] 0.25 mg PO BID 09/10/15 [History Confirmed 11/01/21] armodafiniL [Nuvigil] 200 mg PO BID 09/10/15 [History Confirmed 11/01/21] Nitroglycerin 4.1 gm TL UD 12/28/15 [History Confirmed 11/01/21] Isosorbide Mononitrate 30 mg [Imdur 30 MG] 30 mg PO DAILY 09/12/16 [History Confirmed 11/01/21] Losartan Potassium 50 mg [Cozaar 50 MG] 50 mg PO DAILY 09/12/16 [History Confirmed 11/01/21] Apixaban [Eliquis 5 mg Tablet] 5 mg PO BID #0 03/03/17 [Rx Confirmed 11/01/21] Hydrocodone/APAP 5/325 [[place] 5/325 mg] 1 each PO Q6H PRN PRN #16 tablet MDD 4 09/20/19 [Rx Confirmed 11/01/21] Allergies/Adverse Reactions: Allergies Allergy/AdvReac Type Severity Reaction Status Date / Time gabapentin [From Neurontin] Allergy Severe headaches Verified 11/07/21 03:01 escitalopram oxalate Allergy Verified 11/07/21 03:01 [From Lexapro] - Past Medical History Past Medical History: Yes Neurological History: Peripheral Neuropathy, TIA ENT History: No Pertinent History Cardiac History: High Cholesterol, Hypertension, Myocardial Infarction ([place]) Respiratory History: COPD Endocrine Medical History: Diabetes Type II Musculoskelatal History: Arthritis GI Medical History: No Pertinent History History: No Pertinent History Pyscho-Social History: Depression Male Reproductive Disorders: No Pertinent History Comment: 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, 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, history of afib, NARCOLEPSY - Past Surgical History Past Surgical History: Yes (heart surgery) Neuro Surgical History: No Pertinent History Cardiac History: Cardiac Catheterization Respiratory Surgery: No Pertinent History GI Surgical History: Cholecystectomy, Hernia Repair Genitourinary Surgical Hx: No Pertinent History Musculskeletal Surgical Hx: No Pertinent History Male Surgical History: No Pertinent History Other Surgical History: open heart at age 10 for valve replacement and repair of holes in heart, right shoulder, great toenails removed 08/13/15 - Social History Smoking Status: Former smoker How long have you smoked: 15 Exposure to second hand smoke: No Alcohol: None Drug Use: none - Physical Exam Vital Signs: Vital Signs - 24 hr Temp Pulse Resp BP Pulse Ox 11/07/21 07:28 97.6 F 75 20 105/67 98 11/07/21 06:00 72 98/64 97 11/07/21 05:00 71 14 104/74 98 11/07/21 04:22 93 L 11/07/21 04:17 67 8 L 106/70 100 11/07/21 03:27 63 24 100 11/07/21 03:00 66 24 94 L 11/07/21 02:59 97.2 F 64 24 121/72 88 L General Appearance: no apparent distress, alert Neurologic Exam: alert, oriented x 3 Neck Exam: normal inspection, non-tender, supple, full range of motion Respiratory Exam: prolonged expirations, rhonchi Cardiovascular Exam: regular rate/rhythm Gastrointestinal/Abdomen Exam: soft, normal bowel sounds, No tenderness, No mass Extremity Exam: normal inspection, normal range of motion, pelvis stable Skin Exam: normal color, warm, dry, No rash Results - Labs Lab/Micro Results: Lab Results-Last 24 Hours 11/07/21 11/07/21 11/07/21 Range/Units 03:03 03:15 03:15 WBC 7.2 (4.0-10.5) x10^3/uL RBC 3.50 L (4.1-5.6) x10^6/uL Hgb 10.8 L (12.5-18.0) g/dL Hct 34.0 L (42-50) % MCV 97.1 (78-100) fL MCH 30.9 (26-32) pg MCHC 31.8 L (32-36) g/dL RDW 17.0 H (11.5-14.0) % Plt Count 186 (150-450) x10^3/uL MPV 11.5 H (7.5-11.0) fL Gran % 74.6 H (36.0-66.0) % Immature Gran % (Auto) 1.5 H (0.00-0.4) % Nucleat RBC Rel Count 0.4 H (0.00-0.1) % Eos # (Auto) 0.11 (0-0.5) x10^3/uL Immature Gran # (Auto) 0.11 H (0.00-0.03) x10^3u/L Absolute Lymphs (auto) 1.23 (1.0-4.6) x10^3/uL Absolute Monos (auto) 0.38 (0.0-1.3) x10^3/uL Absolute Nucleated RBC 0.03 H (0.00-0.01) x10^3u/L Lymphocytes % 17.0 L (24.0-44.0) % Monocytes % 5.3 (0.0-12.0) % Eosinophils % 1.5 (0.00-5.0) % Basophils % 0.1 (0.0-0.4) % Absolute Granulocytes 5.39 (1.4-6.9) x10^3/uL Basophils # 0.01 (0-0.4) x10^3/uL Puncture Site R Radial pCO2 42 (35-45) mmHg pO2 213 H* (75-100) mmHg Base Excess 5.4 H (-2.0-2.0) ABG pH 7.46 H (7.35-7.45) ABG HCO3 29.9 H* (22-28) ABG O2 Sat (Measured) 99.5 (95-100) % Martell Test Yes A-a Gradient 48 a/A Ratio 0.82 Hemoglobin 10.8 Carboxyhemoglobin 1.1 (0.0-6.9) % THgb Methemoglobin 0.9 L (1.4-1.5) % Potassium 4.2 4.1 (3.5-5.1) POC O2 Flow Rate 44 % Sodium 138 (137-145) mmol/L Chloride 99 (98-107) mmol/L Carbon Dioxide 31 H 31 H (23-27) mEq/L Anion Gap 13.0 (5-15) MEQ/L BUN 34 H (9-20) mg/dL Creatinine 1.15 (0.66-1.25) mg/dL Estimated GFR > 60.0 ML/MIN Glucose 221 H (74-106) mg/dL Lactic Acid 1.7 (0.4-2.0) Calcium 9.0 (8.4-10.2) mg/dL Magnesium 1.8 (1.6-2.3) mg/dL Total Bilirubin 0.80 (0.2-1.3) mg/dL AST 106 H (17-59) U/L ALT 423 H (0-50) U/L Alkaline Phosphatase 231 H (38-126) U/L Troponin I (0.000-0.034) ng/mL NT-Pro-B Natriuret Pep 1410 H (0-900) pg/mL Serum Total Protein 6.9 (6.3-8.2) g/dL Albumin 3.9 (3.5-5.0) g/dL Procalcitonin (0.030-0.080) ng/mL TSH 3rd Generation (0.47-4.68) mIU/L Urinalys Dipstick Clnc Urine Color (YELLOW) Urine Appearance (CLEAR) Urine pH (5-6) Ur Specific [place] (1.005-1.025) POC Urine Protein Conf (Negative) Urine Ketones (NEGATIVE) Urine Nitrite (NEGATIVE) Urine Bilirubin (NEGATIVE) Urine Urobilinogen (0-1) mg/dL Urine Leukocytes (NEGATIVE) Urine WBC (Auto) (0-5) /HPF Urine RBC (Auto) (0-2) /HPF U Epithel Cells (Auto) (FEW) /HPF Urine Bacteria (Auto) (NEGATIVE) /HPF Urine RBC (0-5) Olvin/ul Ur Culture Indicated? Urine Glucose (NEGATIVE) mg/dL Influenza Type A Ag (NEGATIVE) Influenza Type B Ag (NEGATIVE) RSV (PCR) (Negative) SARS-CoV-2 (PCR) (NEGATIVE) 11/07/21 11/07/21 11/07/21 Range/Units 03:15 03:15 03:53 WBC (4.0-10.5) x10^3/uL RBC (4.1-5.6) x10^6/uL Hgb (12.5-18.0) g/dL Hct (42-50) % MCV (78-100) fL MCH (26-32) pg MCHC (32-36) g/dL RDW (11.5-14.0) % Plt Count (150-450) x10^3/uL MPV (7.5-11.0) fL Gran % (36.0-66.0) % Immature Gran % (Auto) (0.00-0.4) % Nucleat RBC Rel Count (0.00-0.1) % Eos # (Auto) (0-0.5) x10^3/uL Immature Gran # (Auto) (0.00-0.03) x10^3u/L Absolute Lymphs (auto) (1.0-4.6) x10^3/uL Absolute Monos (auto) (0.0-1.3) x10^3/uL Absolute Nucleated RBC (0.00-0.01) x10^3u/L Lymphocytes % (24.0-44.0) % Monocytes % (0.0-12.0) % Eosinophils % (0.00-5.0) % Basophils % (0.0-0.4) % Absolute Granulocytes (1.4-6.9) x10^3/uL Basophils # (0-0.4) x10^3/uL Puncture Site pCO2 (35-45) mmHg pO2 (75-100) mmHg Base Excess (-2.0-2.0) ABG pH (7.35-7.45) ABG HCO3 (22-28) ABG O2 Sat (Measured) (95-100) % Martell Test A-a Gradient a/A Ratio Hemoglobin Carboxyhemoglobin (0.0-6.9) % THgb Methemoglobin (1.4-1.5) % Potassium (3.5-5.1) POC O2 Flow Rate % Sodium (137-145) mmol/L Chloride (98-107) mmol/L Carbon Dioxide (23-27) mEq/L Anion Gap (5-15) MEQ/L BUN (9-20) mg/dL Creatinine (0.66-1.25) mg/dL Estimated GFR ML/MIN Glucose (74-106) mg/dL Lactic Acid (0.4-2.0) Calcium (8.4-10.2) mg/dL Magnesium (1.6-2.3) mg/dL Total Bilirubin (0.2-1.3) mg/dL AST (17-59) U/L ALT (0-50) U/L Alkaline Phosphatase (38-126) U/L Troponin I 0.017 (0.000-0.034) ng/mL NT-Pro-B Natriuret Pep (0-900) pg/mL Serum Total Protein (6.3-8.2) g/dL Albumin (3.5-5.0) g/dL Procalcitonin 0.085 H (0.030-0.080) ng/mL TSH 3rd Generation 36.000 H (0.47-4.68) mIU/L Urinalys Dipstick Clnc MAIN LAB Urine Color YELLOW (YELLOW) Urine Appearance CLEAR (CLEAR) Urine pH 6.0 (5-6) Ur Specific [place] 1.015 (1.005-1.025) POC Urine Protein Conf TRACE (Negative) Urine Ketones NEGATIVE (NEGATIVE) Urine Nitrite NEGATIVE (NEGATIVE) Urine Bilirubin NEGATIVE (NEGATIVE) Urine Urobilinogen 1 (0-1) mg/dL Urine Leukocytes NEGATIVE (NEGATIVE) Urine WBC (Auto) 0-2 (0-5) /HPF Urine RBC (Auto) NONE (0-2) /HPF U Epithel Cells (Auto) NONE (FEW) /HPF Urine Bacteria (Auto) NONE SEEN (NEGATIVE) /HPF Urine RBC NEGATIVE (0-5) Olvin/ul Ur Culture Indicated? NO Urine Glucose 100 (NEGATIVE) mg/dL Influenza Type A Ag (NEGATIVE) Influenza Type B Ag (NEGATIVE) RSV (PCR) (Negative) SARS-CoV-2 (PCR) (NEGATIVE) 11/07/21 11/07/21 Range/Units 04:03 05:22 WBC (4.0-10.5) x10^3/uL RBC (4.1-5.6) x10^6/uL Hgb (12.5-18.0) g/dL Hct (42-50) % MCV (78-100) fL MCH (26-32) pg MCHC (32-36) g/dL RDW (11.5-14.0) % Plt Count (150-450) x10^3/uL MPV (7.5-11.0) fL Gran % (36.0-66.0) % Immature Gran % (Auto) (0.00-0.4) % Nucleat RBC Rel Count (0.00-0.1) % Eos # (Auto) (0-0.5) x10^3/uL Immature Gran # (Auto) (0.00-0.03) x10^3u/L Absolute Lymphs (auto) (1.0-4.6) x10^3/uL Absolute Monos (auto) (0.0-1.3) x10^3/uL Absolute Nucleated RBC (0.00-0.01) x10^3u/L Lymphocytes % (24.0-44.0) % Monocytes % (0.0-12.0) % Eosinophils % (0.00-5.0) % Basophils % (0.0-0.4) % Absolute Granulocytes (1.4-6.9) x10^3/uL Basophils # (0-0.4) x10^3/uL Puncture Site pCO2 (35-45) mmHg pO2 (75-100) mmHg Base Excess (-2.0-2.0) ABG pH (7.35-7.45) ABG HCO3 (22-28) ABG O2 Sat (Measured) (95-100) % Martell Test A-a Gradient a/A Ratio Hemoglobin Carboxyhemoglobin (0.0-6.9) % THgb Methemoglobin (1.4-1.5) % Potassium (3.5-5.1) POC O2 Flow Rate % Sodium (137-145) mmol/L Chloride (98-107) mmol/L Carbon Dioxide (23-27) mEq/L Anion Gap (5-15) MEQ/L BUN (9-20) mg/dL Creatinine (0.66-1.25) mg/dL Estimated GFR ML/MIN Glucose (74-106) mg/dL Lactic Acid (0.4-2.0) Calcium (8.4-10.2) mg/dL Magnesium (1.6-2.3) mg/dL Total Bilirubin (0.2-1.3) mg/dL AST (17-59) U/L ALT (0-50) U/L Alkaline Phosphatase (38-126) U/L Troponin I 0.014 (0.000-0.034) ng/mL NT-Pro-B Natriuret Pep (0-900) pg/mL Serum Total Protein (6.3-8.2) g/dL Albumin (3.5-5.0) g/dL Procalcitonin (0.030-0.080) ng/mL TSH 3rd Generation (0.47-4.68) mIU/L Urinalys Dipstick Clnc Urine Color (YELLOW) Urine Appearance (CLEAR) Urine pH (5-6) Ur Specific [place] (1.005-1.025) POC Urine Protein Conf (Negative) Urine Ketones (NEGATIVE) Urine Nitrite (NEGATIVE) Urine Bilirubin (NEGATIVE) Urine Urobilinogen (0-1) mg/dL Urine Leukocytes (NEGATIVE) Urine WBC (Auto) (0-5) /HPF Urine RBC (Auto) (0-2) /HPF U Epithel Cells (Auto) (FEW) /HPF Urine Bacteria (Auto) (NEGATIVE) /HPF Urine RBC (0-5) Olvin/ul Ur Culture Indicated? Urine Glucose (NEGATIVE) mg/dL Influenza Type A Ag NEGATIVE (NEGATIVE) Influenza Type B Ag NEGATIVE (NEGATIVE) RSV (PCR) NEGATIVE (Negative) SARS-CoV-2 (PCR) POSITIVE A (NEGATIVE) - Radiology Impressions Radiology Exams & Impressions: Radiology Procedures Category Date Time Status CHEST 1 VIEW (PORTABLE) Stat Exams 11/07/21 03:04 Completed - Other Procedures and Tests Respiratory Therapy 11/07/21 08:27 Oxygen Nasal Cannula 3 lpm Assessment/Plan (1) COVID-19 Current Visit: Yes Status: Acute Assessment & Plan: plan to treat with remdesivir and dexamethasone, currently on room air. 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
[2021-11-07] MEDS ORDERED: PROTONIX 40 MG IV IV SCH (10:00)
[2021-11-07] MEDS ORDERED: ENOXAPARIN SODIUM SQ SCH (10:00)
[2021-11-07] MEDS: SYNTHROID 50 MCG PO SCH (10:29)
[2021-11-07] MEDS: Decadron 4 MG INJ IV SCH ×2 (10:29→21:31)
[2021-11-07] MEDS: HUMALOG SQ PRN ×3 (12:21→21:30)
[2021-11-07] MEDS: Requip 0.5 MG PO SCH ×2 (12:54→21:29)
[2021-11-07] MEDS: Cordarone 200 MG PO SCH (12:55)
[2021-11-07] MEDS: Cozaar 50 MG PO SCH (12:55)
[2021-11-07] MEDS: COREG 12.5 MG PO SCH ×2 (12:55→21:30)
[2021-11-07] MEDS: ZOCOR 20MG PO SCH (12:56)
[2021-11-07] MEDS: Imdur 30 MG PO SCH (12:56)
[2021-11-07] MEDS: LYRICA 100MG PO SCH ×2 (14:46→21:29)
[2021-11-07] MEDS ORDERED: Lyrica 50MG PO SCH (15:00)
[2021-11-07] MEDS: ELIQUIS 2.5 MG TABLET PO SCH (21:30)
[2021-11-07] MEDS: Protonix 40MG Tablet PO SCH (21:30)
[2021-11-07] MEDS ORDERED: NON-FORMULARY ITEM (Apixaban*** [Eliquis 5 Mg Tablet***] 5 MG Tablet) PO SCH (22:00)
[2021-11-07] MEDS ORDERED: NON-FORMULARY ITEM (Omeprazole 20 Mg [Prilosec 20 Mg] 20 MG Capsule.Dr) PO SCH (22:00)
[2021-11-07] MEDS ORDERED: ROPINIROLE HCL 0.25 MG PO SCH (22:00)
[2021-11-07] MEDS ORDERED: ROCEPHIN 2 Gm-D5w 50ML BAG** 2 G/50 ML IVPB IV SCH (22:00)
[2021-11-07] MEDS ORDERED: Zithromax 500 MG/ 250 ML NaCl Premix 500 MG/250 ML IVPB IV SCH (22:00)
[2021-11-08 05:15] LABS: Absolute Neutrophil Ct (ANC) 8.16 x10^3/uL (1.4-6.9); Basophil (Absolute #) 0 x10^3/uL (0-0.4); Eosinophil (Absolute #) 0 x10^3/uL (0-0.5); Hematocrit 33.3 % (42-50); Hemoglobin 10.5 g/dL (12.5-18.0); Lymphocyte (Absolute #) 0.69 x10^3/uL (1.0-4.6); Lymphocytes % 7.4 % (24.0-44.0); Mean Cell Volume 97.7 fL (78-100); Mean Corpuscular Hemoglobin 30.8 pg (26-32); Mean Corpuscular Hgb Concent. 31.5 g/dL (32-36); Mean Platelet Volume 11.3 fL (7.5-11.0); Monocyte (Absolute #) 0.35 x10^3/uL (0.0-1.3); Monocytes % 3.7 % (0.0-12.0); Platelet Count 147 x10^3/uL (150-450); Red Blood Count 3.41 x10^6/uL (4.1-5.6); White Blood Count 9.4 x10^3/uL (4.0-10.5)
[2021-11-08 05:51] LABS: ALKALINE PHOSPHATASE 201 U/L (38-126); ANION GAP 13.4 MEQ/L (5-15); BLOOD UREA NITROGEN 24 mg/dL (9-20); CHLORIDE 98 mmol/L (98-107); Calcium 8.8 mg/dL (8.4-10.2); Carbon Dioxide 28 mmol/L (22-30); Creatinine 1 0.92 mg/dL (0.66-1.25); EST GLOMERULAR FILTRATION RATE > 60.0 ML/MIN; Glucose 258 mg/dL (74-106); Potassium 4.8 mmol/L (3.5-5.1); SGOT/AST 89 U/L (17-59); SGPT/ALT 370 U/L (0-50); SODIUM 135 mmol/L (137-145)
[2021-11-08] MEDS: SYNTHROID 50 MCG PO SCH (06:45)
[2021-11-08] MEDS: HUMALOG SQ PRN ×4 (08:05→21:37)
--- NOTE | 2021-11-08 09:11 | PCM.NOTE ---
Date and Time: 11/08/21905 Subjective Assessment: Pt is breathing fine, on room air. Was on O2 2L per NC but sat was 98% and he continues to be 98% now that O2 has been discontinued. Ziyad po. - Review of Systems Constitutional: No Fever Respiratory: Cough Objective Exam General Appearance: no apparent distress, alert (sleeping, wakes to touch) Neurologic Exam: cooperative, No confusion Skin Exam: normal color, warm, dry, No rash Ears, Nose, Throat Exam: moist mucous membranes Neck Exam: normal inspection Respiratory Exam: lungs clear, diminished breath sounds (in bases bilat), No crackles/rales, No rhonchi, No wheezing Cardiovascular Exam: regular rate/rhythm, normal heart sounds, No murmur Gastrointestinal/Abdomen Exam: soft, normal bowel sounds, No tenderness, No distention, No mass, No guarding, No rebound Extremity Exam: normal inspection, No pedal edema, No swelling Back Exam: normal inspection, No rash OBJECTIVE DATA Vital Signs: Vital Signs - 24 hr Temp Pulse Resp BP Pulse Ox 11/08/21 08:33 72 14 98 11/08/21 08:00 14 11/08/21 07:22 98.5 F 66 14 134/69 98 11/08/21 06:00 20 11/08/21 04:00 97.8 F 69 20 117/66 11/08/21 02:00 20 11/08/21 00:00 98.1 F 69 20 117/66 96 11/07/21 20:00 97.8 F 77 20 125/62 96 11/07/21 19:22 80 20 98 11/07/21 18:00 20 11/07/21 16:00 97.7 F 77 22 128/74 94 L 11/07/21 14:00 20 11/07/21 13:30 97.7 F 75 22 125/75 100 11/07/21 12:00 97.4 F 68 22 125/75 92 L 11/07/21 11:18 97 11/07/21 11:13 74 14 97 Pain Assessment - Last Documented Pain Intensity 0 Intake and Output: Intake & Output 11/05/21 11/06/21 11/07/21 11/08/21 11:59 11:59 11:59 11:59 Intake Total 480 1220 Balance 480 1220 Weight 80.7 kg 80.7 kg Lab Results: Lab Results-Last 24 Hours 11/07/21 11/07/21 11/07/21 Range/Units 09:25 11:45 12:00 WBC (4.0-10.5) x10^3/uL RBC (4.1-5.6) x10^6/uL Hgb (12.5-18.0) g/dL Hct (42-50) % MCV (78-100) fL MCH (26-32) pg MCHC (32-36) g/dL RDW (11.5-14.0) % Plt Count (150-450) x10^3/uL MPV (7.5-11.0) fL Gran % (36.0-66.0) % Immature Gran % (Auto) (0.00-0.4) % Nucleat RBC Rel Count (0.00-0.1) % Eos # (Auto) (0-0.5) x10^3/uL Immature Gran # (Auto) (0.00-0.03) x10^3u/L Absolute Lymphs (auto) (1.0-4.6) x10^3/uL Absolute Monos (auto) (0.0-1.3) x10^3/uL Absolute Nucleated RBC (0.00-0.01) x10^3u/L Lymphocytes % (24.0-44.0) % Monocytes % (0.0-12.0) % Eosinophils % (0.00-5.0) % Basophils % (0.0-0.4) % Absolute Granulocytes (1.4-6.9) x10^3/uL Basophils # (0-0.4) x10^3/uL Sodium (137-145) mmol/L Potassium (3.5-5.1) mmol/L Chloride (98-107) mmol/L Carbon Dioxide (22-30) mmol/L Anion Gap (5-15) MEQ/L BUN (9-20) mg/dL Creatinine (0.66-1.25) mg/dL Estimated GFR ML/MIN Glucose (74-106) mg/dL POC Glucometer 306 H (74 to 106) mg/dL Calcium (8.4-10.2) mg/dL Total Bilirubin (0.2-1.3) mg/dL AST (17-59) U/L ALT (0-50) U/L Alkaline Phosphatase (38-126) U/L Troponin I < 0.012 < 0.012 (0.000-0.034) ng/mL Serum Total Protein (6.3-8.2) g/dL Albumin (3.5-5.0) g/dL 11/07/21 11/07/21 11/08/21 Range/Units 16:25 20:48 04:35 WBC 9.4 (4.0-10.5) x10^3/uL RBC 3.41 L (4.1-5.6) x10^6/uL Hgb 10.5 L (12.5-18.0) g/dL Hct 33.3 L (42-50) % MCV 97.7 (78-100) fL MCH 30.8 (26-32) pg MCHC 31.5 L (32-36) g/dL RDW 17.0 H (11.5-14.0) % Plt Count 147 L (150-450) x10^3/uL MPV 11.3 H (7.5-11.0) fL Gran % 87.0 H (36.0-66.0) % Immature Gran % (Auto) 1.9 H (0.00-0.4) % Nucleat RBC Rel Count 0.0 (0.00-0.1) % Eos # (Auto) 0 (0-0.5) x10^3/uL Immature Gran # (Auto) 0.18 H (0.00-0.03) x10^3u/L Absolute Lymphs (auto) 0.69 L (1.0-4.6) x10^3/uL Absolute Monos (auto) 0.35 (0.0-1.3) x10^3/uL Absolute Nucleated RBC 0.00 (0.00-0.01) x10^3u/L Lymphocytes % 7.4 L (24.0-44.0) % Monocytes % 3.7 (0.0-12.0) % Eosinophils % 0.0 (0.00-5.0) % Basophils % 0.0 (0.0-0.4) % Absolute Granulocytes 8.16 H (1.4-6.9) x10^3/uL Basophils # 0 (0-0.4) x10^3/uL Sodium (137-145) mmol/L Potassium (3.5-5.1) mmol/L Chloride (98-107) mmol/L Carbon Dioxide (22-30) mmol/L Anion Gap (5-15) MEQ/L BUN (9-20) mg/dL Creatinine (0.66-1.25) mg/dL Estimated GFR ML/MIN Glucose (74-106) mg/dL POC Glucometer 339 H 341 H (74 to 106) mg/dL Calcium (8.4-10.2) mg/dL Total Bilirubin (0.2-1.3) mg/dL AST (17-59) U/L ALT (0-50) U/L Alkaline Phosphatase (38-126) U/L Troponin I (0.000-0.034) ng/mL Serum Total Protein (6.3-8.2) g/dL Albumin (3.5-5.0) g/dL 11/08/21 11/08/21 Range/Units 04:35 06:58 WBC (4.0-10.5) x10^3/uL RBC (4.1-5.6) x10^6/uL Hgb (12.5-18.0) g/dL Hct (42-50) % MCV (78-100) fL MCH (26-32) pg MCHC (32-36) g/dL RDW (11.5-14.0) % Plt Count (150-450) x10^3/uL MPV (7.5-11.0) fL Gran % (36.0-66.0) % Immature Gran % (Auto) (0.00-0.4) % Nucleat RBC Rel Count (0.00-0.1) % Eos # (Auto) (0-0.5) x10^3/uL Immature Gran # (Auto) (0.00-0.03) x10^3u/L Absolute Lymphs (auto) (1.0-4.6) x10^3/uL Absolute Monos (auto) (0.0-1.3) x10^3/uL Absolute Nucleated RBC (0.00-0.01) x10^3u/L Lymphocytes % (24.0-44.0) % Monocytes % (0.0-12.0) % Eosinophils % (0.00-5.0) % Basophils % (0.0-0.4) % Absolute Granulocytes (1.4-6.9) x10^3/uL Basophils # (0-0.4) x10^3/uL Sodium 135 L (137-145) mmol/L Potassium 4.8 (3.5-5.1) mmol/L Chloride 98 (98-107) mmol/L Carbon Dioxide 28 (22-30) mmol/L Anion Gap 13.4 (5-15) MEQ/L BUN 24 H (9-20) mg/dL Creatinine 0.92 (0.66-1.25) mg/dL Estimated GFR > 60.0 ML/MIN Glucose 258 H (74-106) mg/dL POC Glucometer 303 H (74 to 106) mg/dL Calcium 8.8 (8.4-10.2) mg/dL Total Bilirubin 0.40 (0.2-1.3) mg/dL AST 89 H (17-59) U/L ALT 370 H (0-50) U/L Alkaline Phosphatase 201 H (38-126) U/L Troponin I (0.000-0.034) ng/mL Serum Total Protein 7.0 (6.3-8.2) g/dL Albumin 4.0 (3.5-5.0) g/dL Radiology Exams: Radiology Procedures Category Date Time Status CHEST 1 VIEW (PORTABLE) Stat Exams 11/07/21 03:04 Completed Multi-Disciplinary Progress Notes: Multi-Disciplinary Progress Notes 11/07/21 10:48 Case Management Note by Hellen Mclean S/W NURSE - SHE REPORTS PATIENT IS CURSING D/T THE PHONE RINGING- HE REPORTS HE IS NOT ANSWERING IT ANYMORE. WILL TRY TO DO CASE MANAGEMENT ASSESS TOMORROW Initialized on 11/07/21 10:48 - END OF NOTE Assessment/Plan (1) Pneumonia Current Visit: Yes Status: Acute Qualifiers: Pneumonia type: due to unspecified organism Laterality: right Lung location: unspecified part of lung Qualified Code(s): J18.9 - Pneumonia, unspecified organism Assessment & Plan: possibly, vs atelectasis. Pro-calcitonin is pending; if positive, will re-start zithromax and rocephin IV (1 dose given in ER). Code(s): J18.9 - PNEUMONIA, UNSPECIFIED ORGANISM (2) COVID-19 Current Visit: Yes Status: Acute Assessment & Plan: On IV remdesivir and dexamethasone, day #2. Code(s): U07.1 - COVID-19 (3) Elevated liver enzymes Current Visit: Yes Status: Acute Assessment & Plan: Mildly decreased from yesterday. AST/ALT 106/423. Code(s): R74.8 - ABNORMAL LEVELS OF OTHER SERUM ENZYMES (4) Hyperglycemia Current Visit: Yes Status: Acute Assessment & Plan: unsure if acute d/t steroids or more chronic - check a1c in a.m. Code(s): R73.9 - HYPERGLYCEMIA, UNSPECIFIED (5) Hypothyroidism Current Visit: Yes Status: Chronic Qualifiers: Hypothyroidism type: acquired Qualified Code(s): E03.9 - Hypothyroidism, u nspecified Assessment & Plan: Has not been on meds for several months - restarted them yesterday. Code(s): E03.9 - HYPOTHYROIDISM, UNSPECIFIED (6) Paroxysmal atrial fibrillation Current Visit: No Status: Chronic Assessment & Plan: On Eliquis. Code(s): I48.0 - PAROXYSMAL ATRIAL FIBRILLATION
[2021-11-08] MEDS: LYRICA 100MG PO SCH ×3 (09:42→21:36)
[2021-11-08] MEDS: ELIQUIS 2.5 MG TABLET PO SCH ×2 (09:42→21:36)
[2021-11-08] MEDS: ZOCOR 20MG PO SCH (09:42)
[2021-11-08] MEDS: Imdur 30 MG PO SCH (09:42)
[2021-11-08] MEDS: Requip 0.5 MG PO SCH ×2 (09:43→21:37)
[2021-11-08] MEDS: Protonix 40MG Tablet PO SCH ×2 (09:43→21:37)
[2021-11-08] MEDS: Cozaar 50 MG PO SCH (09:43)
[2021-11-08] MEDS: Cordarone 200 MG PO SCH (09:43)
[2021-11-08] MEDS: COREG 12.5 MG PO SCH ×2 (09:43→21:36)
[2021-11-08] MEDS: Decadron 4 MG INJ IV SCH ×2 (09:44→21:36)
[2021-11-08] MEDS: REMDESIVIR 100 MG in Sodium Chloride 0.9% 100 ML IV SCH (09:44)
[2021-11-08] MEDS ORDERED: NON-FORMULARY ITEM (Atorvastatin Calcium 20 MG Tab) PO SCH (10:00)
[2021-11-08] MEDS ORDERED: [UNRECOGNIZED DRUG - OTHER] IH SCH (10:00)
[2021-11-08] MEDS: VENTOLIN COMMON CANISTER IH PRN (19:33)
[2021-11-09 05:09] LABS: Absolute Neutrophil Ct (ANC) 7.83 x10^3/uL (1.4-6.9); Basophil (Absolute #) 0.02 x10^3/uL (0-0.4); Eosinophil % 0.1 % (0.00-5.0); Eosinophil (Absolute #) 0.01 x10^3/uL (0-0.5); Hematocrit 31.5 % (42-50); Hemoglobin 10.1 g/dL (12.5-18.0); Lymphocyte (Absolute #) 0.75 x10^3/uL (1.0-4.6); Lymphocytes % 8.2 % (24.0-44.0); Mean Cell Volume 96.3 fL (78-100); Mean Corpuscular Hemoglobin 30.9 pg (26-32); Mean Corpuscular Hgb Concent. 32.1 g/dL (32-36); Mean Platelet Volume 11.7 fL (7.5-11.0); Monocyte (Absolute #) 0.35 x10^3/uL (0.0-1.3); Monocytes % 3.8 % (0.0-12.0); Neutrophil % 85.1 % (36.0-66.0); Platelet Count 135 x10^3/uL (150-450); Red Blood Count 3.27 x10^6/uL (4.1-5.6); Red Cell Distribution Width 17.2 % (11.5-14.0); White Blood Count 9.2 x10^3/uL (4.0-10.5)
[2021-11-09 05:25] LABS: ALBUMIN 3.7 g/dL (3.5-5.0); ALKALINE PHOSPHATASE 167 U/L (38-126); ANION GAP 13.5 MEQ/L (5-15); BLOOD UREA NITROGEN 30 mg/dL (9-20); CHLORIDE 98 mmol/L (98-107); Calcium 8.7 mg/dL (8.4-10.2); Carbon Dioxide 26 mmol/L (22-30); Creatinine 1 0.96 mg/dL (0.66-1.25); EST GLOMERULAR FILTRATION RATE > 60.0 ML/MIN; Glucose 261 mg/dL (74-106); Potassium 4.6 mmol/L (3.5-5.1); SGOT/AST 66 U/L (17-59); SGPT/ALT 304 U/L (0-50); SODIUM 134 mmol/L (137-145); Total Protein 6.4 g/dL (6.3-8.2)
[2021-11-09] MEDS: SYNTHROID 50 MCG PO SCH (07:39)
[2021-11-09] MEDS: Cozaar 50 MG PO SCH (07:50)
[2021-11-09] MEDS: ELIQUIS 2.5 MG TABLET PO SCH (07:50)
[2021-11-09] MEDS: Imdur 30 MG PO SCH (07:50)
[2021-11-09] MEDS: Cordarone 200 MG PO SCH (07:50)
[2021-11-09] MEDS: COREG 12.5 MG PO SCH (07:50)
[2021-11-09] MEDS: Protonix 40MG Tablet PO SCH (07:50)
[2021-11-09] MEDS: ZOCOR 20MG PO SCH (07:50)
[2021-11-09] MEDS: Requip 0.5 MG PO SCH (07:50)
[2021-11-09] MEDS: VENTOLIN COMMON CANISTER IH PRN (07:50)
[2021-11-09] MEDS: HUMALOG SQ PRN (07:51)
[2021-11-09] MEDS: Decadron 4 MG INJ IV SCH (07:51)
[2021-11-09] MEDS: REMDESIVIR 100 MG in Sodium Chloride 0.9% 100 ML IV SCH (07:51)
[2021-11-09] MEDS: LYRICA 100MG PO SCH (07:51)
[2021-11-09 07:58] VITALS: BP 144/77; PULSE 61; O2SAT 93
--- NOTE | 2021-11-09 09:14 | PCM.DS ---
Discharge Summary Date of Admission: 11/07/21 08:22 Admitting Physician: YUMIKO KAY Primary Care Provider: YUMIKO KAY Allergies Allergies gabapentin [From Neurontin] Allergy (Severe, Verified 11/07/21 03:01) headaches escitalopram oxalate [From Lexapro] Allergy (Verified 11/07/21 03:01) Hospital Summary - Hospital Course Hospital Course: patient admitted with cough, shortness of breath, found to have covid-19 positive swab. he was recently released from [facility], symptoms had been present for several days prior to admission. he feels well, has minimal cough, no fever and no shortness of breath and wants to go home. received remdisivir infusion as well as decadron while maintaining his eliquis therapy - Vitals & Intake/Output Vital Signs: Vital Signs Temperature 97.5 F 11/09/21 07:58 Pulse Rate 61 11/09/21 07:58 Respiratory Rate 19 11/09/21 08:00 Blood Pressure 144/77 11/09/21 07:58 O2 Sat by Pulse Oximetry 93 L 11/09/21 07:58 Intake & Output: Intake & Output 11/06/21 11/07/21 11/08/21 11/09/21 11:59 11:59 11:59 11:59 Intake Total 480 1220 1680 Balance 480 1220 1680 Weight 80.7 kg 80.7 kg - Lab Result Diagrams: 11/09/21 05:01 11/09/21 05:01 Lab Results-Last 24 Hrs: Lab Results-Last 24 Hours 11/08/21 11/08/21 11/08/21 Range/Units 06:00 11:15 11:30 WBC (4.0-10.5) x10^3/uL RBC (4.1-5.6) x10^6/uL Hgb (12.5-18.0) g/dL Hct (42-50) % MCV (78-100) fL MCH (26-32) pg MCHC (32-36) g/dL RDW (11.5-14.0) % Plt Count (150-450) x10^3/uL MPV (7.5-11.0) fL Gran % (36.0-66.0) % Immature Gran % (Auto) (0.00-0.4) % Nucleat RBC Rel Count (0.00-0.1) % Eos # (Auto) (0-0.5) x10^3/uL Immature Gran # (Auto) (0.00-0.03) x10^3u/L Absolute Lymphs (auto) (1.0-4.6) x10^3/uL Absolute Monos (auto) (0.0-1.3) x10^3/uL Absolute Nucleated RBC (0.00-0.01) x10^3u/L Lymphocytes % (24.0-44.0) % Monocytes % (0.0-12.0) % Eosinophils % (0.00-5.0) % Basophils % (0.0-0.4) % Absolute Granulocytes (1.4-6.9) x10^3/uL Basophils # (0-0.4) x10^3/uL Sodium (137-145) mmol/L Potassium (3.5-5.1) mmol/L Chloride (98-107) mmol/L Carbon Dioxide (22-30) mmol/L Anion Gap (5-15) MEQ/L BUN (9-20) mg/dL Creatinine (0.66-1.25) mg/dL Estimated GFR ML/MIN Glucose 299 H (74-106) mg/dL POC Glucometer 298 H (74 to 106) mg/dL Hemoglobin A1c (4.5-6.0) % Calcium (8.4-10.2) mg/dL Total Bilirubin (0.2-1.3) mg/dL AST (17-59) U/L ALT (0-50) U/L Alkaline Phosphatase (38-126) U/L Serum Total Protein (6.3-8.2) g/dL Albumin (3.5-5.0) g/dL Procalcitonin 0.064 (0.030-0.080) ng/mL 11/08/21 11/08/21 11/08/21 Range/Units 14:05 15:29 16:34 WBC (4.0-10.5) x10^3/uL RBC (4.1-5.6) x10^6/uL Hgb (12.5-18.0) g/dL Hct (42-50) % MCV (78-100) fL MCH (26-32) pg MCHC (32-36) g/dL RDW (11.5-14.0) % Plt Count (150-450) x10^3/uL MPV (7.5-11.0) fL Gran % (36.0-66.0) % Immature Gran % (Auto) (0.00-0.4) % Nucleat RBC Rel Count (0.00-0.1) % Eos # (Auto) (0-0.5) x10^3/uL Immature Gran # (Auto) (0.00-0.03) x10^3u/L Absolute Lymphs (auto) (1.0-4.6) x10^3/uL Absolute Monos (auto) (0.0-1.3) x10^3/uL Absolute Nucleated RBC (0.00-0.01) x10^3u/L Lymphocytes % (24.0-44.0) % Monocytes % (0.0-12.0) % Eosinophils % (0.00-5.0) % Basophils % (0.0-0.4) % Absolute Granulocytes (1.4-6.9) x10^3/uL Basophils # (0-0.4) x10^3/uL Sodium (137-145) mmol/L Potassium (3.5-5.1) mmol/L Chloride (98-107) mmol/L Carbon Dioxide (22-30) mmol/L Anion Gap (5-15) MEQ/L BUN (9-20) mg/dL Creatinine (0.66-1.25) mg/dL Estimated GFR ML/MIN Glucose (74-106) mg/dL POC Glucometer 269 H 288 H 308 H (74 to 106) mg/dL Hemoglobin A1c (4.5-6.0) % Calcium (8.4-10.2) mg/dL Total Bilirubin (0.2-1.3) mg/dL AST (17-59) U/L ALT (0-50) U/L Alkaline Phosphatase (38-126) U/L Serum Total Protein (6.3-8.2) g/dL Albumin (3.5-5.0) g/dL Procalcitonin (0.030-0.080) ng/mL 0611/09/21 11/09/21 Range/Units 20:46 05:01 05:01 WBC 9.2 (4.0-10.5) x10^3/uL RBC 3.27 L (4.1-5.6) x10^6/uL Hgb 10.1 L (12.5-18.0) g/dL Hct 31.5 L (42-50) % MCV 96.3 (78-100) fL MCH 30.9 (26-32) pg MCHC 32.1 (32-36) g/dL RDW 17.2 H (11.5-14.0) % Plt Count 135 L (150-450) x10^3/uL MPV 11.7 H (7.5-11.0) fL Gran % 85.1 H (36.0-66.0) % Immature Gran % (Auto) 2.6 H (0.00-0.4) % Nucleat RBC Rel Count 0.0 (0.00-0.1) % Eos # (Auto) 0.01 (0-0.5) x10^3/uL Immature Gran # (Auto) 0.24 H (0.00-0.03) x10^3u/L Absolute Lymphs (auto) 0.75 L (1.0-4.6) x10^3/uL Absolute Monos (auto) 0.35 (0.0-1.3) x10^3/uL Absolute Nucleated RBC 0.00 (0.00-0.01) x10^3u/L Lymphocytes % 8.2 L (24.0-44.0) % Monocytes % 3.8 (0.0-12.0) % Eosinophils % 0.1 (0.00-5.0) % Basophils % 0.2 (0.0-0.4) % Absolute Granulocytes 7.83 H (1.4-6.9) x10^3/uL Basophils # 0.02 (0-0.4) x10^3/uL Sodium 134 L (137-145) mmol/L Potassium 4.6 (3.5-5.1) mmol/L Chloride 98 (98-107) mmol/L Carbon Dioxide 26 (22-30) mmol/L Anion Gap 13.5 (5-15) MEQ/L BUN 30 H (9-20) mg/dL Creatinine 0.96 (0.66-1.25) mg/dL Estimated GFR > 60.0 ML/MIN Glucose 261 H (74-106) mg/dL POC Glucometer 366 H (74 to 106) mg/dL Hemoglobin A1c (4.5-6.0) % Calcium 8.7 (8.4-10.2) mg/dL Total Bilirubin 0.40 (0.2-1.3) mg/dL AST 66 H (17-59) U/L ALT 304 H (0-50) U/L Alkaline Phosphatase 167 H (38-126) U/L Serum Total Protein 6.4 (6.3-8.2) g/dL Albumin 3.7 (3.5-5.0) g/dL Procalcitonin (0.030-0.080) ng/mL 11/09/21 11/09/21 Range/Units 05:01 07:45 WBC (4.0-10.5) x10^3/uL RBC (4.1-5.6) x10^6/uL Hgb (12.5-18.0) g/dL Hct (42-50) % MCV (78-100) fL MCH (26-32) pg MCHC (32-36) g/dL RDW (11.5-14.0) % Plt Count (150-450) x10^3/uL MPV (7.5-11.0) fL Gran % (36.0-66.0) % Immature Gran % (Auto) (0.00-0.4) % Nucleat RBC Rel Count (0.00-0.1) % Eos # (Auto) (0-0.5) x10^3/uL Immature Gran # (Auto) (0.00-0.03) x10^3u/L Absolute Lymphs (auto) (1.0-4.6) x10^3/uL Absolute Monos (auto) (0.0-1.3) x10^3/uL Absolute Nucleated RBC (0.00-0.01) x10^3u/L Lymphocytes % (24.0-44.0) % Monocytes % (0.0-12.0) % Eosinophils % (0.00-5.0) % Basophils % (0.0-0.4) % Absolute Granulocytes (1.4-6.9) x10^3/uL Basophils # (0-0.4) x10^3/uL Sodium (137-145) mmol/L Potassium (3.5-5.1) mmol/L Chloride (98-107) mmol/L Carbon Dioxide (22-30) mmol/L Anion Gap (5-15) MEQ/L BUN (9-20) mg/dL Creatinine (0.66-1.25) mg/dL Estimated GFR ML/MIN Glucose (74-106) mg/dL POC Glucometer 241 H (74 to 106) mg/dL Hemoglobin A1c 7.34 H (4.5-6.0) % Calcium (8.4-10.2) mg/dL Total Bilirubin (0.2-1.3) mg/dL AST (17-59) U/L ALT (0-50) U/L Alkaline Phosphatase (38-126) U/L Serum Total Protein (6.3-8.2) g/dL Albumin (3.5-5.0) g/dL Procalcitonin (0.030-0.080) ng/mL Micro Results-Entire Visit: Microbiology 11/07/21 03:15 Blood Culture - Preliminary Blood NO GROWTH TO DATE Accuchecks Date 11/09/21 Date 11/08/21 Date 11/08/21 Date 11/08/21 Time 07:58 Time 22:00 Time 11:30 - Procedures and Test Procedures and Tests throughout Hospitalization: Therapy Orders & Screens 11/07/21 03:44 Respiratory Therapy Assessment DAILY Comment: 11/07/21 08:27 Oxygen Nasal Cannula 3 lpm Comment: Discharge Exam General Appearance: no apparent distress Neurologic Exam: alert, oriented x 3 Respiratory Exam: normal breath sounds, lungs clear, No respiratory distress Cardiovascular Exam: regular rate/rhythm, normal heart sounds Gastrointestinal/Abdomen Exam: soft, No tenderness, No mass Extremity Exam: normal inspection, normal range of motion Skin Exam: normal color, warm, dry Final Diagnosis/Problem List - Final Discharge Diagnosis/Problem (1) COVID-19 Current Visit: Yes Status: Acute Code(s): U07.1 - COVID-19 (2) Hypothyroidism Current Visit: Yes Status: Chronic Assessment & Plan: restarted on synthroid due to patient noncompliance, will f/u Code(s): E03.9 - HYPOTHYROIDISM, UNSPECIFIED (3) Paroxysmal atrial fibrillation Current Visit: No Status: Chronic Code(s): I48.0 - PAROXYSMAL ATRIAL FIBRILLATION (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 - Discharge Disposition: Home, Self-Care Condition: Stable Prescriptions: New Dexamethasone [Decadron] 4 mg PO BID #10 tablet Levothyroxine Sodium 50 Mcg [Synthroid 50 Mcg] 50 mcg PO DAILY #30 tablet Continue Atorvastatin Calcium [Lipitor 20MG Tablet] 40 mg PO DAILY Metformin HCl 500 mg [Glucophage 500 MG] 500 mg PO BID Carvedilol 12.5 mg [Coreg 12.5 mg] 12.5 mg PO BID Omeprazole 20 MG [Prilosec 20 mg] 20 mg PO BID Pregabalin 50 mg [Lyrica 50MG] 100 mg PO TID #90 Fluticasone/Vilanterol [Breo Ellipta 100-25 Mcg INH] 1 each IH DAILY Albuterol Sulfate [Proventil Hfa] 6.7 gm IH Q4H PRN PRN Reason: Shortness Of Breath armodafiniL [Nuvigil] 200 mg PO BID Ropinirole HCl [Requip] 0.25 mg PO BID Albuterol 2.5 mg/3 ml Neb [Proventil 2.5 mg/3 ml Neb] 2.5 mg IH Q6H PRN PRN Reason: Shortness Of Breath Nitroglycerin 4.1 gm TL UD Losartan Potassium 50 mg [Cozaar 50 MG] 50 mg PO DAILY Isosorbide Mononitrate 30 mg [Imdur 30 MG] 30 mg PO DAILY Apixaban [Eliquis 5 mg Tablet] 5 mg PO BID #0 Hydrocodone/APAP 5/325 [Frannie 5/325 mg] 1 each PO Q6H PRN PRN #16 tablet MDD 4 PRN Reason: Pain Amiodarone HCl 200 mg [Cordarone 200 MG] 200 mg PO DAILY Follow up with: YUMIKO KAY MD [Primary Care Provider] -
== END 2021-11-09 11:06 | disposition home or self-care (01) ==
LOC: ED 02:59 → MED SURG 08:22
PROVIDERS: ADMIT Family Medicine; ATTEND Family Medicine
DX: U07.1 COVID-19 (principal); E03.9 Hypothyroidism, unspecified; I48.0 Paroxysmal atrial fibrillation; J18.9 Pneumonia, unspecified organism; R74.8 Abnormal levels of other serum enzymes; Q24.9 Congenital malformation of heart, unspecified; I10 Essential (primary) hypertension; I25.2 Old myocardial infarction; E11.9 Type 2 diabetes mellitus without complications; Z79.01 Long term (current) use of anticoagulants; Z79.899 Other long term (current) drug therapy; Z20.828 Contact with and (suspected) exposure to other viral communicable diseases; Z85.850 Personal history of malignant neoplasm of thyroid
CPT/HCPCS: 0241U; 36000; 36415; 36600; 71045; 80053; 81015; 82375; 82803; 82947; 83036; 83605; 83735; 83880; 84145; 84443; 84484; 85025; 87040; 93005; 93041; 94640; 94762; 96365; 96367; 96374; 99285; 99291; 93268; 96360; J0248; J0456; J0696; J1100; J1650; J1817; J1940; J2930; A9270-GY; G0378

== ENCOUNTER 2023-12-07 11:35 | Observation (INO) | payer BC, OTHER ==
--- NOTE | 2023-12-07 11:44 | ERPHSYRPT ---
- History of Present Illness Time Seen by Provider: 12/07/23 11:44 Source: patient Exam Limitations: no limitations Physician History: This is an obese 53-year-old white male patient of Dr. Kay who has a history of atrial fibrillation on Eliquis and amiodarone and presents with increasing shortness of breath over the last 2 to 3 days. He has had intermittent nonprod uctive cough as well. Patient denies chest pain. He has not had any nausea vomiting or diarrhea symptoms. He denies fevers. Patient is a former smoker of cigarettes. Patient has a history of gastroesophageal reflux disease, hypothyroidism, hypertension, hyperlipidemia and COPD. He is not oxygen dependent. His room air oxygen saturation level at the time my examination is 97%. Timing/Duration: day(s) (2 to 3 days), gradual onset, worse (Symptoms worsening) Severity of Dyspnea-Max: mild (Moderate) Severity of Dyspnea-Current: mild (To moderate) Possible Cause: occasional episodes Modifying Factors: Improves With: activity, coughing (Nonproductive) Associated Symptoms: intermittent, cough, No chest pain/discomfort, No wheezing Allergies/Adverse Reactions: gabapentin [From Neurontin] Allergy (Severe, Verified 12/07/23 11:38) headaches escitalopram oxalate [From Lexapro] Allergy (Verified 12/07/23 11:38) Home Medications: Atorvastatin Calcium [Lipitor 20MG Tablet] 40 mg PO DAILY 03/06/12 [History] Metformin HCl 500 mg [Glucophage 500 MG] 500 mg PO BID 03/06/12 [History] Carvedilol 12.5 mg [Coreg 12.5 mg] 12.5 mg PO BID 10/25/12 [History] Omeprazole 20 MG [Prilosec 20 mg] 20 mg PO BID 10/25/12 [History] Albuterol 2.5 mg/3 ml Neb [Proventil 2.5 mg/3 ml Neb] 2.5 mg IH Q6H PRN 09/10/15 [History] Albuterol Sulfate [Proventil Hfa] 6.7 gm IH Q4H PRN 09/10/15 [History] Fluticasone/Vilanterol [Breo Ellipta 100-25 Mcg Inhalr] 1 each IH DAILY 09/10/15 [History] Ropinirole HCl [Requip] 0.25 mg PO BID 09/10/15 [History] armodafiniL [Nuvigil] 200 mg PO BID 09/10/15 [History] Nitroglycerin 4.1 gm TL UD 12/28/15 [History] Isosorbide Mononitrate 30 mg [Imdur 30 MG] 30 mg PO DAILY 09/12/16 [History] Losartan Potassium 50 mg [Cozaar 50 MG] 50 mg PO DAILY 09/12/16 [History] Amiodarone HCl 200 mg [Cordarone 200 MG] 200 mg PO DAILY 11/07/21 [H istory] Hx Tetanus, Diphtheria Vaccination/Date Given: Yes Hx Influenza Vaccination/Date Given: Yes Hx Pneumococcal Vaccination/Date Given: Yes (2 years ago) Travel Risk - International Travel Have you traveled outside of the country in past 3 weeks: No - Emerging Infectious Disease Are you exhibiting symptoms associated with any current EIDs: Yes Symptoms: Cough: New Onset, Shortness of Breath - Review of Systems Constitutional: No Symptoms Eyes: No Symptoms Ears, Nose, & Throat: No Symptoms Respiratory: Cough, Dyspnea Cardiac: No Symptoms Abdominal/Gastrointestinal: No Symptoms Genitourinary Symptoms: No Symptoms Musculoskeletal: No Symptoms Skin: No Symptoms Neurological: No Symptoms Psychological: No Symptoms Endocrine: No Symptoms Hematologic/Lymphatic: No Symptoms Immunological/Allergic: No Symptoms All Other Systems: Reviewed and Negative - Past Medical History Pertinent Past Medical History: Yes Neurological History: Peripheral Neuropathy, TIA ENT History: No Pertinent History Cardiac History: High Cholesterol, Hypertension, Myocardial Infarction (MS) Respiratory History: COPD Endocrine Medical History: Diabetes Type II Musculoskeletal History: Arthritis GI Medical History: No Pertinent History History: No Pertinent History Psycho-Social History: Depression Male Reproductive Disorders: No Pertinent History Other Medical History: 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, 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, history of afib, NARCOLEPSY - Past Surgical History Past Surgical History: Yes (heart surgery) Neuro Surgical History: No Pertinent History Cardiac: Cardiac Catheterization Respiratory: No Pertinent History Gastrointestinal: Cholecystectomy, Hernia Repair Genitourinary: No Pertinent History Musculoskeletal: No Pertinent History Male Surgical History: No Pertinent History Other Surgical History: open heart at age 10 for valve replacement and repair of holes in heart, right shoulder, great toenails removed 08/13/15 - Social History Smoking Status: Former smoker How long have you smoked: 15 Exposure to second hand smoke: No Drug Use: none Patient Lives Alone: No - Nursing Vital Signs Nursing Vital Signs: Initial Vital Signs Temperature 96.3 F 12/07/23 11:39 Pulse Rate 118 H 12/07/23 11:39 Respiratory Rate 20 12/07/23 11:39 Blood Pressure 106/85 12/07/23 11:39 O2 Sat by Pulse Oximetry 97 12/07/23 11:39 Pain Scale Pain Intensity 0 - Physical Exam General Appearance: no apparent distress, alert, anxiety, obese Eye Exam: PERRL/EOMI, eyes nml inspection Ears, Nose, Throat Exam: hearing grossly normal, normal ENT inspection, normal pharynx Neck Exam: normal inspection, non-tender, supple, full range of motion Respiratory Exam: lungs clear, diminished breath sounds (Bilateral diffusely), No chest tenderness, No respiratory distress Cardiovascular/Chest Exam: normal peripheral pulses, tachycardia Abdominal/Gastrointestinal Exam: soft, normal bowel sounds, No tenderness Rectal Exam: not done Extremity Exam: non-tender, normal range of motion, normal inspection Neurologic Exam: alert, oriented x 3, cooperative, 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 as tested, nml cerebellar function, nml station & gait, sensation nml Skin Exam: normal color, warm, dry Lymphatic Exam: No adenopathy SpO2 Interpretation: normal O2 Delivery: Room Air - Course Nursing assessment & vital signs reviewed: Yes EKG Interpreted by Me: RATE (117), Sinus Tach, LAFB, Right Bundle Branch Block, Other (No acute ischemic changes on today's twelve-lead EKG.) Ordered Tests: Active Orders 24 hr Category Date Time Status Sign Wirer STAT Care 12/07/23 11:54 Active EKG-ER Only STAT Care 12/07/23 11:53 Active IV Insertion STAT Care 12/07/23 11:53 Active Pulse Oximetry (ED) STAT Care 12/07/23 11:53 Active CHEST 1 VIEW (PORTABLE) Stat Exams 12/07/23 11:54 Completed BLOOD CULTURE Stat Lab 12/07/23 12:50 Received CBC W DIFF Stat Lab 12/07/23 13:10 Completed CMP Stat Lab 12/07/23 13:10 Completed NT PRO BNPII Stat Lab 12/07/23 13:10 Completed PROTIME WITH INR Stat Lab 12/07/23 13:10 Completed TROPONIN Q4H Lab 12/07/23 13:10 Completed TROPONIN Q4H Lab 12/07/23 16:00 Ordered TROPONIN Q4H Lab 12/07/23 20:00 Ordered Medication Summary Discontinued Medications Generic Name Dose Route Start Last Admin Trade Name Lio PRN Reason Stop Dose Admin Methylprednisolone Sodium 0 mg 12/07/23 13:05 12/07/23 13:15 Succinate 125 mg/ Sterile IV 12/07/23 13:06 125 mg Water 2 ml STAT ONE Administration Furosemide 40 mg 12/07/23 13:46 12/07/23 13:55 Furosemide 40 Mg/4 Ml Vial IV 12/07/23 13:47 40 mg STAT ONE Administration Furosemide Confirm 12/07/23 13:53 Furosemide 40 Mg/4 Ml Vial Administered 12/07/23 13:54 Dose 40 mg .ROUTE .STK-MED ONE Ceftriaxone Sodium 1 gm in 100 mls @ 200 mls/hr 12/07/23 13:04 12/07/23 13:46 Rocephin 1 Gm / 100 Ml Nacl IV 12/07/23 13:33 Infused STAT ONE Infusion Ceftriaxone Sodium Confirm 12/07/23 13:11 Rocephin 1 Gm / 100 Ml Nacl Administered 12/07/23 13:12 Dose 1 gm in 100 mls @ ud IV .STK-MED ONE Methylprednisolone Sodium Succinate Confirm 12/07/23 13:10 Methylprednis Sod Succ 125 Mg/2 Ml Vial Administered 12/07/23 13:11 Dose 125 mg .ROUTE .STK-MED ONE Sterile Water Confirm 12/07/23 13:10 Water For Injection,Sterile 10 Ml Vial Administered 12/07/23 13:11 Dose 10 ml IJ .STK-MED ONE Lab/Rad Data: Laboratory Result Diagrams 12/07/23 13:10 12/07/23 13:10 Laboratory Results 12/07/23 12/07/23 12/07/23 Range/Units 13:10 13:10 13:10 WBC (4.23-9.07) x10^3/uL RBC (4.63-6.08) x10^6/uL Hgb (13.7-17.5) g/dL Hct (40.1-51.0) % MCV (79.0-92.2) fL MCH (25.7-32.2) pg MCHC (32.3-36.5) g/dL RDW (11.6-14.4) % Plt Count (163-337) x10^3/uL MPV (9.4-12.4) fL Gran % (34.0-67.9) % Immature Gran % (Auto) (0.001-0.429) % Nucleat RBC Rel Count (0.00-0.2) % Eos # (Auto) (0.04-0.54) x10^3/uL Immature Gran # (Auto) (0.001-0.031) x10^3u/L Absolute Lymphs (auto) (1.32-3.57) x10^3/uL Absolute Monos (auto) (0.30-0.82) x10^3/uL Absolute Nucleated RBC (0.00-0.012) x10^3u/L Lymphocytes % (21.8-53.1) % Monocytes % (5.3-12.2) % Eosinophils % (0.8-7.0) % Basophils % (0.2-1.2) % Absolute Granulocytes (1.78-5.38) x10^3/uL Basophils # (0.01-0.08) x10^3/uL PT 13.4 H (9.4-12.5) SECONDS INR 1.25 (0.8-3.0) Sodium 133 L (135-145) mmol/L Potassium 4.6 (3.5-5.1) mmol/L Chloride 101 (98-107) mmol/L Carbon Dioxide 21 L (22-30) mmol/L Anion Gap 16.2 H (5-15) MEQ/L BUN 22 H (9-20) mg/dL Creatinine 1.20 (0.66-1.25) mg/dL Estimated GFR 71.9 ML/MIN Glucose 128 H (74-106) mg/dL Calcium 9.1 (8.4-10.2) mg/dL Total Bilirubin 1.30 (0.2-1.3) mg/dL AST 523 H (17-59) U/L ALT 583 H (0-50) U/L Alkaline Phosphatase 101 (38-126) U/L Troponin I 0.075 H* (0.000-0.033) ng/mL NT-Pro-B Natriuret Pep 3670 (<300) pg/mL Serum Total Protein 7.1 (6.3-8.2) g/dL Albumin 4.3 (3.5-5.0) g/dL Influenza Type A Ag (NEGATIVE) Influenza Type B Ag (NEGATIVE) RSV (PCR) (NEGATIVE) SARS-CoV-2 (PCR) (NEGATIVE) 12/07/23 12/07/23 Range/Units 13:10 12:52 WBC 8.1 (4.23-9.07) x10^3/uL RBC 4.35 L (4.63-6.08) x10^6/uL Hgb 13.2 L (13.7-17.5) g/dL Hct 40.6 (40.1-51.0) % MCV 93.3 H (79.0-92.2) fL MCH 30.3 (25.7-32.2) pg MCHC 32.5 (32.3-36.5) g/dL RDW 15.5 H (11.6-14.4) % Plt Count 164 (163-337) x10^3/uL MPV 12.1 (9.4-12.4) fL Gran % 72.6 H (34.0-67.9) % Immature Gran % (Auto) 0.4 (0.001-0.429) % Nucleat RBC Rel Count 0.2 (0.00-0.2) % Eos # (Auto) 0.06 (0.04-0.54) x10^3/uL Immature Gran # (Auto) 0.03 (0.001-0.031) x10^3u/L Absolute Lymphs (auto) 1.74 (1.32-3.57) x10^3/uL Absolute Monos (auto) 0.34 (0.30-0.82) x10^3/uL Absolute Nucleated RBC 0.02 H (0.00-0.012) x10^3u/L Lymphocytes % 21.4 L (21.8-53.1) % Monocytes % 4.2 L (5.3-12.2) % Eosinophils % 0.7 L (0.8-7.0) % Basophils % 0.7 (0.2-1.2) % Absolute Granulocytes 5.89 H (1.78-5.38) x10^3/uL Basophils # 0.06 (0.01-0.08) x10^3/uL PT (9.4-12.5) SECONDS INR (0.8-3.0) Sodium (135-145) mmol/L Potassium (3.5-5.1) mmol/L Chloride (98-107) mmol/L Carbon Dioxide (22-30) mmol/L Anion Gap (5-15) MEQ/L BUN (9-20) mg/dL Creatinine (0.66-1.25) mg/dL Estimated GFR ML/MIN Glucose (74-106) mg/dL Calcium (8.4-10.2) mg/dL Total Bilirubin (0.2-1.3) mg/dL AST (17-59) U/L ALT (0-50) U/L Alkaline Phosphatase (38-126) U/L Troponin I (0.000-0.033) ng/mL NT-Pro-B Natriuret Pep (<300) pg/mL Serum Total Protein (6.3-8.2) g/dL Albumin (3.5-5.0) g/dL Influenza Type A Ag NEGATIVE (NEGATIVE) Influenza Type B Ag NEGATIVE (NEGATIVE) RSV (PCR) NEGATIVE (NEGATIVE) SARS-CoV-2 (PCR) NEGATIVE (NEGATIVE) - Progress Progress: improved, re-examined Air Movement: fair Progress Note: 12/07/23 12:18 My medical decision making and the assignment of moderate complexity to this patient's medical issue today is based on review of the patient's past medical history, review of patient's medication list, review of patient drug allergy list, history present illness and physical findings on examination. The workup includes placement of intravenous line, CBC, CMP, BNP, troponin level, twelve- lead EKG, chest x-ray, viral swabs. I did not order a D-dimer in this patient as this patient is on Eliquis/fully anticoagulated. Differential diagnosis includes but is not limited to pneumonia, arrhythmia, myocardial infarction, CHF and COPD exacerbations 12/07/23 13:06 The chest x-ray was interpreted by the radiologist and I reviewed the impression. The impression states new minimal left costophrenic angle infiltrate/atelectasis 12/07/23 14:29 I interpreted the patient's laboratory data results. The patient does have elevated liver transaminase levels. In reviewing old liver transaminase levels they were elevated as well. I am not finding any history of cirrhosis or alcohol liver disease in his past medical history. My initial thought was that this was related to his CHF or CHF exacerbation. Patient also has elevated troponin levels which may be related to the strain secondary to his CHF exacerbation. I spoke with Dr. Xiao, our telehospitalist on-call at this time. I reviewed the patient presenting complaint, physical findings on examination, vital signs and the results of our workup. He accepts the patient to be placed in o bservation. Blood Culture(s) Obtained: Yes Counseled pt/family regarding: lab results, diagnosis, need for follow-up, rad results Medical Desision Making - Diagnostic Testing Diagnostic test were ordered, analyzed, and reviewed by me: Yes - Departure Departure Disposition: Observation Clinical Impression: Shortness of breath, Left pulmonary infiltrate on CXR, CHF exacerbation, Elevated troponin, Elevated liver enzymes Condition: Stable Critical Care Time: No Referrals: YUMIKO KAY MD [Primary Care Provider] - Follow up/PCP as directed Instructions: Heart Failure
--- NOTE | 2023-12-07 12:17 | XRAY ---
Indication: Short of breath. Cough. Comparison: November 07, 2021 Portable chest demonstrates new minimal left costophrenic angle infiltrate/atelectasis. Remaining heart and lungs unremarkable. Bony thorax intact again with sternotomy wires and surgical clips base of neck.
[2023-12-07] MEDS ORDERED: Sterile H2O 10 ml IJ ONE (13:10)
[2023-12-07] MEDS ORDERED: solu-MEDROL ONE (13:10)
[2023-12-07] MEDS ORDERED: ROCEPHIN 1 GM / 100 ML NaCl 1 GM/100 ML IVPB IV ONE (13:11)
[2023-12-07] MEDS: solu-MEDROL 125 MG, Sterile H2O 10 ml 2 ML IV ONE (13:15)
[2023-12-07] MEDS: ROCEPHIN 1 GM / 100 ML NaCl 1 GM/100 ML IVPB IV ONE (13:16)
[2023-12-07 13:17] LABS: Absolute Neutrophil Ct (ANC) 5.89 x10^3/uL (1.78-5.38); BASOPHIL % 0.7 % (0.2-1.2); Basophil (Absolute #) 0.06 x10^3/uL (0.01-0.08); Eosinophil % 0.7 % (0.8-7.0); Eosinophil (Absolute #) 0.06 x10^3/uL (0.04-0.54); Hematocrit 40.6 % (40.1-51.0); Hemoglobin 13.2 g/dL (13.7-17.5); IMMATURE GRAN # 0.03 x10^3u/L (0.001-0.031); IMMATURE GRAN % 0.4 % (0.001-0.429); Lymphocyte (Absolute #) 1.74 x10^3/uL (1.32-3.57); Lymphocytes % 21.4 % (21.8-53.1); Mean Cell Volume 93.3 fL (79.0-92.2); Mean Corpuscular Hemoglobin 30.3 pg (25.7-32.2); Mean Corpuscular Hgb Concent. 32.5 g/dL (32.3-36.5); Mean Platelet Volume 12.1 fL (9.4-12.4); Monocyte (Absolute #) 0.34 x10^3/uL (0.30-0.82); Monocytes % 4.2 % (5.3-12.2); NUCLEATED RBC # 0.02 x10^3u/L (0.00-0.012); NUCLEATED RBC % 0.2 % (0.00-0.2); Neutrophil % 72.6 % (34.0-67.9); Platelet Count 164 x10^3/uL (163-337); Red Blood Count 4.35 x10^6/uL (4.63-6.08); Red Cell Distribution Width 15.5 % (11.6-14.4); White Blood Count 8.1 x10^3/uL (4.23-9.07)
[2023-12-07 13:31] LABS: ALBUMIN 4.3 g/dL (3.5-5.0); ANION GAP 16.2 MEQ/L (5-15); BILIRUBIN,TOTAL 1.3 mg/dL (0.2-1.3); Calcium 9.1 mg/dL (8.4-10.2); Creatinine 1 1.2 mg/dL (0.66-1.25); EST GLOMERULAR FILTRATION RATE 71.9 ML/MIN; INR 1.25 (0.8-3.0); PROTIME 13.4 SECONDS (9.4-12.5); Potassium 4.6 mmol/L (3.5-5.1); Total Protein 7.1 g/dL (6.3-8.2)
[2023-12-07 13:32] LABS: INFLUENZA A NEGATIVE (NEGATIVE); INFLUENZA B NEGATIVE (NEGATIVE); RESPIRATORY SYNCTIAL VIRUS NEGATIVE (NEGATIVE); SARS-CoV-2 Xpert Express NEGATIVE (NEGATIVE)
[2023-12-07] MEDS ORDERED: Lasix 40 MG/4 ML ONE (13:53)
[2023-12-07] MEDS: Lasix 40 MG/4 ML IV ONE (13:55)
[2023-12-07 14:11] LABS: TROPONIN 0.075 ng/mL (0.000-0.033)
--- NOTE | 2023-12-07 15:56 | PCM.HP ---
History of Present Illness - Chief Complaint Chief Complaint: Dyspnea/cough Date: 12/07/23 History of Present Illness: Mr. Wolf is a 53 year old male with a pmhx of TIA, peripheral neuropathy, HLD HTN, CA, COPD (RA at baseline), DMII, AFIB (Eliquis/amiodarone), and thyroid cancer s/p thyroidectomy who presented to ED 12/07/23 with a three day history of progressive dyspnea and a non-productive cough. Patient has a history of non- compliance with medications. He is unsure of what medications he is on currently - no fill history in the ext pharmacy. Patient states he does not take his thyroid medications as it causes narcolepsy. Family to bring in medication bot tles. Upon arrival to ED, patient tachycardic otherwise stable vitals. EKG Sinus tach (117) LAFB, RBBB, no acute ischemic changes. CXR demonstrates new minimal left costophrenic angle infiltrate/atelectasis. Labs remarkable for macrocytic anemia with hgb stable at 13.2, hyponatremic at 132, co2 at 21, Gap at 16.2, AST 523, ALT 583, initial trops x1 elevated at 0.075, and BNP 3670. Patient given Lasix, solumedrol, and ceftriaxone in ED. Admission for pneumonia and COPD exacerbation. Plan for continued IV abx with ceftriaxone/azithromycin and IV steroids. - Review of Systems Constitutional: No Symptoms Eyes: No Symptoms Ears, Nose, & Throat: No Symptoms Respiratory: Cough, Short Of Breath Cardiac: No Symptoms Abdominal/Gastrointestinal: No Symptoms Genitourinary Symptoms: No Symptoms Musculoskeletal: No Symptoms Skin: No Symptoms Neurological: No Symptoms Psychological: No Symptoms Endocrine: No Symptoms Hematologic/Lymphatic: No Symptoms Immunological/Allergic: No Symptoms Medications & Allergies Home Medications: Home Medication List Unobtainable 12/07/23 [History Confirmed 12/07/23] Allergies/Adverse Reactions: Allergies Allergy/AdvReac Type Severity Reaction Status Date / Time gabapentin [From Neurontin] Allergy Severe headaches Verified 12/07/23 11:38 escitalopram oxalate Allergy Verified 12/07/23 11:38 [From Lexapro] - Past Medical History Past Medical History: Yes Neurological History: Peripheral Neuropathy, TIA ENT History: No Pertinent History Cardiac History: High Cholesterol, Hypertension, Myocardial Infarction (CA) Respiratory History: COPD Endocrine Medical History: Diabetes Type II Musculoskelatal History: Arthritis GI Medical History: No Pertinent History History: No Pertinent History Pyscho-Social History: Depression Male Reproductive Disorders: No Pertinent History Comment: 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, 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, history of afib, NARCOLEPSY - Past Surgical History Past Surgical History: Yes (heart surgery) Neuro Surgical History: No Pertinent History Cardiac History: Cardiac Catheterization Respiratory Surgery: No Pertinent History GI Surgical History: Cholecystectomy, Hernia Repair Genitourinary Surgical Hx: No Pertinent History Musculskeletal Surgical Hx: No Pertinent History Male Surgical History: No Pertinent History Other Surgical History: open heart at age 10 for valve replacement and repair of holes in heart, right shoulder, great toenails removed 08/13/15 - Social History Smoking Status: Former smoker How long have you smoked: 15 Exposure to second hand smoke: No Alcohol: None Drug Use: none - Social Determinants of Health Will the patient participate in the screening: Declined to provide - Physical Exam Vital Signs: Vital Signs - 24 hr Temp Pulse Resp BP BP Pulse Ox 12/07/23 14:31 70 18 146/104 97 12/07/23 14:00 120 H 18 107/89 96 12/07/23 13:30 118 H 15 123/97 12/07/23 13:00 117 H 23 123/96 96 12/07/23 12:59 117 H 22 12/07/23 12:50 117 H 5 L 12/07/23 12:40 116 H 7 L 88 L 12/07/23 12:30 117 H 0 L 98 12/07/23 12:02 108 H 1 L 111/92 98 12/07/23 11:56 96 12/07/23 11:39 96.3 F 117 H 17 106/85 106/85 97 General Appearance: no apparent distress Neurologic Exam: alert, oriented x 3, cooperative Eye Exam: PERRL/EOMI Ears, Nose, Throat Exam: normal ENT inspection Neck Exam: normal inspection Respiratory Exam: diminished breath sounds, No respiratory distress Cardiovascular Exam: tachycardia Rectal Exam: deferred Back Exam: normal inspection Extremity Exam: other (BLE pitting > R 1+ pitting) Results - Labs Lab/Micro Results: Lab Results-Last 24 Hours 12/07/23 12/07/23 12/07/23 Range/Units 12:52 13:10 13:10 WBC 8.1 (4.23-9.07) x10^3/uL RBC 4.35 L (4.63-6.08) x10^6/uL Hgb 13.2 L (13.7-17.5) g/dL Hct 40.6 (40.1-51.0) % MCV 93.3 H (79.0-92.2) fL MCH 30.3 (25.7-32.2) pg MCHC 32.5 (32.3-36.5) g/dL RDW 15.5 H (11.6-14.4) % Plt Count 164 (163-337) x10^3/uL MPV 12.1 (9.4-12.4) fL Gran % 72.6 H (34.0-67.9) % Immature Gran % (Auto) 0.4 (0.001-0.429) % Nucleat RBC Rel Count 0.2 (0.00-0.2) % Eos # (Auto) 0.06 (0.04-0.54) x10^3/uL Immature Gran # (Auto) 0.03 (0.001-0.031) x10^3u/L Absolute Lymphs (auto) 1.74 (1.32-3.57) x10^3/uL Absolute Monos (auto) 0.34 (0.30-0.82) x10^3/uL Absolute Nucleated RBC 0.02 H (0.00-0.012) x10^3u/L Lymphocytes % 21.4 L (21.8-53.1) % Monocytes % 4.2 L (5.3-12.2) % Eosinophils % 0.7 L (0.8-7.0) % Basophils % 0.7 (0.2-1.2) % Absolute Granulocytes 5.89 H (1.78-5.38) x10^3/uL Basophils # 0.06 (0.01-0.08) x10^3/uL PT 13.4 H (9.4-12.5) SECONDS INR 1.25 (0.8-3.0) Sodium (135-145) mmol/L Potassium (3.5-5.1) mmol/L Chloride (98-107) mmol/L Carbon Dioxide (22-30) mmol/L Anion Gap (5-15) MEQ/L BUN (9-20) mg/dL Creatinine (0.66-1.25) mg/dL Estimated GFR ML/MIN Glucose (74-106) mg/dL Calcium (8.4-10.2) mg/dL Total Bilirubin (0.2-1.3) mg/dL AST (17-59) U/L ALT (0-50) U/L Alkaline Phosphatase (38-126) U/L Troponin I (0.000-0.033) ng/mL NT-Pro-B Natriuret Pep (<300) pg/mL Serum Total Protein (6.3-8.2) g/dL Albumin (3.5-5.0) g/dL Influenza Type A Ag NEGATIVE (NEGATIVE) Influenza Type B Ag NEGATIVE (NEGATIVE) RSV (PCR) NEGATIVE (NEGATIVE) SARS-CoV-2 (PCR) NEGATIVE (NEGATIVE) 12/07/23 12/07/23 Range/Units 13:10 13:10 WBC (4.23-9.07) x10^3/uL RBC (4.63-6.08) x10^6/uL Hgb (13.7-17.5) g/dL Hct (40.1-51.0) % MCV (79.0-92.2) fL MCH (25.7-32.2) pg MCHC (32.3-36.5) g/dL RDW (11.6-14.4) % Plt Count (163-337) x10^3/uL MPV (9.4-12.4) fL Gran % (34.0-67.9) % Immature Gran % (Auto) (0.001-0.429) % Nucleat RBC Rel Count (0.00-0.2) % Eos # (Auto) (0.04-0.54) x10^3/uL Immature Gran # (Auto) (0.001-0.031) x10^3u/L Absolute Lymphs (auto) (1.32-3.57) x10^3/uL Absolute Monos (auto) (0.30-0.82) x10^3/uL Absolute Nucleated RBC (0.00-0.012) x10^3u/L Lymphocytes % (21.8-53.1) % Monocytes % (5.3-12.2) % Eosinophils % (0.8-7.0) % Basophils % (0.2-1.2) % Absolute Granulocytes (1.78-5.38) x10^3/uL Basophils # (0.01-0.08) x10^3/uL PT (9.4-12.5) SECONDS INR (0.8-3.0) Sodium 133 L (135-145) mmol/L Potassium 4.6 (3.5-5.1) mmol/L Chloride 101 (98-107) mmol/L Carbon Dioxide 21 L (22-30) mmol/L Anion Gap 16.2 H (5-15) MEQ/L BUN 22 H (9-20) mg/dL Creatinine 1.20 (0.66-1.25) mg/dL Estimated GFR 71.9 ML/MIN Glucose 128 H (74-106) mg/dL Calcium 9.1 (8.4-10.2) mg/dL Total Bilirubin 1.30 (0.2-1.3) mg/dL AST 523 H (17-59) U/L ALT 583 H (0-50) U/L Alkaline Phosphatase 101 (38-126) U/L Troponin I 0.075 H* (0.000-0.033) ng/mL NT-Pro-B Natriuret Pep 3670 (<300) pg/mL Serum Total Protein 7.1 (6.3-8.2) g/dL Albumin 4.3 (3.5-5.0) g/dL Influenza Type A Ag (NEGATIVE) Influenza Type B Ag (NEGATIVE) RSV (PCR) (NEGATIVE) SARS-CoV-2 (PCR) (NEGATIVE) - Radiology Impressions Radiology Exams & Impressions: Radiology Procedures Category Date Time Status CHEST 1 VIEW (PORTABLE) Stat Exams 12/07/23 11:54 Completed - Other Procedures and Tests Respiratory Therapy 12/07/23 15:27 EKG REPEAT IN AM Respiratory Therapy Consult ONCE Assessment/Plan (1) Pneumonia Current Visit: Yes Status: Acute Assessment & Plan: -CXR demonstrates new minimal left costophrenic angle infiltrate/atelectasis -RA at baseline - supplemental oxygen with spo2 goal > 92% -RT eval -nebs/bronchodilator -Ceftriaxone started in ED, will continue -add azithromycin -procal -respiratory viral panel Code(s): J18.9 - PNEUMONIA, UNSPECIFIED ORGANISM (2) COPD exacerbation Current Visit: No Status: Acute Assessment & Plan: -most likely secondary to pneumonia - see plan Code(s): J44.1 - CHRONIC OBSTRUCTIVE PULMONARY DISEASE W (ACUTE) EXACERBATION (3) Paroxysmal A-fib Current Visit: Yes Status: Acute Assessment & Plan: -Patient reports that he is on eliquis/amiodarone unsure of dosing, no fill history - family to bring in medications -Tele Code(s): I48.0 - PAROXYSMAL ATRIAL FIBRILLATION (4) Hypothyroidism associated with surgical procedure Current Visit: Yes Status: Acute Assessment & Plan: -TSH level -Patient states he does not take his thyroid medication Code(s): E89.0 - POSTPROCEDURAL HYPOTHYROIDISM (5) Type 2 diabetes mellitus Current Visit: Yes Status: Acute Assessment & Plan: -A1c -ADA diet -SSI (6) HLD (hyperlipidemia) Current Visit: Yes Status: Acute Assessment & Plan: -continue home meds once they are reconciled Code(s): E78.5 - HYPERLIPIDEMIA, UNSPECIFIED (7) HTN (hypertension) Current Visit: Yes Status: Acute Assessment & Plan: -continue home medications when available -hydralazine prn for sbp >180 DBP >100 Code(s): I10 - ESSENTIAL (PRIMARY) HYPERTENSION (8) Transaminitis Current Visit: No Status: Acute Assessment & Plan: -hepatitis panel -appears chronic from past lab work -trend -iron profile with ferritin -pt/inr -Lipid Code(s): R74.01 - ELEVATION OF LEVELS OF LIVER TRANSAMINASE LEVELS
[2023-12-07] MEDS: Zithromax 500 MG/ 250 ML NaCl Premix 500 MG/250 ML IVPB IV SCH (16:23)
[2023-12-07] MEDS: TYLENOL 325 MG PO PRN (18:30)
[2023-12-07] MEDS: DUONEB 0.5-3 MG/3 ml Neb IH SCH (19:00)
[2023-12-07 20:14] LABS: Iron 124 ug/dL (49-181); Iron Saturation 31 % (20-39); TIBC 405 ug/dL (261-497)
[2023-12-07 21:14] LABS: Folate (Folic Acid) 11.2 ng/mL (2.76 - >20); PROCALCITONIN 0.117 ng/mL (0.030-0.080); TSH, 3RD Generation 44.432 mIU/L (0.470-4.680)
[2023-12-07] MEDS: Mucinex 600MG ER Tabs PO SCH (21:30)
[2023-12-07] MEDS: HUMALOG SQ PRN (21:31)
[2023-12-07] MEDS: solu-MEDROL 40 MG, Sterile H2O 10 ml 1 ML IV SCH (21:31)
[2023-12-08 05:49] LABS: Absolute Neutrophil Ct (ANC) 8.55 x10^3/uL (1.78-5.38); BASOPHIL % 0.1 % (0.2-1.2); Basophil (Absolute #) 0.01 x10^3/uL (0.01-0.08); Eosinophil (Absolute #) 0 x10^3/uL (0.04-0.54); Hematocrit 37.8 % (40.1-51.0); Hemoglobin 12.9 g/dL (13.7-17.5); IMMATURE GRAN # 0.05 x10^3u/L (0.001-0.031); IMMATURE GRAN % 0.5 % (0.001-0.429); Lymphocyte (Absolute #) 0.94 x10^3/uL (1.32-3.57); Lymphocytes % 9.7 % (21.8-53.1); Mean Cell Volume 90.4 fL (79.0-92.2); Mean Corpuscular Hemoglobin 30.9 pg (25.7-32.2); Mean Corpuscular Hgb Concent. 34.1 g/dL (32.3-36.5); Mean Platelet Volume 12.1 fL (9.4-12.4); Monocyte (Absolute #) 0.11 x10^3/uL (0.30-0.82); Monocytes % 1.1 % (5.3-12.2); Neutrophil % 88.6 % (34.0-67.9); Platelet Count 190 x10^3/uL (163-337); Red Blood Count 4.18 x10^6/uL (4.63-6.08); Red Cell Distribution Width 14.8 % (11.6-14.4); White Blood Count 9.7 x10^3/uL (4.23-9.07)
[2023-12-08 06:04] LABS: ALBUMIN 4.9 g/dL (3.5-5.0); ANION GAP 18.3 MEQ/L (5-15); BILIRUBIN,TOTAL 0.8 mg/dL (0.2-1.3); Calcium 9.2 mg/dL (8.4-10.2); Creatinine 1 1.36 mg/dL (0.66-1.25); EST GLOMERULAR FILTRATION RATE 61.8 ML/MIN; Potassium 4.1 mmol/L (3.5-5.1); Total Protein 8.1 g/dL (6.3-8.2)
[2023-12-08] MEDS: ROCEPHIN 1 GM / 100 ML NaCl 1 GM/100 ML IVPB IV SCH (10:25)
--- NOTE | 2023-12-08 10:52 | PCM.NOTE ---
Date and Time: 12/08/23 1044 Subjective Assessment: HPI: Mr. Wolf is a 53 year old male with a pmhx of TIA, peripheral neuropathy, HLD HTN, SD, COPD (RA at baseline), DMII, AFIB (Eliquis/amiodarone), and thyroid cancer s/p thyroidectomy who presented to ED 12/07/23 with a three day history of progressive dyspnea and a non-productive cough. Patient has a history of non- compliance with medications. He is unsure of what medications he is on currently - no fill history in the ext pharmacy. Patient states he does not take his thyroid medications as it causes narcolepsy. Family to bring in medication bottles. Upon arrival to ED, patient tachycardic otherwise stable vitals. EKG Sinus tach (117) LAFB, RBBB, no acute ischemic changes. CXR demonstrates new minimal left costophrenic angle infiltrate/atelectasis. Labs remarkable for macrocytic anemia with hgb stable at 13.2, hyponatremic at 132, co2 at 21, Gap at 16.2, AST 523, ALT 583, initial trops x1 elevated at 0.075, and BNP 3670. Patient given Lasix, solumedrol, and ceftriaxone in ED. Admission for pneumonia and COPD exacerbation. Plan for continued IV abx with ceftriaxone/azithromycin and IV steroids. 12/08/23: Met with patient bedside. Endorses improvement with dyspnea. HR elevated in the 120's - patient asymptomic with this. Patient unsure of medication regimen as stated above but states he takes coreg and eliquis at home for his AFIB. TSH level is also elevated - patient state he felt the synthroid made him have narcolepsy but is willing to resume it. Will resume BB, eliquis, and synthroid today. Continue abx. Switch to PO steroid. Denies fever,cough, sob, cp, abdominal pain, AYALA, dizziness, N/V/D. - Review of Systems Constitutional: No Symptoms Eyes: No Symptoms Ears, Nose, & Throat: No Symptoms Respiratory: Short Of Breath Cardiac: No Symptoms Abdominal/Gastrointestinal: No Symptoms Genitourinary Symptoms: No Symptoms Musculoskeletal: No Symptoms Skin: No Symptoms Neurological: No Symptoms Psychological: No Symptoms Endocrine: No Symptoms Hematologic/Lymphatic: No Symptoms Immunological/Allergic: No Symptoms Objective Exam General Appearance: no apparent distress Neurologic Exam: alert, oriented x 3, cooperative Skin Exam: normal color Eye Exam: PERRL Ears, Nose, Throat Exam: moist mucous membranes Neck Exam: normal inspection Respiratory Exam: crackles/rales Cardiovascular Exam: tachycardia Gastrointestinal/Abdomen Exam: soft, normal bowel sounds Extremity Exam: normal inspection Back Exam: normal inspection Male Genitalia Exam: deferred Rectal Exam: deferred Objective Data Vital Signs: Vital Signs - 24 hr Temp Pulse Resp BP BP Pulse Ox 12/08/23 08:00 97.6 F 123 H 20 132/95 94 L 12/08/23 07:52 122 H 18 98 12/08/23 04:00 97.6 F 123 H 18 112/66 96 12/08/23 00:00 97.8 F 116 H 18 118/65 96 12/07/23 20:00 97.5 F 109 H 18 113/66 97 12/07/23 19:00 103 H 18 93 L 12/07/23 16:06 94 L 12/07/23 16:05 120 H 18 97 12/07/23 15:28 96.0 F 113 H 28 H 151/74 94 L 12/07/23 14:31 70 18 146/104 97 12/07/23 14:00 120 H 18 107/89 96 12/07/23 13:30 118 H 15 123/97 12/07/23 13:00 117 H 23 123/96 96 12/07/23 12:59 117 H 22 12/07/23 12:50 117 H 5 L 12/07/23 12:40 116 H 7 L 88 L 12/07/23 12:30 117 H 0 L 98 12/07/23 12:02 108 H 1 L 111/92 98 12/07/23 11:56 96 12/07/23 11:39 96.3 F 117 H 17 106/85 106/85 97 Pain Assessment - Last Documented Pain Intensity 0 Pain Scale Used 0-10 Pain Scale Intake and Output: Intake & Output 12/05/23 12/06/23 12/07/23 12/08/23 11:59 11:59 11:59 11:59 Intake Total 1600 Balance 1600 Weight 75.3 kg 76.4 kg Lab Results: Lab Results-Last 24 Hours 12/07/23 12/07/23 12/07/23 Range/Units 12:52 13:10 13:10 WBC 8.1 (4.23-9.07) x10^3/uL RBC 4.35 L (4.63-6.08) x10^6/uL Hgb 13.2 L (13.7-17.5) g/dL Hct 40.6 (40.1-51.0) % MCV 93.3 H (79.0-92.2) fL MCH 30.3 (25.7-32.2) pg MCHC 32.5 (32.3-36.5) g/dL RDW 15.5 H (11.6-14.4) % Plt Count 164 (163-337) x10^3/uL MPV 12.1 (9.4-12.4) fL Gran % 72.6 H (34.0-67.9) % Immature Gran % (Auto) 0.4 (0.001-0.429) % Nucleat RBC Rel Count 0.2 (0.00-0.2) % Eos # (Auto) 0.06 (0.04-0.54) x10^3/uL Immature Gran # (Auto) 0.03 (0.001-0.031) x10^3u/L Absolute Lymphs (auto) 1.74 (1.32-3.57) x10^3/uL Absolute Monos (auto) 0.34 (0.30-0.82) x10^3/uL Absolute Nucleated RBC 0.02 H (0.00-0.012) x10^3u/L Lymphocytes % 21.4 L (21.8-53.1) % Monocytes % 4.2 L (5.3-12.2) % Eosinophils % 0.7 L (0.8-7.0) % Basophils % 0.7 (0.2-1.2) % Absolute Granulocytes 5.89 H (1.78-5.38) x10^3/uL Basophils # 0.06 (0.01-0.08) x10^3/uL PT 13.4 H (9.4-12.5) SECONDS INR 1.25 (0.8-3.0) Sodium (135-145) mmol/L Potassium (3.5-5.1) mmol/L Chloride (98-107) mmol/L Carbon Dioxide (22-30) mmol/L Anion Gap (5-15) MEQ/L BUN (9-20) mg/dL Creatinine (0.66-1.25) mg/dL Estimated GFR ML/MIN Glucose (74-106) mg/dL POC Glucometer (74 to 106) mg/dL Hemoglobin A1c (4.5-6.0) % Calcium (8.4-10.2) mg/dL Iron (49-181) ug/dL TIBC (261-497) ug/dL Iron Saturation (20-39) % Ferritin (17.9-464) ng/mL Total Bilirubin (0.2-1.3) mg/dL AST (17-59) U/L ALT (0-50) U/L Alkaline Phosphatase (38-126) U/L Troponin I (0.000-0.033) ng/mL NT-Pro-B Natriuret Pep (<300) pg/mL Serum Total Protein (6.3-8.2) g/dL Albumin (3.5-5.0) g/dL Vitamin B12 (239-931) pg/mL Folic Acid (2.76 - >20) ng/mL Procalcitonin (0.030-0.080) ng/mL TSH 3rd Generation (0.470-4.680) mIU/L Influenza Type A Ag NEGATIVE (NEGATIVE) Influenza Type B Ag NEGATIVE (NEGATIVE) RSV (PCR) NEGATIVE (NEGATIVE) SARS-CoV-2 (PCR) NEGATIVE (NEGATIVE) 12/07/23 12/07/23 12/07/23 Range/Units 13:10 13:10 13:10 WBC (4.23-9.07) x10^3/uL RBC (4.63-6.08) x10^6/uL Hgb (13.7-17.5) g/dL Hct (40.1-51.0) % MCV (79.0-92.2) fL MCH (25.7-32.2) pg MCHC (32.3-36.5) g/dL RDW (11.6-14.4) % Plt Count (163-337) x10^3/uL MPV (9.4-12.4) fL Gran % (34.0-67.9) % Immature Gran % (Auto) (0.001-0.429) % Nucleat RBC Rel Count (0.00-0.2) % Eos # (Auto) (0.04-0.54) x10^3/uL Immature Gran # (Auto) (0.001-0.031) x10^3u/L Absolute Lymphs (auto) (1.32-3.57) x10^3/uL Absolute Monos (auto) (0.30-0.82) x10^3/uL Absolute Nucleated RBC (0.00-0.012) x10^3u/L Lymphocytes % (21.8-53.1) % Monocytes % (5.3-12.2) % Eosinophils % (0.8-7.0) % Basophils % (0.2-1.2) % Absolute Granulocytes (1.78-5.38) x10^3/uL Basophils # (0.01-0.08) x10^3/uL PT (9.4-12.5) SECONDS INR (0.8-3.0) Sodium 133 L (135-145) mmol/L Potassium 4.6 (3.5-5.1) mmol/L Chloride 101 (98-107) mmol/L Carbon Dioxide 21 L (22-30) mmol/L Anion Gap 16.2 H (5-15) MEQ/L BUN 22 H (9-20) mg/dL Creatinine 1.20 (0.66-1.25) mg/dL Estimated GFR 71.9 ML/MIN Glucose 128 H (74-106) mg/dL POC Glucometer (74 to 106) mg/dL Hemoglobin A1c 6.80 H (4.5-6.0) % Calcium 9.1 (8.4-10.2) mg/dL Iron (49-181) ug/dL TIBC (261-497) ug/dL Iron Saturation (20-39) % Ferritin (17.9-464) ng/mL Total Bilirubin 1.30 (0.2-1.3) mg/dL AST 523 H (17-59) U/L ALT 583 H (0-50) U/L Alkaline Phosphatase 101 (38-126) U/L Troponin I 0.075 H* (0.000-0.033) ng/mL NT-Pro-B Natriuret Pep 3670 (<300) pg/mL Serum Total Protein 7.1 (6.3-8.2) g/dL Albumin 4.3 (3.5-5.0) g/dL Vitamin B12 (239-931) pg/mL Folic Acid (2.76 - >20) ng/mL Procalcitonin (0.030-0.080) ng/mL TSH 3rd Generation (0.470-4.680) mIU/L Influenza Type A Ag (NEGATIVE) Influenza Type B Ag (NEGATIVE) RSV (PCR) (NEGATIVE) SARS-CoV-2 (PCR) (NEGATIVE) 12/07/23 12/07/23 12/07/23 Range/Units 16:10 16:26 19:45 WBC (4.23-9.07) x10^3/uL RBC (4.63-6.08) x10^6/uL Hgb (13.7-17.5) g/dL Hct (40.1-51.0) % MCV (79.0-92.2) fL MCH (25.7-32.2) pg MCHC (32.3-36.5) g/dL RDW (11.6-14.4) % Plt Count (163-337) x10^3/uL MPV (9.4-12.4) fL Gran % (34.0-67.9) % Immature Gran % (Auto) (0.001-0.429) % Nucleat RBC Rel Count (0.00-0.2) % Eos # (Auto) (0.04-0.54) x10^3/uL Immature Gran # (Auto) (0.001-0.031) x10^3u/L Absolute Lymphs (auto) (1.32-3.57) x10^3/uL Absolute Monos (auto) (0.30-0.82) x10^3/uL Absolute Nucleated RBC (0.00-0.012) x10^3u/L Lymphocytes % (21.8-53.1) % Monocytes % (5.3-12.2) % Eosinophils % (0.8-7.0) % Basophils % (0.2-1.2) % Absolute Granulocytes (1.78-5.38) x10^3/uL Basophils # (0.01-0.08) x10^3/uL PT (9.4-12.5) SECONDS INR (0.8-3.0) Sodium (135-145) mmol/L Potassium (3.5-5.1) mmol/L Chloride (98-107) mmol/L Carbon Dioxide (22-30) mmol/L Anion Gap (5-15) MEQ/L BUN (9-20) mg/dL Creatinine (0.66-1.25) mg/dL Estimated GFR ML/MIN Glucose (74-106) mg/dL POC Glucometer 149 H (74 to 106) mg/dL Hemoglobin A1c (4.5-6.0) % Calcium (8.4-10.2) mg/dL Iron (49-181) ug/dL TIBC (261-497) ug/dL Iron Saturation (20-39) % Ferritin (17.9-464) ng/mL Total Bilirubin (0.2-1.3) mg/dL AST (17-59) U/L ALT (0-50) U/L Alkaline Phosphatase (38-126) U/L Troponin I 0.064 H* 0.051 H* (0.000-0.033) ng/mL NT-Pro-B Natriuret Pep (<300) pg/mL Serum Total Protein (6.3-8.2) g/dL Albumin (3.5-5.0) g/dL Vitamin B12 (239-931) pg/mL Folic Acid (2.76 - >20) ng/mL Procalcitonin (0.030-0.080) ng/mL TSH 3rd Generation (0.470-4.680) mIU/L Influenza Type A Ag (NEGATIVE) Influenza Type B Ag (NEGATIVE) RSV (PCR) (NEGATIVE) SARS-CoV-2 (PCR) (NEGATIVE) 12/07/23 12/07/23 12/07/23 Range/Units 19:45 19:45 20:51 WBC (4.23-9.07) x10^3/uL RBC (4.63-6.08) x10^6/uL Hgb (13.7-17.5) g/dL Hct (40.1-51.0) % MCV (79.0-92.2) fL MCH (25.7-32.2) pg MCHC (32.3-36.5) g/dL RDW (11.6-14.4) % Plt Count (163-337) x10^3/uL MPV (9.4-12.4) fL Gran % (34.0-67.9) % Immature Gran % (Auto) (0.001-0.429) % Nucleat RBC Rel Count (0.00-0.2) % Eos # (Auto) (0.04-0.54) x10^3/uL Immature Gran # (Auto) (0.001-0.031) x10^3u/L Absolute Lymphs (auto) (1.32-3.57) x10^3/uL Absolute Monos (auto) (0.30-0.82) x10^3/uL Absolute Nucleated RBC (0.00-0.012) x10^3u/L Lymphocytes % (21.8-53.1) % Monocytes % (5.3-12.2) % Eosinophils % (0.8-7.0) % Basophils % (0.2-1.2) % Absolute Granulocytes (1.78-5.38) x10^3/uL Basophils # (0.01-0.08) x10^3/uL PT (9.4-12.5) SECONDS INR (0.8-3.0) Sodium (135-145) mmol/L Potassium (3.5-5.1) mmol/L Chloride (98-107) mmol/L Carbon Dioxide (22-30) mmol/L Anion Gap (5-15) MEQ/L BUN (9-20) mg/dL Creatinine (0.66-1.25) mg/dL Estimated GFR ML/MIN Glucose (74-106) mg/dL POC Glucometer 246 H (74 to 106) mg/dL Hemoglobin A1c (4.5-6.0) % Calcium (8.4-10.2) mg/dL Iron 124 (49-181) ug/dL TIBC 405 (261-497) ug/dL Iron Saturation 31 (20-39) % Ferritin 147 (17.9-464) ng/mL Total Bilirubin (0.2-1.3) mg/dL AST (17-59) U/L ALT (0-50) U/L Alkaline Phosphatase (38-126) U/L Troponin I (0.000-0.033) ng/mL NT-Pro-B Natriuret Pep (<300) pg/mL Serum Total Protein (6.3-8.2) g/dL Albumin (3.5-5.0) g/dL Vitamin B12 794 (239-931) pg/mL Folic Acid 11.2 (2.76 - >20) ng/mL Procalcitonin 0.117 H (0.030-0.080) ng/mL TSH 3rd Generation 44.432 H (0.470-4.680) mIU/L Influenza Type A Ag (NEGATIVE) Influenza Type B Ag (NEGATIVE) RSV (PCR) (NEGATIVE) SARS-CoV-2 (PCR) (NEGATIVE) 12/08/23 12/08/23 12/08/23 Range/Units 05:30 05:30 07:02 WBC 9.7 H (4.23-9.07) x10^3/uL RBC 4.18 L (4.63-6.08) x10^6/uL Hgb 12.9 L (13.7-17.5) g/dL Hct 37.8 L (40.1-51.0) % MCV 90.4 (79.0-92.2) fL MCH 30.9 (25.7-32.2) pg MCHC 34.1 (32.3-36.5) g/dL RDW 14.8 H (11.6-14.4) % Plt Count 190 (163-337) x10^3/uL MPV 12.1 (9.4-12.4) fL Gran % 88.6 H (34.0-67.9) % Immature Gran % (Auto) 0.5 H (0.001-0.429) % Nucleat RBC Rel Count 0.0 (0.00-0.2) % Eos # (Auto) 0 L (0.04-0.54) x10^3/uL Immature Gran # (Auto) 0.05 H (0.001-0.031) x10^3u/L Absolute Lymphs (auto) 0.94 L (1.32-3.57) x10^3/uL Absolute Monos (auto) 0.11 L (0.30-0.82) x10^3/uL Absolute Nucleated RBC 0.00 (0.00-0.012) x10^3u/L Lymphocytes % 9.7 L (21.8-53.1) % Monocytes % 1.1 L (5.3-12.2) % Eosinophils % 0.0 L (0.8-7.0) % Basophils % 0.1 L (0.2-1.2) % Absolute Granulocytes 8.55 H (1.78-5.38) x10^3/uL Basophils # 0.01 (0.01-0.08) x10^3/uL PT (9.4-12.5) SECONDS INR (0.8-3.0) Sodium 134 L (135-145) mmol/L Potassium 4.1 (3.5-5.1) mmol/L Chloride 94 L (98-107) mmol/L Carbon Dioxide 25 (22-30) mmol/L Anion Gap 18.3 H (5-15) MEQ/L BUN 30 H (9-20) mg/dL Creatinine 1.36 H (0.66-1.25) mg/dL Estimated GFR 61.8 ML/MIN Glucose 239 H (74-106) mg/dL POC Glucometer 206 H (74 to 106) mg/dL Hemoglobin A1c (4.5-6.0) % Calcium 9.2 (8.4-10.2) mg/dL Iron (49-181) ug/dL TIBC (261-497) ug/dL Iron Saturation (20-39) % Ferritin (17.9-464) ng/mL Total Bilirubin 0.80 (0.2-1.3) mg/dL AST 305 H (17-59) U/L ALT 488 H (0-50) U/L Alkaline Phosphatase 115 (38-126) U/L Troponin I (0.000-0.033) ng/mL NT-Pro-B Natriuret Pep 4930 (<300) pg/mL Serum Total Protein 8.1 (6.3-8.2) g/dL Albumin 4.9 (3.5-5.0) g/dL Vitamin B12 (239-931) pg/mL Folic Acid (2.76 - >20) ng/mL Procalcitonin (0.030-0.080) ng/mL TSH 3rd Generation (0.470-4.680) mIU/L Influenza Type A Ag (NEGATIVE) Influenza Type B Ag (NEGATIVE) RSV (PCR) (NEGATIVE) SARS-CoV-2 (PCR) (NEGATIVE) Radiology Exams: Radiology Procedures Category Date Time Status CHEST 1 VIEW (PORTABLE) Stat Exams 12/07/23 11:54 Completed ECHO W/2D AND DOPPLER [US] Stat Exams 12/07/23 16:15 Taken LIVER OR SPLEEN [US] Routine Exams 12/10/23 07:16 Ordered Multi-Disciplinary Progress Notes: Multi-Disciplinary Progress Notes 12/08/23 01:02 Respiratory Note by Linda Simmons Pt requested to not be woken up for 1am tx if he is asleep. RT checked on pt at 0100. Pt was sleeping at this time. Scheduled tx not given. [place] notified. Initialized on 12/08/23 01:02 - END OF NOTE Assessment/Plan (1) Pneumonia Current Visit: Yes Status: Acute Assessment & Plan: -CXR demonstrates new minimal left costophrenic angle infiltrate/atelectasis -RA at baseline - supplemental oxygen with spo2 goal > 92% -RT eval -nebs/bronchodilator -Ceftriaxone started in ED, will continue -add azithromycin -procal -respiratory viral panel 12/07: -Continue above management Code(s): J18.9 - PNEUMONIA, UNSPECIFIED ORGANISM (2) COPD exacerbation Current Visit: No Status: Acute Assessment & Plan: -most likely secondary to pneumonia - see plan Code(s): J44.1 - CHRONIC OBSTRUCTIVE PULMONARY DISEASE W (ACUTE) EXACERBATION (3) Paroxysmal A-fib Current Visit: Yes Status: Acute Assessment & Plan: -Patient reports that he is on eliquis/amiodarone unsure of dosing, no fill history - family to bring in medications -Tele 12/07: -Patient unable to obtain his medications - unsure if he is taking anything at home - HR elevated to 120's today -Metoprolol 25mg daily -Eliquis Code(s): I48.0 - PAROXYSMAL ATRIAL FIBRILLATION (4) Hypothyroidism associated with surgical procedure Current Visit: Yes Status: Acute Assessment & Plan: -TSH level -Patient states he does not take his thyroid medication 12/07: -Patient willing to resume synthroid, will start at 50mcg for now- will need follow up with PCP for re-eval Code(s): E89.0 - POSTPROCEDURAL HYPOTHYROIDISM (5) Type 2 diabetes mellitus Current Visit: Yes Status: Acute Assessment & Plan: -A1c -ADA diet -SSI 12/07: -A1c at 6.8 -will continue SSI while here -patient states he takes Janumet at home -unsure of dosing -Will have CM look into help with medications (6) HLD (hyperlipidemia) Current Visit: Yes Status: Acute Assessment & Plan: -continue home meds once they are reconciled Code(s): E78.5 - HYPERLIPIDEMIA, UNSPECIFIED (7) HTN (hypertension) Current Visit: Yes Status: Acute Assessment & Plan: -continue home medications when available -hydralazine prn for sbp >180 DBP >100 Code(s): I10 - ESSENTIAL (PRIMARY) HYPERTENSION (8) Transaminitis Current Visit: No Status: Acute Assessment & Plan: -hepatitis panel -appears chronic from past lab work -trend -iron profile with ferritin -pt/inr -Lipid 12/07: -trending down -US liver scheduled for Sunday -lipid pending -iron/ferritin okay Code(s): J18.9 - PNEUMONIA, UNSPECIFIED ORGANISM (2) COPD exacerbation Current Visit: No Status: Acute Code(s): J44.1 - CHRONIC OBSTRUCTIVE PULMONARY DISEASE W (ACUTE) EXACERBATION (3) Paroxysmal A-fib Current Visit: Yes Status: Acute Code(s): I48.0 - PAROXYSMAL ATRIAL FIBRILLATION (4) Hypothyroidism associated with surgical procedure Current Visit: Yes Status: Acute Code(s): E89.0 - POSTPROCEDURAL HYPOTHYROIDISM (5) Type 2 diabetes mellitus Current Visit: Yes Status: Acute (6) HLD (hyperlipidemia) Current Visit: Yes Status: Acute Code(s): E78.5 - HYPERLIPIDEMIA, UNSPECI FIED (7) HTN (hypertension) Current Visit: Yes Status: Acute Code(s): I10 - ESSENTIAL (PRIMARY) HYPERTEN BIANCA (8) Transaminitis Current Visit: No Status: Acute Code(s): R74.01 - ELEVATION OF LEVELS OF LIVER TRANSAMINASE LEVELS
[2023-12-08] MEDS: SYNTHROID 50 MCG PO SCH (11:21)
[2023-12-08] MEDS: Toprol-Xl 25MG Tablets PO SCH (11:21)
[2023-12-08] MEDS: ELIQUIS 2.5 MG TABLET PO SCH (11:21)
[2023-12-08] MEDS: LOPRESSOR INJECTION IV ONE (11:37)
[2023-12-08] MEDS: Zofran 4 MG/2 ML VIAL IV PRN (13:16)
[2023-12-08 14:04] LABS: A-aADO2 91; ABG HEMOGLOBIN 12.8; ABG POTASSIUM 4.7 (3.5-5.1); ARTERIAL BLD GAS O2 SATURATION 99.1 % (95-100); ARTERIAL BLOOD GAS BASE EXCESS -7.9 (-2.0-2.0); ARTERIAL BLOOD GAS FIO2 36 %; ARTERIAL BLOOD GAS PO2 141 mmHg (75-100); ARTERIAL BLOOD GAS pH 7.45 (7.35-7.45); CARBOXYHEMOGLOBIN 6.4 % THgb (0.0-6.9); HCO3- 13.9 (22-28); Lactic Acid 3.7 (0.4-2.0); Methhemoglobin 0.9 % (1.4-1.5); paO2 pAO1 0.61
[2023-12-08 14:05] LABS: ABG SITE RIGHT RADIAL; ALLEN TEST OK? YES; ARTERIAL BLOOD GAS PCO2 20 mmHg (35-45)
--- NOTE | 2023-12-08 15:22 | XRAY ---
CLINICAL HISTORY: CP COMPARISON: None. TECHNIQUE: X-ray of the chest, AP view. FINDINGS: Sternotomy wires were noted suggesting previous surgery. A radiographic examination of the chest demonstrates clear lungs. Normal configuration of the mediastinum. The sheba are normal in size and position. The cardiac size is enlarged with an unfolded aorta. The bony thorax is unremarkable. The costophrenic and cardiophrenic angles are clear. IMPRESSION: 1. No pulmonary consolidation or collapse was detected. 2. Cardiomegally for further assessment. Electronically Signed by: Deon Dalton MD. (12/08/2023 15:18:33 EDT)
[2023-12-08] MEDS ORDERED: MORPHINE SULFATE 2 MG INJ IV PRN (15:24)
--- NOTE | 2023-12-08 15:55 | PCM.CONS ---
History of Present Illness - Date of Consult Date of Encounter: 12/08/23 Consulting Flight Hostess: YULIYA TAFOYA MD Requesting Provider: Attending Provider: BREONNA LARA MD Primary Care Provider: PCP: YUMIKO KAY - Consult Narrative Reason for Consult: Chest Pain HPI: Patient is a 53M who is admitted for pneumonia and heart failure. Called today due to concerns for chest pain and hypotension. The patient was diaphoretic. Earlier in the AM he had received IV metoprolol 5 mg x 1 dose for sinus tachycardia with a heart rate of 130 bpm. A rapid response was called---no IV could be established. ECG was obtained. Sinus rhythm with nonspecific IVCD and ST segment depression. CXR demonstrated a new left lower lobe infiltrate and cardiomegaly. Troponins remained elevated and stable. cc:: The requesting physician will be sent a copy of the consult. 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, history of afib, NARCOLEPSY - Past Surgical History Past Surgical History: Yes (heart surgery) Neuro Surgical History: No Pertinent History Cardiac History: Cardiac Catheterization Respiratory Surgery: No Pertinent History GI Surgical History: Cholecystectomy, Hernia Repair Genitourinary Surgical Hx: No Pertinent History Musculskeletal Surgical Hx: No Pertinent History Male Surgical History: No Pertinent History Other Surgical History: open heart at age 10 for valve replacement and repair of holes in heart, right shoulder, great toenails removed 08/13/15 - Social History Smoking Status: Former smoker How long have you smoked: 15 Exposure to second hand smoke: No Alcohol: None Drug Use: none - Social Determinants of Health Will the patient participate in the screening: Declined to provide Do you worry about a steady place to live?: No Do you have any problems with any of the following?: No known problems In the past 12 months,have you had to go without utilities?: No Have you or anyone in your house had to go without enough: No Transportation Issues: No Has anyone in your support network made you feel unsafe?: No Does the patient want assistance with any of the above?: No Medications & Allergies Home Medications: Home Medication List Unobtainable 12/07/23 [History Confirmed 12/07/23] Allergies/Adverse Reactions: Allergies Allergy/AdvReac Type Severity Reaction Status Date / Time gabapentin [From Neurontin] Allergy Severe headaches Verified 12/07/23 11:38 escitalopram oxalate Allergy Verified 12/07/23 11:38 [From Lexapro] Exam - Vitals Vital Signs: Vital Signs - 24 hr Temp Pulse Resp BP Pulse Ox 12/08/23 14:38 99 12/08/23 11:43 97.3 F 129 H 21 128/98 97 12/08/23 08:00 97.6 F 123 H 20 132/95 94 L 12/08/23 07:52 122 H 18 98 12/08/23 04:00 97.6 F 123 H 18 112/66 96 12/08/23 00:00 97.8 F 116 H 18 118/65 96 12/07/23 20:00 97.5 F 109 H 18 113/66 97 12/07/23 19:00 103 H 18 93 L 12/07/23 16:06 94 L 12/07/23 16:05 120 H 18 97 SpO2: 99 Results Vital Signs: Vital Signs - 24 hr Temp Pulse Resp BP Pulse Ox 12/08/23 14:38 99 12/08/23 11:43 97.3 F 129 H 21 128/98 97 12/08/23 08:00 97.6 F 123 H 20 132/95 94 L 12/08/23 07:52 122 H 18 98 12/08/23 04:00 97.6 F 123 H 18 112/66 96 12/08/23 00:00 97.8 F 116 H 18 118/65 96 12/07/23 20:00 97.5 F 109 H 18 113/66 97 12/07/23 19:00 103 H 18 93 L 12/07/23 16:06 94 L 12/07/23 16:05 120 H 18 97 Pain Assessment - Last Documented Pain Intensity 0 Pain Scale Used 0-10 Pain Scale Intake and Output: Intake & Output 12/06/23 12/07/23 12/08/23 12/09/23 11:59 11:59 11:59 11:59 Intake Total 1600 240 Balance 1600 240 Weight 75.3 kg 76.4 kg LAB: I have reviewed the Labs in [employer]. Radiology Exams: Radiology Procedures Category Date Time Status CHEST 1 VIEW (PORTABLE) Stat Exams 12/07/23 11:54 Completed CHEST 1 VIEW (PORTABLE) Stat Exams 12/08/23 14:00 Completed CHEST WITH CONTRAST [CT] Stat Exams 12/08/23 13:29 Ordered ECHO W/2D AND DOPPLER [US] Stat Exams 12/07/23 16:15 Taken LIVER OR SPLEEN [US] Routine Exams 12/10/23 07:16 Ordered X-ray Interpretation: pending, report reviewed by me Multi-Disciplinary Progress Notes: Multi-Disciplinary Progress Notes 12/08/23 01:02 Respiratory Note by Linda Simmons Pt requested to not be woken up for 1am tx if he is asleep. RT checked on pt at 0100. Pt was sleeping at this time. Scheduled tx not given. [place]. Initialized on 12/08/23 01:02 - END OF NOTE Assessment & Plan (1) Chest pain Current Visit: No Status: Acute Qualifiers: Chest pain type: unspecified Qualified Code(s): R07.9 - Chest pain, unspecified Assessment & Plan: Chest pain unlikely to be ACS. There is no significant ST segment elevation or depression. Troponin mild at 0.08. No infiltrates on CXR. - ECG PRN for chest pain - Troponin q6h - Avoid IV metoprolol given sepsis - Treatment of pneumonia - Keep MAP>60 - obtain echocardiogram - ASA 325 mg x 1 Heart Failure: chronic - no evidence of pulmonary edema - con Code(s): R07.9 - CHEST PAIN, UNSPECIFIED (2) CHF exacerbation Current Visit: Yes Status: Acute Qualifiers: Heart failure type: systolic Qualified Code(s): I50.23 - Acute on chronic systolic (congestive) heart failure Assessment & Plan: Acute on chronic systolic and diastolic heart failure - LVEF 5-10% - Severely depressed EF - IV Metoprolol was given which could tip him into cardiogenic shock - Hypotensive - Requires transfer to tertiary center for higher level of care. - avoid beta blockers and calcium channel blockers - If Afib with rates >130 AND hypotensive give amiodarone. - Needs ischemic evaluation and cardiac cath. Code(s): I50.9 - HEART FAILURE, UNSPECIFIED (3) Paroxysmal A-fib Current Visit: Yes Status: Acute Code(s): I48.0 - PAROXYSMAL ATRIAL FIBRILLATION - Encounter Encounter: "The entirety of this encounter was performed via Telemedicine using audio and visual "
--- NOTE | 2023-12-08 17:26 | XRAY ---
CLINICAL HISTORY: central line placement- femoral COMPARISON: None, TECHNIQUE: X-ray pelvis AP single view. FINDINGS: Normal bone density is noted. No osseous lesion is noted. No fracture or dislocation is noted . Left sided femoral line is noted. The tip of the line is noted in the midline at level of L5 transverse process. Non specific bowel gas pattern is noted in the covered abdomen. IMPRESSION: Left sided femoral line is noted. The tip of the line is noted in the midline at level of L5 transverse process. No soft tissue and bone abnormality noted. DISCLAIMER:A subtle bone abnormality or fracture may not be readily apparent on x-rays, thus clinical correlation and further imaging including follow up CT, MRI, or follow up x-rays are advised as needed. Electronically Signed by: Deon Dalton MD. (12/08/2023 17:22:00 EDT)
[2023-12-08 17:31] VITALS: PULSE 112; TEMP 97.5
--- NOTE | 2023-12-08 18:04 | PCM.DS ---
Discharge Summary Date of Admission: 12/07/23 15:25 Date of Discharge: 12/08/23 Admitting Physician: BREONNA LARA MD Primary Care Provider: YUMIKO KAY GLORIA Allergies Allergies gabapentin [From Neurontin] Allergy (Severe, Verified 12/07/23 11:38) headaches escitalopram oxalate [From Lexapro] Allergy (Verified 12/07/23 11:38) Hospital Summary - Hospital Course Hospital Course: Mr. Wolf is a 53 year old male with a pmhx of TIA, peripheral neuropathy, HLD HTN, [place], COPD (RA at baseline), DMII, AFIB (Eliquis/amiodarone), and thyroid cancer s/p thyroidectomy who presented to ED 12/07/23 with a three day history of progressive dyspnea and a non-productive cough. Patient has a history of non- compliance with medications. He is unsure of what medications he is on currently - no fill history in the ext pharmacy. Patient states he does not take his t hyroid medications as it causes narcolepsy. Family to bring in medication bottles. Upon arrival to ED, patient tachycardic otherwise stable vitals. EKG Sinus tach (117) LAFB, RBBB, no acute ischemic changes. CXR demonstrates new minimal left costophrenic angle infiltrate/atelectasis. Labs remarkable for macrocytic anemia with hgb stable at 13.2, hyponatremic at 132, co2 at 21, Gap at 16.2, AST 523, ALT 583, initial trops x1 elevated at 0.075, and BNP 3670. Patient given Lasix, solumedrol, and ceftriaxone in ED. Admission for pneumonia and COPD exacerbation.IP treatment with IV abx with ceftriaxone/azithromycin and IV steroids. Patient was quite stable when seen this am. He took a shower and developed a fib with RVR. He had dyspnea and chest pain. Cxray showed no change. EKG showed mild ST depression. Troponin went up slightly. CTA of chest was ordered and was pending. There was a problem with IV access and anesthesiology was consulted to place an IV. Cardiology was consulted and they reported to us that the patient's echo showed an EF of 5% and he recommends transfer. We have talked to cardiology and they have agreed to accept patient. Patient is agreeable to transfer. Discharge Note Latest Assessment & Plan (1) Pneumonia Current Visit: Yes Status: Acute Assessment & Plan: -CXR demonstrates new minimal left costophrenic angle infiltrate/atelectasis -RA at baseline - supplemental oxygen with spo2 goal > 92% -RT eval -nebs/bronchodilator -Ceftriaxone started in ED, will continue -add azithromycin -procal -respiratory viral panel 12/07: -Continue above management Code(s): J18.9 - PNEUMONIA, UNSPECIFIED ORGANISM Chest pain -RR called - Cardiology consulted - note reviewed - echo reported verbally with LVEF 5-10% -recommending transfer to tertiary center for higher level of care- transfer accepted -- If Afib with rates >130 AND hypotensive give amiodarone. (2) COPD exacerbation Current Visit: No Status: Acute Assessment & Plan: -most likely secondary to pneumonia - see plan Code(s): J44.1 - CHRONIC OBSTRUCTIVE PULMONARY DISEASE W (ACUTE) EXACERBATION (3) Paroxysmal A-fib Current Visit: Yes Status: Acute Assessment & Plan: -Patient reports that he is on eliquis/amiodarone unsure of dosing, no fill history - family to bring in medications -Tele 12/07: -Patient unable to obtain his medications - unsure if he is taking anything at home - HR elevated to 120's today -Metoprolol 25mg daily -Eliquis Code(s): I48.0 - PAROXYSMAL ATRIAL FIBRILLATION (4) Hypothyroidism associated with surgical procedure Current Visit: Yes Status: Acute Assessment & Plan: -TSH level -Patient states he does not take his thyroid medication 12/07: -Patient willing to resume synthroid, will start at 50mcg for now- will need follow up with PCP for re-eval Code(s): E89.0 - POSTPROCEDURAL HYPOTHYROIDISM (5) Type 2 diabetes mellitus Current Visit: Yes Status: Acute Assessment & Plan: -A1c -ADA diet -SSI 12/07: -A1c at 6.8 -will continue SSI while here -patient states he takes Janumet at home -unsure of dosing -Will have CM look into help with medications (6) HLD (hyperlipidemia) Current Visit: Yes Status: Acute Assessment & Plan: -continue home meds once they are reconciled Code(s): E78.5 - HYPERLIPIDEMIA, UNSPECIFIED (7) HTN (hypertension) Current Visit: Yes Status: Acute Assessment & Plan: -continue home medications when available -hydralazine prn for sbp >180 DBP >100 Code(s): I10 - ESSENTIAL (PRIMARY) HYPERTENSION (8) Transaminitis Current Visit: No Status: Acute Assessment & Plan: -hepatitis panel -appears chronic from past lab work -trend -iron profile with ferritin -pt/inr -Lipid 12/07: -trending down -US liver scheduled for Sunday -lipid pending -iron/ferritin okay I spent 35 minutes [id number] with the patient on the day of discharge performing discharge exam, discussing hospital stay and discharge instructions with patient and caregivers, preparation of discharge records, prescriptions & referral forms and addressing any questions/concerns the patient had as document ed above. - Vitals & Intake/Output Vital Signs: Vital Signs Temperature 97.5 F 12/08/23 16:00 Pulse Rate 112 H 12/08/23 16:00 Respiratory Rate 22 12/08/23 16:00 Blood Pressure 133/102 12/08/23 16:00 O2 Sat by Pulse Oximetry 99 12/08/23 16:10 Intake & Output: Intake & Output 12/06/23 12/07/23 12/08/23 12/09/23 11:59 11:59 11:59 11:59 Intake Total 1600 240 Balance 1600 240 Weight 75.3 kg 76.4 kg - Lab Result Diagrams: 12/08/23 05:30 12/08/23 05:30 Lab Results-Last 24 Hrs: Lab Results-Last 24 Hours 12/07/23 12/07/23 12/07/23 Range/Units 19:45 19:45 19:45 WBC (4.23-9.07) x10^3/uL RBC (4.63-6.08) x10^6/uL Hgb (13.7-17.5) g/dL Hct (40.1-51.0) % MCV (79.0-92.2) fL MCH (25.7-32.2) pg MCHC (32.3-36.5) g/dL RDW (11.6-14.4) % Plt Count (163-337) x10^3/uL MPV (9.4-12.4) fL Gran % (34.0-67.9) % Immature Gran % (Auto) (0.001-0.429) % Nucleat RBC Rel Count (0.00-0.2) % Eos # (Auto) (0.04-0.54) x10^3/uL Immature Gran # (Auto) (0.001-0.031) x10^3u/L Absolute Lymphs (auto) (1.32-3.57) x10^3/uL Absolute Monos (auto) (0.30-0.82) x10^3/uL Absolute Nucleated RBC (0.00-0.012) x10^3u/L Lymphocytes % (21.8-53.1) % Monocytes % (5.3-12.2) % Eosinophils % (0.8-7.0) % Basophils % (0.2-1.2) % Absolute Granulocytes (1.78-5.38) x10^3/uL Basophils # (0.01-0.08) x10^3/uL D-Dimer (0.0-0.50) mg/L Puncture Site pCO2 (35-45) mmHg pO2 (75-100) mmHg Base Excess (-2.0-2.0) O2 Saturation (94-100) g/dF ABG pH (7.35-7.45) ABG HCO3 (22-28) ABG O2 Sat (Measured) (95-100) % Martell Test A-a Gradient a/A Ratio Hemoglobin Carboxyhemoglobin (0.0-6.9) % THgb Methemoglobin (1.4-1.5) % Temperature C POC O2 Flow Rate % Sodium (135-145) mmol/L Potassium (3.5-5.1) mmol/L Chloride (98-107) mmol/L Carbon Dioxide (22-30) mmol/L Anion Gap (5-15) MEQ/L BUN (9-20) mg/dL Creatinine (0.66-1.25) mg/dL Estimated GFR ML/MIN Glucose (74-106) mg/dL POC Glucometer (74 to 106) mg/dL Lactic Acid (0.4-2.0) Calcium (8.4-10.2) mg/dL Iron 124 (49-181) ug/dL TIBC 405 (261-497) ug/dL Iron Saturation 31 (20-39) % Ferritin 147 (17.9-464) ng/mL Total Bilirubin (0.2-1.3) mg/dL AST (17-59) U/L ALT (0-50) U/L Alkaline Phosphatase (38-126) U/L Troponin I 0.051 H* (0.000-0.033) ng/mL NT-Pro-B Natriuret Pep (<300) pg/mL Serum Total Protein (6.3-8.2) g/dL Albumin (3.5-5.0) g/dL Triglycerides (30-150) mg/dL Cholesterol (50-200) mg/dL LDL Cholesterol (30-100) mg/dL HDL Cholesterol (40-60) mg/dL Heart Disease Risk Ratio Vitamin B12 794 (239-931) pg/mL Folic Acid 11.2 (2.76 - >20) ng/mL Procalcitonin 0.117 H (0.030-0.080) ng/mL TSH 3rd Generation 44.432 H (0.470-4.680) mIU/L 12/07/23 12/08/23 12/08/23 Range/Units 20:51 05:30 05:30 WBC 9.7 H (4.23-9.07) x10^3/uL RBC 4.18 L (4.63-6.08) x10^6/uL Hgb 12.9 L (13.7-17.5) g/dL Hct 37.8 L (40.1-51.0) % MCV 90.4 (79.0-92.2) fL MCH 30.9 (25.7-32.2) pg MCHC 34.1 (32.3-36.5) g/dL RDW 14.8 H (11.6-14.4) % Plt Count 190 (163-337) x10^3/uL MPV 12.1 (9.4-12.4) fL Gran % 88.6 H (34.0-67.9) % Immature Gran % (Auto) 0.5 H (0.001-0.429) % Nucleat RBC Rel Count 0.0 (0.00-0.2) % Eos # (Auto) 0 L (0.04-0.54) x10^3/uL Immature Gran # (Auto) 0.05 H (0.001-0.031) x10^3u/L Absolute Lymphs (auto) 0.94 L (1.32-3.57) x10^3/uL Absolute Monos (auto) 0.11 L (0.30-0.82) x10^3/uL Absolute Nucleated RBC 0.00 (0.00-0.012) x10^3u/L Lymphocytes % 9.7 L (21.8-53.1) % Monocytes % 1.1 L (5.3-12.2) % Eosinophils % 0.0 L (0.8-7.0) % Basophils % 0.1 L (0.2-1.2) % Absolute Granulocytes 8.55 H (1.78-5.38) x10^3/uL Basophils # 0.01 (0.01-0.08) x10^3/uL D-Dimer (0.0-0.50) mg/L Puncture Site pCO2 (35-45) mmHg pO2 (75-100) mmHg Base Excess (-2.0-2.0) O2 Saturation (94-100) g/dF ABG pH (7.35-7.45) ABG HCO3 (22-28) ABG O2 Sat (Measured) (95-100) % Martell Test A-a Gradient a/A Ratio Hemoglobin Carboxyhemoglobin (0.0-6.9) % THgb Methemoglobin (1.4-1.5) % Temperature C POC O2 Flow Rate % Sodium 134 L (135-145) mmol/L Potassium 4.1 (3.5-5.1) mmol/L Chloride 94 L (98-107) mmol/L Carbon Dioxide 25 (22-30) mmol/L Anion Gap 18.3 H (5-15) MEQ/L BUN 30 H (9-20) mg/dL Creatinine 1.36 H (0.66-1.25) mg/dL Estimated GFR 61.8 ML/MIN Glucose 239 H (74-106) mg/dL POC Glucometer 246 H (74 to 106) mg/dL Lactic Acid (0.4-2.0) Calcium 9.2 (8.4-10.2) mg/dL Iron (49-181) ug/dL TIBC (261-497) ug/dL Iron Saturation (20-39) % Ferritin (17.9-464) ng/mL Total Bilirubin 0.80 (0.2-1.3) mg/dL AST 305 H (17-59) U/L ALT 488 H (0-50) U/L Alkaline Phosphatase 115 (38-126) U/L Troponin I (0.000-0.033) ng/mL NT-Pro-B Natriuret Pep 4930 (<300) pg/mL Serum Total Protein 8.1 (6.3-8.2) g/dL Albumin 4.9 (3.5-5.0) g/dL Triglycerides (30-150) mg/dL Cholesterol (50-200) mg/dL LDL Cholesterol (30-100) mg/dL HDL Cholesterol (40-60) mg/dL Heart Disease Risk Ratio Vitamin B12 (239-931) pg/mL Folic Acid (2.76 - >20) ng/mL Procalcitonin (0.030-0.080) ng/mL TSH 3rd Generation (0.470-4.680) mIU/L 12/08/23 12/08/23 12/08/23 Range/Units 05:30 07:02 11:23 WBC (4.23-9.07) x10^3/uL RBC (4.63-6.08) x10^6/uL Hgb (13.7-17.5) g/dL Hct (40.1-51.0) % MCV (79.0-92.2) fL MCH (25.7-32.2) pg MCHC (32.3-36.5) g/dL RDW (11.6-14.4) % Plt Count (163-337) x10^3/uL MPV (9.4-12.4) fL Gran % (34.0-67.9) % Immature Gran % (Auto) (0.001-0.429) % Nucleat RBC Rel Count (0.00-0.2) % Eos # (Auto) (0.04-0.54) x10^3/uL Immature Gran # (Auto) (0.001-0.031) x10^3u/L Absolute Lymphs (auto) (1.32-3.57) x10^3/uL Absolute Monos (auto) (0.30-0.82) x10^3/uL Absolute Nucleated RBC (0.00-0.012) x10^3u/L Lymphocytes % (21.8-53.1) % Monocytes % (5.3-12.2) % Eosinophils % (0.8-7.0) % Basophils % (0.2-1.2) % Absolute Granulocytes (1.78-5.38) x10^3/uL Basophils # (0.01-0.08) x10^3/uL D-Dimer (0.0-0.50) mg/L Puncture Site pCO2 (35-45) mmHg pO2 (75-100) mmHg Base Excess (-2.0-2.0) O2 Saturation (94-100) g/dF ABG pH (7.35-7.45) ABG HCO3 (22-28) ABG O2 Sat (Measured) (95-100) % Martell Test A-a Gradient a/A Ratio Hemoglobin Carboxyhemoglobin (0.0-6.9) % THgb Methemoglobin (1.4-1.5) % Temperature C POC O2 Flow Rate % Sodium (135-145) mmol/L Potassium (3.5-5.1) mmol/L Chloride (98-107) mmol/L Carbon Dioxide (22-30) mmol/L Anion Gap (5-15) MEQ/L BUN (9-20) mg/dL Creatinine (0.66-1.25) mg/dL Estimated GFR ML/MIN Glucose (74-106) mg/dL POC Glucometer 206 H 209 H (74 to 106) mg/dL Lactic Acid (0.4-2.0) Calcium (8.4-10.2) mg/dL Iron (49-181) ug/dL TIBC (261-497) ug/dL Iron Saturation (20-39) % Ferritin (17.9-464) ng/mL Total Bilirubin (0.2-1.3) mg/dL AST (17-59) U/L ALT (0-50) U/L Alkaline Phosphatase (38-126) U/L Troponin I (0.000-0.033) ng/mL NT-Pro-B Natriuret Pep (<300) pg/mL Serum Total Protein (6.3-8.2) g/dL Albumin (3.5-5.0) g/dL Triglycerides 171 H (30-150) mg/dL Cholesterol 273 H (50-200) mg/dL LDL Cholesterol 168 H (30-100) mg/dL HDL Cholesterol 62 H (40-60) mg/dL Heart Disease Risk Ratio 4.0 Vitamin B12 (239-931) pg/mL Folic Acid (2.76 - >20) ng/mL Procalcitonin (0.030-0.080) ng/mL TSH 3rd Generation (0.470-4.680) mIU/L 12/08/23 12/08/23 12/08/23 Range/Units 13:14 13:59 13:59 WBC (4.23-9.07) x10^3/uL RBC (4.63-6.08) x10^6/uL Hgb (13.7-17.5) g/dL Hct (40.1-51.0) % MCV (79.0-92.2) fL MCH (25.7-32.2) pg MCHC (32.3-36.5) g/dL RDW (11.6-14.4) % Plt Count (163-337) x10^3/uL MPV (9.4-12.4) fL Gran % (34.0-67.9) % Immature Gran % (Auto) (0.001-0.429) % Nucleat RBC Rel Count (0.00-0.2) % Eos # (Auto) (0.04-0.54) x10^3/uL Immature Gran # (Auto) (0.001-0.031) x10^3u/L Absolute Lymphs (auto) (1.32-3.57) x10^3/uL Absolute Monos (auto) (0.30-0.82) x10^3/uL Absolute Nucleated RBC (0.00-0.012) x10^3u/L Lymphocytes % (21.8-53.1) % Monocytes % (5.3-12.2) % Eosinophils % (0.8-7.0) % Basophils % (0.2-1.2) % Absolute Granulocytes (1.78-5.38) x10^3/uL Basophils # (0.01-0.08) x10^3/uL D-Dimer 1.69 H* (0.0-0.50) mg/L Puncture Site pCO2 (35-45) mmHg pO2 (75-100) mmHg Base Excess (-2.0-2.0) O2 Saturation (94-100) g/dF ABG pH (7.35-7.45) ABG HCO3 (22-28) ABG O2 Sat (Measured) (95-100) % Martell Test A-a Gradient a/A Ratio Hemoglobin Carboxyhemoglobin (0.0-6.9) % THgb Methemoglobin (1.4-1.5) % Temperature C POC O2 Flow Rate % Sodium (135-145) mmol/L Potassium (3.5-5.1) mmol/L Chloride (98-107) mmol/L Carbon Dioxide (22-30) mmol/L Anion Gap (5-15) MEQ/L BUN (9-20) mg/dL Creatinine (0.66-1.25) mg/dL Estimated GFR ML/MIN Glucose (74-106) mg/dL POC Glucometer 288 H (74 to 106) mg/dL Lactic Acid (0.4-2.0) Calcium (8.4-10.2) mg/dL Iron (49-181) ug/dL TIBC (261-497) ug/dL Iron Saturation (20-39) % Ferritin (17.9-464) ng/mL Total Bilirubin (0.2-1.3) mg/dL AST (17-59) U/L ALT (0-50) U/L Alkaline Phosphatase (38-126) U/L Troponin I 0.083 H* (0.000-0.033) ng/mL NT-Pro-B Natriuret Pep (<300) pg/mL Serum Total Protein (6.3-8.2) g/dL Albumin (3.5-5.0) g/dL Triglycerides (30-150) mg/dL Cholesterol (50-200) mg/dL LDL Cholesterol (30-100) mg/dL HDL Cholesterol (40-60) mg/dL Heart Disease Risk Ratio Vitamin B12 (239-931) pg/mL Folic Acid (2.76 - >20) ng/mL Procalcitonin (0.030-0.080) ng/mL TSH 3rd Generation (0.470-4.680) mIU/L 12/08/23 12/08/23 Range/Units 14:00 17:15 WBC (4.23-9.07) x10^3/uL RBC (4.63-6.08) x10^6/uL Hgb (13.7-17.5) g/dL Hct (40.1-51.0) % MCV (79.0-92.2) fL MCH (25.7-32.2) pg MCHC (32.3-36.5) g/dL RDW (11.6-14.4) % Plt Count (163-337) x10^3/uL MPV (9.4-12.4) fL Gran % (34.0-67.9) % Immature Gran % (Auto) (0.001-0.429) % Nucleat RBC Rel Count (0.00-0.2) % Eos # (Auto) (0.04-0.54) x10^3/uL Immature Gran # (Auto) (0.001-0.031) x10^3u/L Absolute Lymphs (auto) (1.32-3.57) x10^3/uL Absolute Monos (auto) (0.30-0.82) x10^3/uL Absolute Nucleated RBC (0.00-0.012) x10^3u/L Lymphocytes % (21.8-53.1) % Monocytes % (5.3-12.2) % Eosinophils % (0.8-7.0) % Basophils % (0.2-1.2) % Absolute Granulocytes (1.78-5.38) x10^3/uL Basophils # (0.01-0.08) x10^3/uL D-Dimer (0.0-0.50) mg/L Puncture Site RIGHT RADIAL pCO2 20 L* (35-45) mmHg pO2 141 H* (75-100) mmHg Base Excess -7.9 L (-2.0-2.0) O2 Saturation 92.0 L (94-100) g/dF ABG pH 7.45 (7.35-7.45) ABG HCO3 13.9 L* (22-28) ABG O2 Sat (Measured) 99.1 (95-100) % Martell Test YES A-a Gradient 91 a/A Ratio 0.61 Hemoglobin 12.8 Carboxyhemoglobin 6.4 (0.0-6.9) % THgb Methemoglobin 0.9 L (1.4-1.5) % Temperature 37.0 C POC O2 Flow Rate 36 % Sodium (135-145) mmol/L Potassium 4.7 (3.5-5.1) mmol/L Chloride (98-107) mmol/L Carbon Dioxide (22-30) mmol/L Anion Gap (5-15) MEQ/L BUN (9-20) mg/dL Creatinine (0.66-1.25) mg/dL Estimated GFR ML/MIN Glucose (74-106) mg/dL POC Glucometer 241 H (74 to 106) mg/dL Lactic Acid 3.7 H (0.4-2.0) Calcium (8.4-10.2) mg/dL Iron (49-181) ug/dL TIBC (261-497) ug/dL Iron Saturation (20-39) % Ferritin (17.9-464) ng/mL Total Bilirubin (0.2-1.3) mg/dL AST (17-59) U/L ALT (0-50) U/L Alkaline Phosphatase (38-126) U/L Troponin I (0.000-0.033) ng/mL NT-Pro-B Natriuret Pep (<300) pg/mL Serum Total Protein (6.3-8.2) g/dL Albumin (3.5-5.0) g/dL Triglycerides (30-150) mg/dL Cholesterol (50-200) mg/dL LDL Cholesterol (30-100) mg/dL HDL Cholesterol (40-60) mg/dL Heart Disease Risk Ratio Vitamin B12 (239-931) pg/mL Folic Acid (2.76 - >20) ng/mL Procalcitonin (0.030-0.080) ng/mL TSH 3rd Generation (0.470-4.680) mIU/L Micro Results-Entire Visit: Accuchecks Date 12/08/23 Date 12/08/23 Date 12/08/23 Date 12/07/23 - Radiology Exams Ordered Rad Exams-Entire Visit: Radiology Procedures Category Date Time Status CHEST 1 VIEW (PORTABLE) Stat Exams 12/07/23 11:54 Completed CHEST 1 VIEW (PORTABLE) Stat Exams 12/08/23 14:00 Completed CHEST WITH CONTRAST [CT] Stat Exams 12/08/23 13:29 Ordered ECHO W/2D AND DOPPLER [US] Stat Exams 12/07/23 16:15 Taken LIVER OR SPLEEN [US] Routine Exams 12/10/23 07:16 Ordered PELVIS (1 OR 2 VIEWS) Stat Exams 12/08/23 16:13 Completed - Procedures and Test Procedures and Tests throughout Hospitalization: Therapy Orders & Screens 12/07/23 15:27 EKG REPEAT IN AM Comment: Respiratory Therapy Consult ONCE Comment: Reason For Exam: 12/07/23 16:05 RT Screen per Nursing Assess ONCE Comment: Protocol Order Physician Instructions: Greater than 3 points order RT Admission Screen Reason For Exam: Triggered on Admission Diagnosis: Dyspnea/cough Diagnosis: Dyspnea/cough Pneumonia: Yes Home O2: No Asthma: No CHF: Yes Home CPAP/BIPAP: No Home Nebs/MDI: No Total Points: 6 ST Screen per Nursing Assess ONCE Comment: Protocol Order Physician Instructions: Greater than [address] Admission Screening Reason For Exam: Triggered on Admission Diagnosis: Dyspnea/cough CVA/Dyshpagia/Aphasia: No Cognitive Deficits: No Dehydration/Nutrition Deficit: No Reflux: No Oral-Motor Difficulties: No Pneumonia: Yes [facility] Resident: No Total Points: 5 12/07/23 19:06 Respiratory Therapy Assessment DAILY Comment: Diagnosis: Dyspnea/cough 12/08/23 13:12 EKG STAT Comment: Diagnosis: Dyspnea/cough EKG Reason: Other 12/08/23 13:49 EKG STAT Comment: Diagnosis: Dyspnea/cough 12/08/23 14:37 Oxygen NASAL CANNULA 4 lpm Comment: Diagnosis: Dyspnea/cough Discharge Exam General Appearance: mild distress Neurologic Exam: alert, oriented x 3 Ears, Nose, Throat Exam: normal ENT inspection Neck Exam: normal inspection Respiratory Exam: diminished breath sounds Cardiovascular Exam: tachycardia, irregular Gastrointestinal/Abdomen Exam: soft, normal bowel sounds Male Genitalia Exam: deferred Rectal Exam: deferred Back Exam: normal inspection Extremity Exam: normal inspection Skin Exam: normal color Final Diagnosis/Problem List - Final Discharge Diagnosis/Problem (1) Pneumonia Current Visit: Yes Status: Acute Code(s): J18.9 - PNEUMONIA, UNSPECIFIED O RGANISM (2) COPD exacerbation Current Visit: No Status: Acute Code(s): J44.1 - CHRONIC OBSTRUCTIVE PULMO NARY DISEASE W (ACUTE) EXACERBATION (3) Paroxysmal A-fib Current Visit: Yes Status: Acute Code(s): I48.0 - PAROXYSMAL ATRIAL FIBRILLATION (4) Hypothyroidism associated with surgical procedure Current Visit: Yes Status: Acute Code(s): E89.0 - POSTPROCEDURAL HYPOTHYROIDISM (5) Type 2 diabetes mellitus Current Visit: Yes Status: Acute (6) HLD (hyperlipidemia) Current Visit: Yes Status: Acute Code(s): E78.5 - HYPERLIPIDEMIA, UNSPECIFIED (7) HTN (hypertension) Current Visit: Yes Status: Acute Code(s): I10 - ESSENTIAL (PRIMARY) HYPERTENSION (8) Transaminitis Current Visit: No Status: Acute Code(s): R74.01 - ELEVATION OF LEVELS OF LIVER TRANSAMINASE LEVELS - Discharge Disposition: DC TO OTHER HOSP Condition: Stable Prescriptions: New Apixaban [Eliquis 2.5 mg Tablet] 5 mg PO BID tablet Ceftriaxone Sodium [ROCEPHIN 1 GM / 100 ML NaCl] 1 gm IV Q24H10 iv piggy Methylprednisolone Sod Suc 40M [solu-MEDROL] 40 mg IV Q12HT Levothyroxine Sodium 50 Mcg [Synthroid 50 Mcg] 50 mcg PO DAILY@0700 tablet Azithromycin 500 mg/250 ml [Zithromax 500 MG/ 250 ML NaCl Premix] 500 mg IV Q24H10 iv piggy Follow up with: YUMIKO KAY MD [Primary Care Provider] -
[2023-12-08 19:07] VITALS: RESP 16; O2SAT 93
[2023-12-08] MEDS: Sodium Chloride 0.9% 500 ML 500 ML IV SCH (19:59)
[2023-12-08 20:04] VITALS: BP 122/86
[2023-12-09 09:07] LABS: HBsAg Screen Negative (Negative); HCV Ab Non Reactive (Non Reactive); Hep A Ab, IgM Negative (Negative); Hep B Core Ab, IgM Negative (Negative)
== END 2023-12-08 20:15 ==
LOC: ED 11:35 → MED SURG 15:25 → ICU 12-08 16:40
PROVIDERS: ADMIT Internal Medicine; ATTEND Internal Medicine
DX: J18.9 Pneumonia, unspecified organism (principal); R07.9 Chest pain, unspecified; J44.1 Chronic obstructive pulmonary disease with (acute) exacerbation; I48.0 Paroxysmal atrial fibrillation; E89.0 Postprocedural hypothyroidism; E11.9 Type 2 diabetes mellitus without complications; E78.5 Hyperlipidemia, unspecified; I10 Essential (primary) hypertension; R74.01 Elevation of levels of liver transaminase levels; C73 Malignant neoplasm of thyroid gland; I25.2 Old myocardial infarction; I25.10 Atherosclerotic heart disease of native coronary artery without angina pectoris; R79.89 Other specified abnormal findings of blood chemistry; Z86.73 Personal history of transient ischemic attack (TIA), and cerebral infarction without residual deficits; Z79.899 Other long term (current) drug therapy; Z79.01 Long term (current) use of anticoagulants; Z91.148 Patient's other noncompliance with medication regimen for other reason
CPT/HCPCS: 0241U; 36000; 36415; 36600; 71045; 72170; 80053; 80061; 80074; 82375; 82607; 82728; 82746; 82803; 82947; 83036; 83540; 83550; 83605; 83721; 83880; 84145; 84443; 84484; 85025; 85379; 85610; 87040; 93005; 93041; 93306; 94640; 94760; 94762; 96374; 96375; 99285; 93268; 96365; J0456; J0696; J1817; J1940; J2405; J2919; Q3014; A9270-GY; G0378